=== PATIENT | female | born 1965 | race Caucasian/White ===

== ENCOUNTER → 2016-05-05 | Outpatient (CLI) | payer OTHER ==
[~2016-05-05] MED LIST: NA BICARBONATE 50 MEQ/50 ML VIAL ONE
--- NOTE | 2016-05-05 13:49 | DX ---
PA chest x-ray 1337 hours. HISTORY: Left-sided thoracentesis. Rule out pneumothorax. FINDINGS: Comparison to June 28, 2014 chest x-ray study and prior CT chest study from [facility] from 2016. There is small band of residual atelectasis at the left base with tiny residual left effusion. There is no evidence of pneumothorax on the left. There is no new consolidation. Heart size and pulmonary v asculature are normal. Osseous structures are unchanged. IMPRESSION: 1. No evidence of pneumothorax following thoracentesis procedure. 2. Small amount of residual subsegmental atelectasis at the left base with possible tiny effusion.
[2016-05-05 15:16] LABS: LD, PLEURAL FLUID 620 IU/L
--- NOTE | 2016-05-05 15:44 | US ---
Ultrasound left breast HISTORY: Breast cancer with reconstructive surgery. Fluid collection behind the implant on the left. Comparison to prior outside CT images from [facility] from April 28, 2016 FINDINGS: Ultrasound was performed on the left. There is very poor visualization of the retro implant fluid collection by ultrasound. This collection probably measures about 8.9 x 1 x 4.2 cm. A safe acc ess for possible needle aspiration cannot be appreciated. IMPRESSION: Small fluid collection identified behind the implant. A safe access for possible aspirati on could not be identified. If there is high clinical concern for possible infection or metastatic di sease associated with this fluid collection, this could potentially be aspirated with CT guidance alt kd there is moderate risk of damaging the implant.
--- NOTE | 2016-05-05 15:46 | US ---
Ultrasound-Guided Thoracentesis History: Left pleural effusion. Crosscutting Measure #226: Current tobacco user: no. Findings: Following informed consent, the left pleural effusion was localized by ultrasound. The skin was then prepped and draped in sterile fashion. Following local anesthesia with 1% lidocaine, a thor acentesis needle and catheter were advanced into the pleural fluid. A total of 300 mL of serous fluid was obtained and sent for the requested studies. Post thoracentesis image of the left hemithorax demonstrates no significant residual effusion. Impression: Successful ultrasound-guided thoracentesis obtaining 300 mL of serous fluid sent for the requested studies.
[2016-05-06 15:56] LABS: FINAL DIAGNOSIS See Comments (()); MICROSCOPIC DESCRIPTION See Comments (()); SPECIAL STUDIES See Comments (())
[2016-05-14 15:53] LABS: HER2 FISH DISCLAIMER See Comments (()); HER2 FISH INTERPRETATION See Comments (()); HER2 FISH RESULT SUMMARY Negative (()); HER2 FISH TISSUE ID 17P 74 (())
== END ==
LOC: FIMAGING 11:45
PROVIDERS: ATTEND Internal Medicine Hematology & Oncology
PROC: 0W9B3ZX Drainage of Left Pleural Cavity, Percutaneous Approach, Diagnostic (ICD-10-PCS; principal; 2016-05-05)
DX: J91.0 Malignant pleural effusion (principal); Z85.3 Personal history of malignant neoplasm of breast
CPT/HCPCS: 85060-90; 88184-90; 88185-91

== ENCOUNTER 2016-05-06 15:30 | Emergency (ER) | payer OTHER ==
[2016-05-06 15:37] VITALS: RESP 16; TEMP 97.9
[2016-05-06] MEDS ORDERED: NS 1,000 ML IV ONE (15:41)
--- NOTE | 2016-05-06 16:01 | EDPHY ---
H & P Time Seen by Provider: 05/06/16 15:42 HPI/ROS: CHIEF COMPLAINT: Left-sided chest and back pain, shortness of breath. HISTORY OF PRESENT ILLNESS: This patient is a 51-year-old female with a history of breast cancer who presents for CTA chest to r/o PE. She presents with back pain, lower chest pain, and shortness of breath for the past 2 weeks. The chest pain is below her left breast and she describes an area of swelling and erythema. The chest pain is worsened with breathing and is associated with left sided back pain. The shortness of breath and difficulty breathing are now causing her to get out of breath with normal exertion. Associated with swelling and skin tightness of the left breast area (implant in place). She has seen her plastic surgeon for the implant-related swelling and was placed on an abx 8 days ago (unknown abx). She had a CT scan recently that showed fluid in her left lung and behind her breast plate. She had a thoracentesis 2d ago with 300ml drained, though the SOB has not changed. Breast ultrasound yesterday revealed minimal fluid around the implant, not felt to be sufficient to drain. REVIEW OF SYSTEMS: A complete 10-point review of systems was performed and is negative except for those items mentioned in the HPI. Past Medical/Surgical History: Breast cancer treated with chemotherapy, mastectomy, radiation. Social History: Nonsmoker. Smoking Status: Never smoked Physical Exam: General Appearance: Alert, pleasant Eyes: Pupils equal and round, no conjunctival pallor or injection ENT, Mouth: Mucous membranes moist Neck: Normal inspection Respiratory: Rales at right base. Decreased breath sounds at left base. Cardiovascular: Regular rate and rhythm Chest: Left breast: Tense, with erythema on the inferior aspect. Patchy erythematous rash just below left breast. No warmth. Gastrointestinal: Abdomen is soft and non-tender Neurological: A&O, nonfocal, normal gait Skin: Warm and dry Extremities: Nontender, no pedal edema Psychiatric: Mood and affect normal Constitutional: Initial Vital Signs Temperature (C) 36.6 C 05/06/16 15:35 Heart Rate 90 05/06/16 15:35 Respiratory Rate 16 05/06/16 15:35 Blood Pressure 107/86 H 05/06/16 15:35 O2 Sat (%) 92 05/06/16 15:35 O2 Delivery Mode Room Air Allergies/Adverse Reactions: No Known Allergies Allergy (Unverified 06/15/14 14:01) Medical Decision Making - Diagnostics Imaging: Study: CT of the chest. Indication: Pain, difficulty breathing. Results: 1. No definite pulmonary thromboemboli. 2. Minimal left pleural effusion, with left lower lobe pneumonitis versus atelectasis. 3. No pneumothorax. 4. Fluid posterior to the left breast implant again noted. The study was read by the radiologist, Dr. Shipley. I viewed the images myself on the PACS system. ED Course/Re-evaluation: This pt presents with subacute SOB, which has persisted after recent thorascentesis. Vital signs normal, including oxygen saturation. Concern for implant-related sx, given tenseness of area, which could restrict her breathing. The area of erythema is concerning for cellulitis, though this area is not warm and not indurated, and she is already on abx. Query metastatic disease. I reviewed the patient's past medical notes. The pathology report for the fluid from the thoracentesis is still pending. An IV was established and labs ordered. 1L IV saline administered for hydration. Chest CT ordered. 1726: Dr. Shpiley communicated the results of the chest CT to me as no evidence of pulmonary embolism. Results d/w pt, will f/u with oncologist and plastic surgeon. Differential Diagnosis: includes though not limited to PE, pulm edema, pneumonia, empyema, cellulitis, implant infection, metastatic disease. - Data Points Laboratory Results: Laboratory Results 05/06/16 16:15 05/06/16 16:15 Medications Given: Discontinued Medications Sodium Chloride (Ns) 1,000 mls @ 0 mls/hr IV ONCE ONE PRN Reason: Wide Open Stop: 05/06/16 15:42 Last Admin: 05/06/16 16:41 Dose: 1,000 mls Departure - Departure Disposition: Home, Routine, Self-Care Clinical Impression: Dyspnea Qualifiers: Dyspnea type: dyspnea on exertion Qualifier Code: (R06.09) Other forms of dyspnea Malignant neoplasm of breast Qualifiers: Breast location: unspecified site of breast Patient sex: female Laterality: left Qualifier Code: (C50.912) Malignant neoplasm of unspecified site of left female breast Condition: Good Instructions: Dyspnea (ED) Additional Instructions: Your chest CT today showed no pulmonary embolism. Call Dr. Low tomorrow to set up a follow up appointment. Return to the emergency department for any serious worsening of condition. Referrals: Diana Low MD [Primary Care Provider] - As per Instructions Report Scribed for: Kate Harkins Report Scribed by: Juliocesar Patel Date of Report: 05/06/16 Time of Report: 16:01 Physician Review and Approval Statement: 05/06/16 16:01 Portions of this note were transcribed by a biomedical engineering professor. I personally performed a history, physical exam, medical decision making, and confirmed accuracy of information the transcribed note.
[2016-05-06 16:28] LABS: % IMMATURE GRANULYOCYTES 0.3 % (0.0-1.1); ABSOLUTE IMMATURE GRANULOCYTES 0.02 10^3/uL (0.00-0.10); ADD DIFF? NO; ADD MORPH? NO; ADD SCAN? NO; ATYPICAL LYMPHOCYTE FLAG 30 (0-99); FRAGMENT RBC FLAG 0 (0-99); HEMATOCRIT 40.9 % (38.0-47.0); HEMOGLOBIN 13.7 g/dL (12.6-16.3); LEFT SHIFT FLG 0 (0-99); LIPEMIA HEMOLYSIS FLAG 80 (0-99); MEAN CELL HEMOGLOBIN 30.6 pg (27.9-34.1); MEAN CELL HEMOGLOBIN CONCENTR. 33.5 g/dL (32.4-36.7); MEAN CELL VOLUME 91.5 fL (81.5-99.8); MEAN PLATELET VOLUME 9.2 fL (8.7-11.7); PLATELET CLUMPS FLAG 10 (0-99); PLATELET COUNT 372 10^3/uL (150-400); RED BLOOD CELL COUNT 4.47 10^6/uL (4.18-5.33); RED CELL DISTRIBUTION WIDTH 12.3 % (11.5-15.2)
[2016-05-06] MEDS ORDERED: IOPAMIDOL (ISOVUE 370) 100 ML BTL IV ONE (16:39)
[2016-05-06 16:51] LABS: ANION GAP 11 mEq/L (8-16); CALCIUM 9.2 mg/dL (8.5-10.4); CARBON DIOXIDE 26 mEq/l (22-31); CHLORIDE 104 mEq/L (97-110); CREATININE 0.8 mg/dL (0.6-1.0); GLOMERULAR FILTRATION RATE > 60; GLUCOSE 96 mg/dL (70-100); POTASSIUM 4.4 mEq/L (3.5-5.2); SODIUM 141 mEq/L (134-144)
--- NOTE | 2016-05-06 17:38 | CT ---
CT Chest Pulmonary Angiogram, With Contrast Enhancement and Multiplanar Reconstructions, at 1655 hour s History: Chest pain, dyspnea, breast cancer. Technique: 1.25-mm axial multidetector helical CT angiogram imaging was performed through the chest while 90 mL Isovue-370 were injected intravenously, without complication. The images were then trans ferred to an independent workstation where multiplanar and three-dimensional reconstructions were per formed by the interpreting physician and reviewed at multiple windows. Dose reduction techniques wer e utilized. Comparison: Chest x-ray from yesterday. CT Pulmonary Angiogram Findings: No CT evidence of definite pulmonary thromboemboli. No aortic aneu rysm or dissection. Aberrant right subclavian artery coursing posterior to the esophagus. CT Chest Findings: Minimal left pleural effusion. Patchy left lower lobe atelectasis versus pneumon itis. No suspicious pulmonary nodules or significant adenopathy. No pneumothorax. The heart is nor mal in size, without a pericardial effusion. Bilateral reconstruction implants. Fluid posterior to the left implant measures 17 mm in thickness and 8 cm in transverse dimension. Surgical clips left a xillary region from previous lymph node dissection, with residual scarring. Impressions 1. No definite pulmonary thromboemboli. 2. Minimal left pleural effusion, with left lower lobe pneumonitis versus atelectasis. 3. No pneumothorax. 4. Fluid posterior to the left breast implant again noted. Findings and recommendations discussed with Emergency Department physician, Dr. Kate Harkins at 1720 hours, on May 06, 2016. Final report concurs with initial preliminary interpretation.
[2016-05-06 17:45] VITALS: BP 100/73; PULSE 67; O2SAT 98
== END 2016-05-06 17:45 | disposition home or self-care (01) ==
DX: R06.09 Other forms of dyspnea (principal); C50.912 Malignant neoplasm of unspecified site of left female breast
CPT/HCPCS: 82947-QW; Q9967

== ENCOUNTER → 2016-06-23 | Outpatient (CLI) | payer OTHER ==
[~2016-06-23] MED LIST changes: +LIDOCAINE 1% 30 ML SDV ONE
== END ==
LOC: FIMAGING 14:05
PROVIDERS: ATTEND Nurse Practitioner
PROC: 0W9B3ZZ Drainage of Left Pleural Cavity, Percutaneous Approach (ICD-10-PCS; principal; 2016-06-23)
DX: J90 Pleural effusion, not elsewhere classified (principal); J98.11 Atelectasis

== ENCOUNTER 2016-07-03 11:48 | Day surgery (SDC) | payer OTHER ==
--- NOTE | 2016-07-03 07:47 | GHP ---
[f rep st] HISTORY AND PHYSICAL DATE OF ADMISSION: 07/03/2016 CHIEF COMPLAINT: Breast cancer. HISTORY OF PRESENT ILLNESS: The patient is a 51-year-old woman who was diagnosed with locally advanced breast cancer in 2014. She underwent chemotherapy. Unfortunately, she has recurrence and requires additional chemotherapy. PAST MEDICAL HISTORY: Breast cancer, asthma, back pain. PAST SURGICAL HISTORY: L4-L5 fusion, eye surgery, bilateral mastectomies with reconstruction MEDICATIONS: Please see medication reconcillation ALLERGIES: No known drug allergies. SOCIAL HISTORY: She is with 2 children. She denies tobacco or illegal drug use. FAMILY HISTORY: Her brother had brain cancer. Her uncle had colon cancer. REVIEW OF SYSTEMS: Significant for chronic back pain, otherwise negative. PHYSICAL EXAMINATION: GENERAL: Pleasant, well-nourished, well-groomed woman. HEENT: Normocephalic. No gross hearing deficit. Mucous membranes moist. Pupils equal and round. No scleral icterus. LUNGS: Clear to auscultation bilaterally. No increased work of breathing. CARDIAC: Regular rate. MUSCULOSKELETAL: Normal nails. SKIN: Warm and dry. IMPRESSION AND PLAN: The patient is a 51-year-old with locally advanced breast cancer and recurrence. Will attempt port placement. We discussed the risks and benefits, including, but not limited to, stroke, heart attack, , blood clots, infection, and bleeding. She understands if it becomes infected it will need to be removed. She had her questions answered to her satisfaction. /[id number]/MODL MTDD
[~2016-07-03 11:48] MED LIST changes: -LIDOCAINE 1% 30 ML SDV ONE; -NA BICARBONATE 50 MEQ/50 ML VIAL ONE; +ceFAZolin 2 GM/DEXTROSE 100 ML IV ONE
[2016-07-03] MEDS ORDERED: CEFAZOLIN 2 GM/DEXTROSE/100 ML BAG IV ONE (12:35)
[2016-07-03] MEDS ORDERED: LIDOCAINE 1% 2 ML INJ ONE (12:35)
[2016-07-03] MEDS ORDERED: MIDAZOLAM 2 MG/2 ML VIAL ONE (14:09)
[2016-07-03] MEDS ORDERED: fentaNYL 100 MCG/2 ML INJ ONE (14:12)
[2016-07-03] MEDS ORDERED: PROPOFOL/EMULSION 500 MG/50 ML BOTTLE IV ONE (14:13)
[2016-07-03] MEDS ORDERED: BUPIVACAINE 0.5% 30 ML SDV ONE (14:18)
[2016-07-03] MEDS ORDERED: SKIN ADHESIVE (DERMABOND) 1 EACH TP ONE (14:18)
[2016-07-03] MEDS ORDERED: LIDOCAINE 1% 30 ML SDV ONE (14:19)
[2016-07-03] MEDS ORDERED: HYDROCODONE/APAP 5/325 TAB PO PRN (15:20)
--- NOTE | 2016-07-04 14:47 | GOP ---
[f rep st] OPERATIVE REPORT DATE OF OPERATION: 07/03/2016 SURGEON: Bela Cota MD ANESTHESIA: General monitored anesthesia care with IV sedation. ANESTHESIOLOGIST: Maribel Waldron MD. PREOPERATIVE DIAGNOSIS: Breast cancer. POSTOPERATIVE DIAGNOSIS: Breast cancer. PROCEDURE PERFORMED: Right subclavian Slim PowerPort placement. FINDINGS: Tip in the SVC/RA junction. SPECIMENS: None. ESTIMATED BLOOD LOSS: 10 cc. INDICATIONS: Patient is a 51-year-old woman who was treated for breast cancer several years ago. She has recurrence and will require chemotherapy again. DESCRIPTION OF PROCEDURE: Patient was brought into the operating room, placed supine on the table and IV general anesthesia was administered. Her bilateral neck and chest were prepped and draped in the usual sterile fashion. I infiltrated all sites with 0.5% Marcaine mixed with 1% lidocaine prior to making incision. I accessed her right subclavian vein on the 2nd attempt with dark return of blood flow. I threaded the guidewire and removed the needle. I created a pocket to accommodate the port in her right chest at the site of her previous port. I tunneled this up to the insertion site. Under fluoroscopy, I measured the catheter and cut it to size. Under fluoroscopy and using the Seldinger technique, I placed a dilator and sheath over the wire. I removed the dilator and the wire. I placed the catheter through the sheath; however, I was having difficulty threading it. The catheter was making a right angle. I then removed the catheter. I placed the guidewire back in place through the sheath. I removed the sheath and held pressure. I then obtained a 10-Icelandic sheath and placed this over the guidewire under fluoroscopy. It made the turn nicely. I then could thread the catheter easily through the sheath and peeled away the sheath. Placement was confirmed with fluoroscopy. The port withdrew blood easily and was flushed with heparin. The pocket was closed with 3-0 Vicryl, followed by 4-0 Monocryl. Dermabond applied. She was awakened in the operating room and transferred to PACU in stable condition. Her post operative chest x-ray showed the port in good position at the cavoatrial junction without pneumothorax and her left pleural effusion is reaccumulating. /[id number]/MODL MTDD
== END 2016-07-03 17:35 | disposition home or self-care (01) ==
LOC: FSGY 11:48
PROVIDERS: ATTEND Surgery
DX: C50.919 Malignant neoplasm of unspecified site of unspecified female breast (principal); J90 Pleural effusion, not elsewhere classified; G89.29 Other chronic pain; Z98.1 Arthrodesis status; Z90.13 Acquired absence of bilateral breasts and nipples
CPT/HCPCS: C1788; J0690; J2250; J2704; J3010

== ENCOUNTER 2016-07-14 07:43 | Emergency (ER) | payer OTHER ==
--- NOTE | 2016-07-14 08:07 | EDPHY ---
H & P Time Seen by Provider: 07/14/16 08:03 HPI/ROS: CHIEF COMPLAINT: Dyspnea HISTORY OF PRESENT ILLNESS: This patient is a 51 year old female with history of breast cancer on chemotherapy who presents to the Emergency Department complaining of difficulty breathing over the past four days. Onset of cough 4 days ago, associated with gradually increasing SOB. She has a history of intermittent chest tightness and dyspnea since April for which she has had thorascentesis twice for a left pleural effusion with successful improvement to her symptoms each time. Upon arrival, she continues to complain of persistent exertional dyspnea with associated persistent cough. She denies fever or chills. She had a port placed two weeks prior to arrival without complication. Her next chemotherapy session is tomorrow. REVIEW OF SYSTEMS: Constitutional: No fever, no chills Eyes: No visual changes ENT: No sore throat Respiratory: +shortness of breath, +cough Cardiac: +chest tightness Gastrointestinal: No nausea, no vomiting, no abdominal pain Genitourinary: No hematuria, no dysuria Musculoskeletal: No leg pain or swelling Skin: No rash Neurological: No headache, no numbness, no weakness Psychiatric: No depression Past Medical/Surgical History: Breast cancer. Social History: Non-smoker. Smoking Status: Never smoked Physical Exam: General Appearance: Alert, no respiratory distress Eyes: Pupils equal and round, no conjunctival pallor or injection ENT, Mouth: Mucous membranes moist Neck: Normal inspection Respiratory: Rales at the bases Chest: Right-sided port with mild erythema on superior edge of the surgical incision. Breast implants; left breast is firm without erythema or tenderness Cardiovascular: Regular rate and rhythm Gastrointestinal: Abdomen is soft and non-tender Neurological: A&O, nonfocal, normal gait Skin: Warm and dry, no rash Extremities: Nontender, no pedal edema Psychiatric: Mood and affect normal Constitutional: Initial Vital Signs Temperature (C) 36.3 C 07/14/16 07:45 Heart Rate 109 H 07/14/16 07:45 Respiratory Rate 16 07/14/16 07:45 Blood Pressure 110/75 07/14/16 07:45 O2 Sat (%) 88 L 07/14/16 07:45 O2 Delivery Mode Room Air O2 (L/minute) 2 Allergies/Adverse Reactions: No Known Allergies Allergy (Verified 07/02/16 17:02) Home Medications: Medication Instructions Recorded Dulera 100 Mcg/5 Mcg Inhaler 07/02/16 Herbals/Supplements -Info Only 07/02/16 Oxycodone HCl 07/02/16 Prochlorperazine Maleate 07/02/16 levOFLOXACIN [levAQUIN (RX)] 750 mg PO DAILY #9 tab 07/14/16 Medical Decision Making - Diagnostics EKG Interpretation: The 12 lead EKG was interpreted by myself reveals sinus rhythm, rate 93; ventricular premature complex' borderline R wave progression in the anterior leads. Imaging: Imaging Impressions Chest X-Ray 07/14/16 08:30 Impression: 1. Stable positioning of the right-sided central venous catheter MediPort. 2. Reduction in the size of the left pleural effusion and degree of left basilar atelectatic change, compared to 07/03/2016. Chest/Thorax CTA 07/14/16 10:06 Impression: 1. No acute thrombopulmonary embolic disease. 2. Small left pleural effusion and left basilar compressive atelectasis are unchanged. 3. New infectious inflammatory groundglass opacities in the right upper lobe and right lower lobe with associated diffuse bronchitis and bronchiolitis. 4. Abnormal left supraclavicular and left axillary lymph nodes and small sclerotic lesion in the sternum are unchanged. Findings discussed with Emergency Department physician, Dr. Kate Harkins on July 14, 2016 at 1130 hours. ED Course/Re-evaluation: This 51 year old female with breast cancer on chemotherapy has a history of intermittent exertional dyspnea requiring chest tube drainage who presents complaining of exertional dyspnea over the past four days without any identified alleviating factors. She is tachycardic at 109 with O2 sat at 88% on RA. She has a left-sided port placement with mild erythema superior to the surgical site but no other indications of infection or other complication. Patient placed on O2 via nasal cannula. Will proceed with EKG and chest x-ray. Prior medical records reviewed by myself, including visit to the ED in 04/2016. Chest x-ray reviewed and does not reveal any explanatory factor for the patient' s complaint of exertional dyspnea. Small left pleural effusion present. Will proceed with CTA of the chest. CTA results reported to me by the radiologist. Concerning for pneumonitis, infectious vs chem-related. Will start pt on Levaquin. 1139: I discussed imaging and lab results with the patient. She will be discharged home with instructions to follow-up as an outpatient tomorrow with her oncologist. She declined in-home O2 despite my recommendation. She is clear that she will need to return to the ED for any worsening dyspnea or chest discomfort. O2 Sat ranges from 90-91% on RA prior to discharge. Differential Diagnosis: includes though not limited to pneumonia, pleural effusion, PE, ACS, metastatic disease. - Data Points Laboratory Results: Laboratory Results 07/14/16 09:20 07/14/16 09:20 07/14/16 07/14/16 07/14/16 09:45 09:20 09:20 WBC 4.21 10^3/uL 10^3/uL (3.80-9.50) RBC 3.78 10^6/uL L 10^6/uL (4.18-5.33) Hgb 12.3 g/dL L g/dL (12.6-16.3) Hct 35.9 % L % (38.0-47.0) MCV 95.0 fL fL (81.5-99.8) MCH 32.5 pg pg (27.9-34.1) MCHC 34.3 g/dL g/dL (32.4-36.7) RDW 16.2 % H % (11.5-15.2) Plt Count 160 10^3/uL 10^3/uL (150-400) MPV 9.0 fL fL (8.7-11.7) Neut % (Auto) 77.3 % H % (39.3-74.2) Lymph % (Auto) 19.2 % % (15.0-45.0) Gray % (Auto) 1.4 % L % (4.5-13.0) Eos % (Auto) 0.7 % % (0.6-7.6) Baso % (Auto) 0.7 % % (0.3-1.7) Nucleat RBC Rel Count 0.0 % % (0.0-0.2) Absolute Neuts (auto) 3.25 10^3/uL 10^3/uL (1.70-6.50) Absolute Lymphs (auto) 0.81 10^3/uL L 10^3/uL (1.00-3.00) Absolute Monos (auto) 0.06 10^3/uL L 10^3/uL (0.30-0.80) Absolute Eos (auto) 0.03 10^3/uL 10^3/uL (0.03-0.40) Absolute Basos (auto) 0.03 10^3/uL 10^3/uL (0.02-0.10) Absolute Nucleated RBC 0.00 10^3/uL 10^3/uL (0-0.01) Immature Gran % 0.7 % % (0.0-1.1) Immature Gran # 0.03 10^3/uL 10^3/uL (0.00-0.10) PT 13.5 SEC SEC (12.0-15.0) INR 1.04 (0.83-1.16) APTT 23.0 SEC SEC (23.0-38.0) Sodium 136 mEq/L mEq/L (134-144) Potassium 4.2 mEq/L mEq/L (3.5-5.2) Chloride 103 mEq/L mEq/L (97-110) Carbon Dioxide 24 mEq/l mEq/l (22-31) Anion Gap 9 mEq/L mEq/L (8-16) BUN 16 mg/dL mg/dL (7-23) Creatinine 0.8 mg/dL mg/dL (0.6-1.0) Estimated GFR > 60 Glucose 112 mg/dL H mg/dL (70-100) Calcium 8.9 mg/dL mg/dL (8.5-10.4) Medications Given: Discontinued Medications Levofloxacin (Levaquin) 750 mg PO EDNOW ONE PRN Reason: Protocol Stop: 07/14/16 11:40 Last Admin: 07/14/16 12:00 Dose: 750 mg Departure - Departure Disposition: Home, Routine, Self-Care Clinical Impression: Pneumonitis Condition: Good Instructions: Pneumonitis (ED) Additional Instructions: 1. Keep your appointment tomorrow with your oncologist. 2. Take Levaquin as directed for the entire course of the prescription. 3. Return to the Emergency Department with worsening shortness of breath or chest tightness or for other serious concerns. Referrals: Megan Kee PA [Primary Care Provider] - As per Instructions Prescriptions: levOFLOXACIN [levAQUIN (RX)] 750 mg PO DAILY #9 tab Report Scribed for: Kate Harkins Report Scribed by: Gladis Mcclendon Date of Report: 07/14/16 Time of Report: 08:06 Physician Review and Approval Statement: 07/14/16 08:06 Portions of this note were transcribed by a medical billing manager. I personally performed a history, physical exam, medical decision making, and confirmed accuracy of information the transcribed note.
--- NOTE | 2016-07-14 08:21 | CPEKG ---
Heart Rate: 93 RR Interval: 645 P-R Interval: 160 QRSD Interval: 68 QT Interval: 332 QTC Interval: 413 P [place]: 73 QRS [place]: 31 T Wave [place]: 19 EKG Severity - BORDERLINE ECG - EKG Impression: SINUS RHYTHM EKG Impression: VENTRICULAR PREMATURE COMPLEX EKG Impression: BORDERLINE R WAVE PROGRESSION, ANTERIOR LEADS Electronically Signed By: Kate Harkins 14-Jul-2016 10:16:06
[2016-07-14 09:33] LABS: % IMMATURE GRANULYOCYTES 0.7 % (0.0-1.1); ABSOLUTE IMMATURE GRANULOCYTES 0.03 10^3/uL (0.00-0.10); ADD DIFF? NO; ADD MORPH? NO; ADD SCAN? NO; ATYPICAL LYMPHOCYTE FLAG 30 (0-99); FRAGMENT RBC FLAG 0 (0-99); HEMATOCRIT 35.9 % (38.0-47.0); HEMOGLOBIN 12.3 g/dL (12.6-16.3); LEFT SHIFT FLG 30 (0-99); LIPEMIA HEMOLYSIS FLAG 90 (0-99); MEAN CELL HEMOGLOBIN 32.5 pg (27.9-34.1); MEAN CELL HEMOGLOBIN CONCENTR. 34.3 g/dL (32.4-36.7); PLATELET CLUMPS FLAG 0 (0-99); PLATELET COUNT 160 10^3/uL (150-400); RED BLOOD CELL COUNT 3.78 10^6/uL (4.18-5.33); RED CELL DISTRIBUTION WIDTH 16.2 % (11.5-15.2)
[2016-07-14 09:44] LABS: ANION GAP 9 mEq/L (8-16); CALCIUM 8.9 mg/dL (8.5-10.4); CARBON DIOXIDE 24 mEq/l (22-31); CHLORIDE 103 mEq/L (97-110); CREATININE 0.8 mg/dL (0.6-1.0); GLOMERULAR FILTRATION RATE > 60; GLUCOSE 112 mg/dL (70-100); POTASSIUM 4.2 mEq/L (3.5-5.2); SODIUM 136 mEq/L (134-144)
[2016-07-14 10:28] LABS: INR 1.04 (0.83-1.16); PROTIME(PATIENT) 13.5 SEC (12.0-15.0)
[2016-07-14] MEDS ORDERED: IOPAMIDOL (ISOVUE 370) 100 ML BTL IV ONE (10:37)
[2016-07-14 12:14] VITALS: RESP 16
[2016-07-14 12:15] VITALS: BP 106/65; PULSE 73; TEMP 97.9; O2SAT 91
== END 2016-07-14 12:15 | disposition home or self-care (01) ==
DX: J18.9 Pneumonia, unspecified organism (principal); Z85.3 Personal history of malignant neoplasm of breast
CPT/HCPCS: Q9967

== ENCOUNTER → 2016-07-22 | Outpatient (CLI) | payer OTHER | LOC: FLAB 12:51 → EDSTATUS 12:52 → FIMAGING 12:52 | PROVIDERS: ATTEND Internal Medicine Hematology & Oncology | DX: J90 Pleural effusion, not elsewhere classified (principal); C50.412 Malignant neoplasm of upper-outer quadrant of left female breast ==

== ENCOUNTER → 2016-08-11 | Outpatient (CLI) | payer OTHER | LOC: FIMAGING 09:57 | PROVIDERS: ATTEND Internal Medicine Hematology & Oncology | DX: C79.51 Secondary malignant neoplasm of bone (principal); Z85.3 Personal history of malignant neoplasm of breast | CPT/HCPCS: 78306; A9503; J1642 ==

== ENCOUNTER 2016-09-10 15:08 | Day surgery (SDC) | payer OTHER ==
[2016-09-10] MEDS ORDERED: ACETAMINOPHEN 325 MG TAB PO ONE (15:30)
[2016-09-10] MEDS ORDERED: ALTEPLASE 2 MG VIAL IVP ONE (16:30)
== END 2016-09-10 21:05 | disposition home or self-care (01) ==
LOC: FOBOP 15:08
PROVIDERS: ATTEND Internal Medicine Hematology & Oncology
PROC: 30233N1 Transfusion of Nonautologous Red Blood Cells into Peripheral Vein, Percutaneous Approach (ICD-10-PCS; principal; 2016-09-10)
DX: C50.919 Malignant neoplasm of unspecified site of unspecified female breast (principal); C79.89 Secondary malignant neoplasm of other specified sites; D64.81 Anemia due to antineoplastic chemotherapy; D70.2 Other drug-induced agranulocytosis; J91.0 Malignant pleural effusion; T45.1X5A Adverse effect of antineoplastic and immunosuppressive drugs, initial encounter
CPT/HCPCS: 36430; P9016; J1642; J2997

== ENCOUNTER 2016-10-08 10:25 | Outpatient (CLI) | payer OTHER ==
[2016-10-08] MEDS ORDERED: ACETAMINOPHEN 325 MG TAB PO ONE (13:30)
[2016-10-08] MEDS ORDERED: FUROSEMIDE 20 MG/2 ML VIAL IVP ONE (13:30)
[2016-10-08] MEDS ORDERED: diphenhydrAMINE 25 MG CAP PO ONE (13:30)
== END 2016-10-08 16:37 | disposition home or self-care (01) ==
LOC: FOBOP 10:25
PROVIDERS: ATTEND Internal Medicine Hematology & Oncology
PROC: 30263N1 (ICD-10-PCS; principal; 2016-10-08)
DX: C50.919 Malignant neoplasm of unspecified site of unspecified female breast (principal)
CPT/HCPCS: 36430; P9016; J1642; J1940

== ENCOUNTER → 2016-11-02 | Outpatient (CLI) | payer OTHER | LOC: FIMAGING 08:23 | PROVIDERS: ATTEND Internal Medicine Hematology & Oncology | DX: C79.51 Secondary malignant neoplasm of bone (principal); C50.919 Malignant neoplasm of unspecified site of unspecified female breast | CPT/HCPCS: 78306; A9503; J1642 ==

== ENCOUNTER 2016-11-10 17:29 | Outpatient (CLI) | payer OTHER ==
[2016-11-10] MEDS ORDERED: diphenhydrAMINE 25 MG CAP PO ONE (18:00)
[2016-11-10] MEDS ORDERED: ACETAMINOPHEN 325 MG TAB PO ONE (18:00)
== END 2016-11-10 23:27 | disposition home or self-care (01) ==
LOC: FOBOP 17:29
PROVIDERS: ATTEND Internal Medicine Hematology & Oncology
PROC: 30243N1 Transfusion of Nonautologous Red Blood Cells into Central Vein, Percutaneous Approach (ICD-10-PCS; principal; 2016-11-10)
DX: C50.919 Malignant neoplasm of unspecified site of unspecified female breast (principal)
CPT/HCPCS: 36430; P9016; J1642

== ENCOUNTER → 2016-11-12 | Outpatient (CLI) | payer OTHER ==
[~2016-11-12] MED LIST changes: +LIDOCAINE 1% 300 MG/30 ML SDV ONE; -ceFAZolin 2 GM/DEXTROSE 100 ML IV ONE
== END ==
LOC: FIMAGING 11:30
PROVIDERS: ATTEND Internal Medicine Hematology & Oncology
PROC: 0W9B3ZZ Drainage of Left Pleural Cavity, Percutaneous Approach (ICD-10-PCS; principal; 2016-11-12)
DX: C50.919 Malignant neoplasm of unspecified site of unspecified female breast (principal); J91.0 Malignant pleural effusion; J98.11 Atelectasis

== ENCOUNTER → 2016-11-16 | Outpatient (CLI) | payer OTHER | LOC: FIMAGING 10:42 | PROVIDERS: ATTEND Nurse Practitioner | DX: Z13.6 Encounter for screening for cardiovascular disorders (principal); C50.919 Malignant neoplasm of unspecified site of unspecified female breast | CPT/HCPCS: A9538 ==

== ENCOUNTER → 2016-12-23 | Outpatient (CLI) | payer OTHER | LOC: FIMAGING 11:47 | PROVIDERS: ATTEND Internal Medicine Hematology & Oncology | PROC: 0W9B3ZZ Drainage of Left Pleural Cavity, Percutaneous Approach (ICD-10-PCS; principal; 2016-12-23) | DX: J94.8 Other specified pleural conditions (principal); C50.919 Malignant neoplasm of unspecified site of unspecified female breast ==

== ENCOUNTER 2017-01-05 09:16 | Inpatient (IN) | payer OTHER ==
--- NOTE | 2017-01-05 09:31 | EDPHY ---
H & P Stated Complaint: sob/had labs drawn was placed on o2 and sent to ed HPI/ROS: CHIEF COMPLAINT: Shortness of breath HISTORY OF PRESENT ILLNESS: The patient is a 51 y/o female [facility] complaining of shortness of breath for the last 2 -3 days. She has metastatic breast cancer and is currently undergoing chemotherapy. Her last dose (2nd dose) of Daxol was December 11 and she is due for her next treatment this week. She has had 5 previous malignant pleural effusions that required thoracentesis; her most recent drainage was two weeks ago. Her symptoms today feel somewhat different than her previous pleural effusions. She generally feels fatigued. No history of blood clots. No leg swelling, fever, ongoing coughing, vomiting, abdominal pain. REVIEW OF SYSTEMS: A ten point review of systems was performed and is negative with the exception of the items mentioned in the HPI. Past medical history: Asthma, breast cancer with metastases to sternum, rib, chest wall - chemotherapy, radiation Past surgical history: double mastectomy, 5 thoracenteses Family history: noncontributory Social history: at bedside. Oncologist: Dr. Low Prior medical records reviewed including today's [facility] labs and prior thoracentesis notes. General Appearance: Alert. Vital signs reviewed. Pressure 97/74, respiratory rate 22. 92% on nasal cannula oxygen. Eyes: Pupils equal and round, no conjunctival injection, no discharge. Anicteric. ENT, Mouth: Mucous membranes are moist, no oropharyngeal erythema or edema. Neck: No lymphadenopathy, supple. Respiratory: Lungs sound are diminished on the left and diminished on the right ; no wheezes, rales, or rhonchi. Cardiovascular: Regular rate and rhythm; no murmur, rub, or gallop. Gastrointestinal: Abdomen is soft and nontender, no masses or organomegaly, bowel sounds normal. Skin: Warm and dry, normal color, bandaged rash under base of left reconstructed breast - followed by wound clinic Back: Nontender to palpation over the thoracolumbar spine. No CVAT. Extremities: No lower extremity edema, no calf tenderness or swelling. Neurological: Alert and oriented. Moving all four extremities easily and equally. Psychiatric: Normal affect. - Personal History LMP (Females 10-55): Post Menopausal Current Tetanus/Diphtheria Vaccine: Yes - Medical/Surgical History Hx Asthma: Yes Hx Chronic Respiratory Disease: No Hx Diabetes: No Hx Cardiac Disease: No Hx Renal Disease: No Hx Cirrhosis: No Hx Alcoholism: No Hx HIV/AIDS: No Hx Splenectomy or Spleen Trauma: No Other PMH: chronic lower back pain , asthma, Breast and chest wall CA, port placed - Social History Smoking Status: Never smoked Constitutional: Initial Vital Signs Temperature (C) 36.4 C 01/05/17 09:21 Heart Rate 94 01/05/17 09:21 Respiratory Rate 22 H 01/05/17 09:21 Blood Pressure 97/74 L 01/05/17 09:21 O2 Sat (%) 92 01/05/17 09:21 O2 Delivery Mode Nasal Cannula O2 (L/minute) 3 Allergies/Adverse Reactions: No Known Allergies Allergy (Verified 01/05/17 09:20) Home Medications: Medication Instructions Recorded Mometasone/Formoterol [Dulera 200 2 gm IH BID 07/02/16 Mcg/5 Mcg Inhaler] Prochlorperazine Maleate 5 mg PO TIDMEAL PRN 07/02/16 [Compazine 5mg (*)] oxyCODONE IR [Oxycodone Ir (*)] 10 mg PO Q4HRS PRN 07/02/16 Ibuprofen [Motrin (*)] 600 mg PO Q4HRS PRN 01/05/17 Lidocaine 5% [Lidoderm 5% Patch 1 ea TD DAILY PRN 01/05/17 (*)] Medical Decision Making - Diagnostics Imaging: Discussed imaging studies w/ call center representative Radiologist, I viewed and interpreted images myself ED Course/Re-evaluation: 51 y/o female with metastatic breast cancer currently undergoing chemotherapy. She has had 5 previous malignant pleural effusions requiring drainage and today presents with 2-3 days of shortness of breath and increased fatigue. She has absent breath sounds on left and diminished on right. I suspect recurrent pleural effusion today. Her oncology PATIENT ACCOUNT ANALYST called prior to patient's arrival and informed me her chemotherapy could cause heart failure, so we will evaluate for that as well. We will not repeat her CBC and CHEM from this morning. I've added a BNP and ordered a chest x-ray and anticipate admission to the hospital. 1045: Reassessed patient and discussed work up thus far. Chest x-ray shows diffuse right lung opacities and small pleural effusion in the left base. No sign of pneumothorax. BNP is mildly elevated at 261. The effusion does not look like it would require emergent drainage. Her CBC from this morning shows anemia , which appears to be her baseline. She tells me she is scheduled for a full body CT or other scan tomorrow. 1100: Spoke with hospitalist service. Dr. Odom accepts admission. 1105: Consulted with Dr. Moreno, oncology on-call for Dr. Low. 1210: Calcium is elevated at 14.7. Chest CTA shows right-sided consolidation. Possible pneumonia vs drug reaction vs aspiration. No PE. It appears that recent shortness of breath is most likely a pneumonia. Patient was taken to the floor prior to receiving antibiotics--accepting physician aware and will evaluate and order antibiotics. Differential Diagnosis: I considered a ddx that includes but is not limited to pneumonia, pleural effusion, heart failure,PE, pneumothorax. - Data Points Medications Given: Acetaminophen (Tylenol) 650 mg PO Q4HRS PRN PRN Reason: Pain, Mild/Fever, Can Take PO Stop: 07/04/17 13:33 Last Admin: 01/06/17 12:59 Dose: 650 mg Albuterol (Proventil Neb) 3 ml IH Q2HRS PRN PRN Reason: Short of Breath/Dyspnea Stop: 07/07/17 09:32 Last Admin: 01/08/17 10:12 Dose: 3 ml Enoxaparin Sodium (Lovenox) 40 mg SC DAILY [facility] Stop: 07/05/17 08:59 Last Admin: 01/09/17 09:26 Dose: Not Given Levofloxacin/Dextrose (Levaquin 750 Mg (Premix)) 150 mls @ 100 mls/hr IV Q24H DANETTE PRN Reason: Protocol Stop: 02/04/17 14:59 Last Admin: 01/08/17 15:33 Dose: 150 mls Miscellaneous Medication (Mometasone/Formoterol [Dulera 200 Mcg/5 Mcg Inhaler]) 2 gm IH BID [facility] Stop: 07/04/17 20:59 Last Admin: 01/09/17 09:01 Dose: 2 puffs Ondansetron HCl (Zofran Odt) 4 mg PO Q4HRS PRN PRN Reason: Nausea/Vomiting, Use 1st Stop: 07/04/17 13:33 Last Admin: 01/06/17 09:20 Dose: 4 mg Oxycodone HCl (Oxycodone Ir) 10 mg PO Q4HRS PRN PRN Reason: Pain, Severe Stop: 01/15/17 14:11 Last Admin: 01/09/17 09:27 Dose: 10 mg Prochlorperazine Maleate (Compazine) 10 mg PO Q6HRS PRN PRN Reason: Nausea/Vomiting, Use 3rd Stop: 07/05/17 16:50 Last Admin: 01/09/17 09:27 Dose: 10 mg Senna (Senokot) 1 - 2 tab PO BID PRN PRN Reason: Constipation Stop: 07/05/17 21:29 Last Admin: 01/08/17 22:06 Dose: 2 tab Zolpidem Tartrate (Ambien) 5 - 10 mg PO HS PRN PRN Reason: Sleep/Insomnia, use 1st Stop: 07/04/17 13:33 Last Admin: 01/08/17 21:59 Dose: 5 mg Discontinued Medications Prochlorperazine Maleate (Compazine) 5 mg PO TIDMEAL PRN PRN Reason: Nausea/Vomiting, Use 1st Stop: 07/04/17 14:11 Last Admin: 01/07/17 08:40 Dose: 5 mg Departure - Departure Disposition: [facility] Inpatient Acute Clinical Impression: Lung infiltrate, Metastatic breast cancer Dyspnea Qualifiers: Dyspnea type: shortness of breath Qualified Code(s): R06.02 - Shortness of breath; R06.00 - Dyspnea, unspecified; R06.01 - Orthopnea Pneumonia Qualifiers: Pneumonia type: due to unspecified organism Laterality: right Lung location: upper lobe of lung Qualified Code(s): J18.1 - Lobar pneumonia, unspecified organism Condition: Fair Report Scribed for: Matilda Fontanez Report Scribed by: Maura Blandon Date of Report: 01/05/17 Time of Report: 09:39 Physician Review and Approval Statement: 01/05/17 09:30 Portions of this note were transcribed by the medical instrument cable fabricator. I, Dr. Matilda Fontanez, personally performed the history, physical exam, and medical decision- making; and confirmed the accuracy of the information in the transcribed note.
[2017-01-05] MEDS ORDERED: IOPAMIDOL (ISOVUE 370) 100 ML BTL IV ONE (11:17)
[2017-01-05] MEDS ORDERED: LIDOCAINE/PRILOCAINE 1 EACH CRTUBE TP ONE (11:22)
[2017-01-05] MEDS ORDERED: ZOLPIDEM TARTRATE 5 MG TAB PO PRN (13:34)
[2017-01-05] MEDS ORDERED: ONDANSETRON 4 MG/2 ML VIAL IVP PRN (13:34)
[2017-01-05] MEDS ORDERED: LIDOCAINE 5% 1 EA PATCH TD PRN (14:12)
[2017-01-05] MEDS ORDERED: IBUPROFEN 600 MG TAB PO PRN (14:12)
[2017-01-05] MEDS: oxyCODONE IR 5 MG TAB PO PRN ×2 (16:47→22:05)
[2017-01-05] MEDS: ONDANSETRON DISINTEGRATING 4 MG TAB PO PRN (16:59)
--- NOTE | 2017-01-05 19:02 | PDGENHP ---
History and Physical History and Physical: HISTORY AND PHYSICAL CC: Shortness of breath HISTORY: This patient with a long history of stage IV breast cancer and recurrent pleural effusions was doing well having had a thoracentesis, number 5 for her, 2 weeks ago. However she started developed shortness of breath 2 days ago which worsened and she presented initially to her oncologist's office Dr. Low today. There she had x-ray showing infiltrate and she is sent into the ER where she had a CT scan. She is now admitted to the hospital for further evaluation and care. She has a slight cough. There is no chest pain, pleuritic symptoms, fever symptoms, sore throat or upper respiratory symptoms, orthopnea, palpitations, or leg pain or swelling. No one around her has been sick with any similar symptoms. There is no headache, myalgias, arthralgias, or nausea or vomiting. Notably the patient does have a history of asthma. She takes Dulera inhaler twice daily chronically, and says that for the past month she has been using a little bit more albuterol than usual and says that it has been working for her. She has used in the last couple of days with some but not very significant benefit. Also notable is that the patient started on Doxil for chemotherapy and just had her 2nd dose on December 11 she is due for her 3rd dose this coming week. There has been hope that this therapy would not only treat her other metastatic disease but decrease her pleural effusion recurrence. ROS: A comprehensive 10 system review revealed no other significant findings PAST MEDICAL HISTORY: Stage IV breast cancer status post bilateral mastectomies, several different chemotherapies, and initially radiation therapy Asthma FAMILY MEDICAL HISTORY: Her father of a stroke mother still healthy SOCIAL HISTORY: lives with her who is here at the bedside. 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 She has 2 children 10/29/2020 who lives in [place]. MEDICATIONS: The patients list has been reconciled by our clinical pharmacist in the EMR. I have reviewed the list and ordered appropriate medicines. PHYSICAL EXAMINATION: Vital Signs: Stable without fever Peanut Picker: Sinus rhythm in the ER Examination: General: alert, oriented, good mentation, relaxed Skin: warm, dry, good color, no rash HEENT: normal Neck: no mass or jvd Resps: relaxed Lungs: Fairly diminished but otherwise unremarkable breath sounds Heart: regular, no murmur Abdomen: soft, nondistended, nontender, +BS, no mass Upper Extremities: normal Lower Extremities: no edema, warm No Bleeding or bruising Neurologic: normal speech/language, normal talent director, no focal weakness IV site: looks normal LABORATORY DATA: Some anemia but normal white count, chemistry remarkable There is a procalcitonin of 0.2 I did order a respiratory pathogen panel which comes back negative, and I have ordered blood cultures which are pending RADIOLOGY STUDIES: I reviewed chest x-ray done today in clinic as well as chest x-ray done 2 weeks ago, and I compared the images she had no effusion on the 2-week-old x-ray after her thoracentesis then, and there were no infiltrates essentially an unremarkable chest x-ray. Today she has summary occurrence of her left-sided pleural effusion but more concerning to me is she has a fairly significant right upper lobe alveolar infiltrate that is diffuse in that part of that long but no other infiltrates. The there is also a CT scan which again shows right upper lobe alveolar infiltrate and left pleural effusion ASSESSMENT: -acute dyspnea and hypoxemia, acute respiratory failure, with right upper lobe infiltrates and cough, as well as some recurrent left pleural effusion. Because of her dyspnea is most likely related to her right upper lobe infiltrates and I believe that this likely is infectious pneumonia given the focal nature of the radiologic abnormality. However without fever or white count elevation would have to be certain that this is not related to her chemotherapy. -suspect acute infectious pneumonia -recurrent left pleural effusion which is malignant, after her recent 5th thoracentesis -metastatic cancer of breast with disease in the skeleton and pleural effusions , on new chemotherapy PLANS: -will begin empiric antibiotic therapy and follow her course closely -continue her albuterol and Dulera -I do not believe that it will be very beneficial at this time to do a thoracentesis again but if she has worsening of respiratory issues here would need to do that again. She will certainly eventually need another thoracentesis but hopefully her chemotherapy will treat this disease so that she no longer needs that as recurrent procedure. If she does need further thoracenteses she should probably consider either a drain tube or a pleurodesis and I reviewed this with her and her . I have reviewed the patient's case in detail with Dr. Dr. Sneha Moreno I have reviewed the patient's past medical records as part of this assessment, including previous hospital records including physician notes, laboratory data, x-ray images
[2017-01-05] MEDS ORDERED: FORMOTEROL IH SCH (21:00)
[2017-01-05] MEDS ORDERED: MOMETASONE IH SCH (21:00)
[2017-01-05] MEDS ORDERED: PATCH REMOVAL 1 EA PATCH TD PRN (21:00)
[2017-01-05] MEDS: FORMOTEROL IH SCH (22:22)
[2017-01-05] MEDS: MOMETASONE IH SCH (22:22)
--- NOTE | 2017-01-05 23:11 | GCON ---
[f rep st] CONSULTATION HEMATOLOGY/ONCOLOGY CONSULTATION NOTE REASON FOR CONSULTATION: Metastatic breast cancer with pulmonary infiltrates. HISTORY OF PRESENT ILLNESS: The patient is a very pleasant, 51-year-old female followed by Dr. Diana Low for metastatic triple negative breast cancer. The patient's oncology history dates back to May of 2014 when she was diagnosed with clinical stage IIB triple negative breast cancer in the left breast. She received neoadjuvant chemotherapy initially with 4 cycles of Taxotere, Adriamycin and Cytoxan. She developed Taxotere pneumonitis and received the last 2 cycles of chemotherapy with Adriamycin and Cytoxan alone. She then underwent bilateral mastectomies with a left axillary node dissection in November of 2014, which showed 4 of 9 nodes involved with cancer. The patient developed metastatic disease as manifested as a malignant pleural effusion and chest wall involvement. In the spring, she received 2 cycles of Xeloda. Due to progressive disease, was started on carboplatin and Gemzar. While the disease was stable, she tolerated that poorly and treatment was changed to Doxil in November. She has had 2 cycles of Doxil with the most recent treatment on 12/11/2016. The patient was tolerating Doxil well and started feeling poorly 2 days ago. She initially felt extreme fatigue. Then, yesterday , started developing increasing dyspnea. She denies any fever but reports she has had pneumonia 3 times in the past without fever. She was seen in the office this morning with an O2 saturation on room air of 75% . Heart rate was 136 and blood pressure 100/60. The patient was then seen and referred to the emergency room where a chest x-ray showed new diffuse right lung opacities that were new compared to prior CT scan in October. A CT angiogram was done, which did not show any evidence of pulmonary emboli, but there was moderate consolidation in the right upper lobe with patchy areas in the right middle lobe, right lower lobe and lingula. The findings were felt to be consistent with either pneumonia, drug reaction or possible sequelae from aspiration. She continued to have a small left pleural effusion. The patient was pancultured and started on IV Levaquin. Currently, she is on 3 L of oxygen saturating at 95%. She denies any sputum production. She has not had a significant cough. She cannot recall any aspiration events. PAST MEDICAL HISTORY: 1. Taxotere related pneumonitis. 2. History of asthma. 3. Chronic low back pain. 4. History of basal cell carcinoma. PAST SURGICAL HISTORY: 1. 2 lumbar surgeries. 2. Bilateral eye surgeries. 3. Basal cell skin cancer removal. FAMILY HISTORY: Notable for a brother with brain cancer. Two maternal uncles had colon cancer. There is no family history of breast or ovarian cancer. Her son had testicular cancer. She had a genetic panel that was negative. SOCIAL HISTORY: She has worked in accounting and payroll. She is . REVIEW OF SYSTEMS: 10-point review of systems is negative other than noted in HPI. PHYSICAL EXAMINATION: VSS: stable GENERAL: She is comfortable-appearing, sitting in bed, on oxygen. HEENT: Pupils are equal. Sclerae anicteric. Oropharynx is clear. LUNGS: Slightly decreased breath sounds at the left base and crackles in the right upper lobe. HEART: Regular rate. ABDOMEN: Soft, nontender. EXTREMITIES: No edema. LABORATORY DATA: White blood cell count 7, hematocrit 28.9, platelet count 463. Comprehensive metabolic panel is unremarkable other than albumin of 2.8. IMPRESSION: This is a 51-year-old female with metastatic triple negative breast cancer, currently receiving Doxil chemotherapy, who presents with increasing dyspnea and hypoxia with chest x-ray demonstrating infiltrate in the right upper lobe as well as patchy areas in the right lower lobe and lingula. While she has had a history of Taxotere pneumonitis, that would be much less common with Doxil. Clinically, this seems most consistent with pneumonia despite the absence of fever. The patient has been pancultured and being treated with Levaquin. At the moment, it does not appear that the small left pleural effusion is contributing to hypoxia. However, at some point, she could undergo thoracentesis if the effusion increased in size or was felt to be more contributory. We will continue to follow along with you. /[id number]/MODL MTDD
[2017-01-06] MEDS: ACETAMINOPHEN 325 MG TAB PO PRN ×2 (00:53→12:59)
[2017-01-06] MEDS: oxyCODONE IR 5 MG TAB PO PRN ×5 (03:11→21:41)
[2017-01-06 06:04] LABS: % IMMATURE GRANULYOCYTES 1.5 % (0.0-1.1); ABSOLUTE IMMATURE GRANULOCYTES 0.09 10^3/uL (0.00-0.10); ADD DIFF? NO; ADD MORPH? NO; ADD SCAN? NO; ATYPICAL LYMPHOCYTE FLAG 0 (0-99); FRAGMENT RBC FLAG 0 (0-99); HEMATOCRIT 26.1 % (38.0-47.0); HEMOGLOBIN 8.2 g/dL (12.6-16.3); LEFT SHIFT FLG 10 (0-99); LIPEMIA HEMOLYSIS FLAG 80 (0-99); MEAN CELL HEMOGLOBIN 29.4 pg (27.9-34.1); MEAN CELL HEMOGLOBIN CONCENTR. 31.4 g/dL (32.4-36.7); MEAN CELL VOLUME 93.5 fL (81.5-99.8); MEAN PLATELET VOLUME 9.4 fL (8.7-11.7); PLATELET CLUMPS FLAG 30 (0-99); PLATELET COUNT 374 10^3/uL (150-400); RED BLOOD CELL COUNT 2.79 10^6/uL (4.18-5.33); RED CELL DISTRIBUTION WIDTH 17.7 % (11.5-15.2)
[2017-01-06 06:29] LABS: ANION GAP 8 mEq/L (8-16); CARBON DIOXIDE 26 mEq/l (22-31); CHLORIDE 101 mEq/L (97-110); CREATININE 0.7 mg/dL (0.6-1.0); GLOMERULAR FILTRATION RATE > 60; GLUCOSE 101 mg/dL (70-100); POTASSIUM 4.4 mEq/L (3.5-5.2); SODIUM 135 mEq/L (134-144)
[2017-01-06] MEDS: FORMOTEROL IH SCH ×2 (08:39→20:23)
[2017-01-06] MEDS: MOMETASONE IH SCH ×2 (08:39→20:23)
[2017-01-06] MEDS: ONDANSETRON DISINTEGRATING 4 MG TAB PO PRN (09:20)
[2017-01-06] MEDS: ENOXAPARIN 40 MG/0.4 ML SYR SC SCH (10:35)
[2017-01-06] MEDS: PROCHLORPERAZINE MALEATE 5 MG TAB PO PRN (13:12)
--- NOTE | 2017-01-06 13:34 | SOAPPROG ---
SOAP Progress Note Assessment/Plan: Assessment: * Infiltrate/hypoxia with metastatic triple negative breast cancer-patient on levoquin. Not clinically improved today, but does not appear worse. Low grade temp last night of 37.3. CXR today unchanged, but raises consideration of lymphangitic spread. Onset of symptoms seems fast for this. * Malignant left pleural effusion-stable. Does not appear large enough to be comprising resp status. Plan: * Continue close observation on current antibiotics. If not improved in next few days, consider change in abx and/or bronch. * Follow effusion, no thoracentesis now. 01/06/17 13:30 01/06/17 13:35 Subjective: she is concerned that she is not feeling better. She does not feel worse. Objective: Vital Signs Temp Pulse Resp BP Pulse Ox 36.9 C 87 16 99/66 L 98 01/06/17 11:16 01/06/17 11:16 01/06/17 11:16 01/06/17 11:16 01/06/17 11:16 Microbiology 01/05/17 14:56 Respiratory Panel (PCR) - Final Nasal, Sinus - Swab No Organism Detected Laboratory Results 01/06/17 05:50 01/06/17 05:50 01/05/17 01/06/17 01/07/17 05:59 05:59 05:59 Intake Total 400 Balance 400 Physical Exam - Physical Exam General Appearance: alert, other (fatigued and anxious appearing) Neck: supple Respiratory: other (decreased breath sounds at the left base, crackles in right apex.) Cardiac/Chest: regular rate, rhythm Abdomen: non-tender, soft Skin: other (chest with purpuric lesions over left reconstructoin consistent with local recurrence) Extremities: No pedal edema Neuro/Psych: alert, oriented x 3 ICD10 Worksheet Patient Problems: Problems Problem Status Onset Dyspnea Acute Lung infiltrate Acute Metastatic breast cancer Acute
--- NOTE | 2017-01-06 16:40 | ASMTCMCOM ---
CM Note CM Note Notes: Pt admitted with hypoxia, pulmonary infiltrates. Hx breast CA and pleural effusions. Has had 2 of 3 chemo treatments. Currently on IV ABX and may need thoracentesis. , lives with her . CM will follow for any d/c needs. Date Signed: 01/06/2017 04:39 PM Electronically Signed By:YANNICK Reyes
[2017-01-06] MEDS: PROCHLORPERAZINE MALEATE 10 MG TAB PO PRN (17:09)
--- NOTE | 2017-01-06 17:35 | HOSPPROG ---
Hospitalist Progress Note Assessment/Plan: DIAGNOSES: -acute dyspnea and hypoxemia, acute respiratory failure, with right upper lobe infiltrates and cough, as well as some recurrent left pleural effusion. Because of her dyspnea is most likely related to her right upper lobe infiltrates and I believe that this likely is infectious pneumonia given the focal nature of the radiologic abnormality. However without fever or white count elevation would have to be certain that this is not related to her chemotherapy. -suspect acute infectious pneumonia -recurrent left pleural effusion which is malignant, after her recent 5th thoracentesis -chronic slow healing wound under her left breast implant; she has been receiving care at the outpatient wound care clinic for this wound -metastatic cancer of breast with disease in the skeleton and pleural effusions , on new chemotherapy PLANS: -continue empiric antibiotics at this time -if she does not seem to be making any progress we will consult Infectious Disease and pulmonology tomorrow or shortly -at this point there still does not appear to be in need to consider thoracentesis acutely, though anticipate somewhere down the road that will be necessary -will ask wound Care to see her left breast implant wound and will review with Dr. Cota SUBJECTIVE: Feels slightly less dyspneic with exertion today Otherwise feels pretty much the same Some nausea but is getting food in OBJECTIVE Vitals reviewed: T-max 37.9 degrees overnight, otherwise stable exam: Alert, oriented skin warm dry color ok resps not labored lungs few scattered rhonchi no wheezes The wound at the inferior margin of her left breast implant has some weeping of the thick yellowish material but there is no cellulitis and no abscess heart regular abd soft nondistended nontender, bowel sounds present limbs warm, no edema iv site ok Objective: Vital Signs Temp Pulse Resp BP Pulse Ox 36.7 C 83 16 95/68 L 96 01/06/17 15:19 01/06/17 15:19 01/06/17 15:19 01/06/17 15:19 01/06/17 15:19 Microbiology 01/05/17 14:56 Respiratory Panel (PCR) - Final Nasal, Sinus - Swab No Organism Detected Laboratory Results 01/06/17 05:50 01/06/17 05:50 01/05/17 01/06/17 01/07/17 06:59 06:59 06:59 Intake Total 400 450 Balance 400 450 ICD10 Worksheet Patient Problems: Problems Problem Status Onset Dyspnea Acute Lung infiltrate Acute Metastatic breast cancer Acute
[2017-01-06] MEDS: SENNOSIDES 1 TAB PO PRN (21:41)
[2017-01-07] MEDS: oxyCODONE IR 5 MG TAB PO PRN ×4 (03:56→19:36)
[2017-01-07 04:48] LABS: % IMMATURE GRANULYOCYTES 1.7 % (0.0-1.1); ABSOLUTE IMMATURE GRANULOCYTES 0.09 10^3/uL (0.00-0.10); ADD DIFF? NO; ADD MORPH? NO; ADD SCAN? NO; ATYPICAL LYMPHOCYTE FLAG 40 (0-99); FRAGMENT RBC FLAG 10 (0-99); HEMATOCRIT 25.2 % (38.0-47.0); HEMOGLOBIN 8.1 g/dL (12.6-16.3); LEFT SHIFT FLG 20 (0-99); LIPEMIA HEMOLYSIS FLAG 80 (0-99); MEAN CELL HEMOGLOBIN CONCENTR. 32.1 g/dL (32.4-36.7); MEAN CELL VOLUME 93.3 fL (81.5-99.8); MEAN PLATELET VOLUME 9.2 fL (8.7-11.7); PLATELET CLUMPS FLAG 0 (0-99); PLATELET COUNT 336 10^3/uL (150-400); RED CELL DISTRIBUTION WIDTH 17.4 % (11.5-15.2)
[2017-01-07 05:08] LABS: ANION GAP 9 mEq/L (8-16); CALCIUM 8.7 mg/dL (8.5-10.4); CARBON DIOXIDE 27 mEq/l (22-31); CHLORIDE 98 mEq/L (97-110); CREATININE 0.6 mg/dL (0.6-1.0); GLOMERULAR FILTRATION RATE > 60; GLUCOSE 97 mg/dL (70-100); POTASSIUM 4.4 mEq/L (3.5-5.2); SODIUM 134 mEq/L (134-144)
[2017-01-07] MEDS: PROCHLORPERAZINE MALEATE 10 MG TAB PO PRN ×2 (08:30→17:27)
[2017-01-07] MEDS: ENOXAPARIN 40 MG/0.4 ML SYR SC SCH (08:40)
[2017-01-07] MEDS: PROCHLORPERAZINE MALEATE 5 MG TAB PO PRN (08:40)
[2017-01-07] MEDS: MOMETASONE IH SCH ×2 (08:40→21:34)
[2017-01-07] MEDS: FORMOTEROL IH SCH ×2 (08:40→21:34)
--- NOTE | 2017-01-07 09:01 | WOCRNPDOC ---
WOCRN Advanced Assessment Note - Skin Integrity Problem, Advanced Assess Left Breast Dressing Type: Mepilex Transfer Dressing Description: Clean/Dry, Intact Exudate Amount: None Anita Wound Tissue: Erythema Wound Bed Constitution: Dried Exudate, Adhered Slough Site Measurement - Head-to-Toe Length X Width X Depth (cm): 4x10x0 Skin Integrity Problem Comment: Scattered dried wounds along medial inferior margin of breast. All dried with surrounding erythema. Wound RN visualized photo of wound in outpatient chart from 12/17 and wound has deteriorated since then. Discussed plan with patient and . They have the hydrogel sheets they were using outpatient but have not used them in the last few days. We discussed need to keep wounds moist for healing purposes and they were amenable to trying hydrogel sheets again. Wound care will round again next week. Reported to ETHAN Rodriguez.
--- NOTE | 2017-01-07 10:42 | HOSPPROG ---
Hospitalist Progress Note Assessment/Plan: DIAGNOSES: -acute dyspnea and hypoxemia, acute respiratory failure, with right upper lobe infiltrates and cough, as well as some recurrent left pleural effusion. Because of her dyspnea is most likely related to her right upper lobe infiltrates and I believe that this likely is infectious pneumonia given the focal nature of the radiologic abnormality. However without fever or white count elevation would have to be certain that this is not related to her chemotherapy. -suspect acute infectious pneumonia -recurrent left pleural effusion which is malignant, after her recent 5th thoracentesis -chronic slow healing wound under her left breast implant; she has been receiving care at the outpatient wound care clinic for this wound -metastatic cancer of breast with disease in the skeleton and pleural effusions , on new chemotherapy Overall she continues some improvement with resolution of fevers and decrease in malaise and other general symptoms, but remains fairly dyspneic PLANS: -continue empiric antibiotics at this time -repeat chest x-ray tomorrow morning -consider thoracentesis if her dyspnea is not improving or if the chest x-ray is worsening in that regard -if she does not continue to make progress we will consult Infectious Disease and pulmonology -will ask wound Care to see her left breast implant wound and will review with Dr. Cota SUBJECTIVE: Still fairly dyspneic with any exertion but not short of breath at rest, using 3 -3 0.5 L oxygen Otherwise has less malaise, better appetite, and overall sense of well-being slightly improved No chills or sweats slept better last night and had no fever OBJECTIVE Vitals reviewed: No fever 36 hours now, otherwise stable exam: Alert, oriented skin warm dry color ok resps not labored lungs few scattered rhonchi no wheezes The wound at the inferior margin of her left breast implant is unchanged from yesterday abd soft nondistended nontender, bowel sounds present limbs warm, no edema iv site ok Objective: Vital Signs Temp Pulse Resp BP Pulse Ox 36.8 C 81 17 96/64 L 97 01/07/17 09:09 01/07/17 09:09 01/07/17 09:09 01/07/17 09:09 01/07/17 09:09 Laboratory Results 01/07/17 04:40 01/07/17 04:40 01/06/17 01/07/17 01/08/17 06:59 06:59 06:59 Intake Total 400 650 Balance 400 650 ICD10 Worksheet Patient Problems: Problems Problem Status Onset Dyspnea Acute Lung infiltrate Acute Metastatic breast cancer Acute
--- NOTE | 2017-01-07 12:36 | SOAPPROG ---
SOAP Progress Note Assessment/Plan: Assessment: * Infiltrate/hypoxia-Clinically improved on levoquin. Most consistent with pneumonia. Still with O2 needs. CXR tomorrow. * Malignant left pleural effusion-? a bit larger today on exam. CXR tomorrow. May need thoracentesis at some point to help with oxygenation. * Metastatic triple negative breast cancer-on Doxil. Unclear if she has responded after two cycles. Plan: * Continue close observation on current antibiotics. * Follow effusion, no thoracentesis now. Subjective: feels more energetic. Less SOB Objective: Vital Signs Temp Pulse Resp BP Pulse Ox 36.8 C 81 17 96/64 L 97 01/07/17 09:09 01/07/17 09:09 01/07/17 09:09 01/07/17 09:09 01/07/17 09:09 Laboratory Results 01/07/17 04:40 01/07/17 04:40 01/06/17 01/07/17 01/08/17 05:59 05:59 05:59 Intake Total 400 650 Balance 400 650 Physical Exam - Physical Exam General Appearance: alert, other (fatigued appearing) Respiratory: other (right lung clear. Left lung with decreased breath sounds about one quarter the way up.) Abdomen: non-tender, soft ICD10 Worksheet Patient Problems: Problems Problem Status Onset Dyspnea Acute Lung infiltrate Acute Metastatic breast cancer Acute
--- NOTE | 2017-01-07 15:31 | GCON ---
[f rep st] CONSULTATION DATE OF CONSULTATION: 01/07/2017 REQUESTING PHYSICIAN: Dr. Renzo Odom. CHIEF COMPLAINT: Breast wound. HISTORY OF PRESENT ILLNESS: 51-year-old woman who was diagnosed with locally advanced breast cancer in 2014. She underwent chemotherapy. She had a recurrence and is undergoing additional therapy. She has lesions over her left breast. [facility] She was recently admitted for respiratory issues. PAST MEDICAL HISTORY: Breast cancer, asthma, back pain, pneumonia. PAST SURGICAL HISTORY: L4-5 fusion, eye surgery, bilateral mastectomies with reconstruction. MEDICATIONS: Per [employer]. ALLERGIES: No known drug allergies. SOCIAL HISTORY: She is with 2 children. She denies tobacco or illegal drug use. FAMILY HISTORY: Brother with brain cancer. Uncle had colon cancer. REVIEW OF SYSTEMS: Significant for chronic back pain, discomfort over the wounds on her breast which are causing more itching rather than pain currently, some shortness of breath. PHYSICAL EXAMINATION: GENERAL: Pleasant, well-nourished, well-groomed woman. HEENT: Normocephalic. No gross hearing deficits. Mucous membranes moist. Pupils equal and round. No scleral icterus. BREAST: Crusted lesions over the left breast exiting into the inframammary fold. The area in the inframammary fold actually appears improved from when I last saw her. The breasts are firm. IMPRESSION AND PLAN: A 51 year old with locally advanced breast cancer recurrence. We have placed a hydrogel Radiogel dressing. I will see her tomorrow. If she likes this then I will try to order this for her as an outpatient. /[id number]/MODL MTDD
[2017-01-07] MEDS: SENNOSIDES 1 TAB PO PRN (19:41)
[2017-01-08] MEDS: oxyCODONE IR 5 MG TAB PO PRN ×4 (01:02→19:01)
[2017-01-08] MEDS: ENOXAPARIN 40 MG/0.4 ML SYR SC SCH (08:10)
[2017-01-08] MEDS: MOMETASONE IH SCH ×2 (09:19→22:00)
[2017-01-08] MEDS: FORMOTEROL IH SCH ×2 (09:19→22:00)
[2017-01-08] MEDS ORDERED: ALBUTEROL 3 ML DEYVIAL IH PRN (09:33)
[2017-01-08] MEDS: PROCHLORPERAZINE MALEATE 10 MG TAB PO PRN (11:21)
--- NOTE | 2017-01-08 18:20 | HOSPPROG ---
Hospitalist Progress Note Assessment/Plan: DIAGNOSES: -acute dyspnea and hypoxemia, acute respiratory failure, with right upper lobe infiltrates and cough, as well as some recurrent left pleural effusion. Because of her dyspnea is most likely related to her right upper lobe infiltrates and I believe that this likely is infectious pneumonia given the focal nature of the radiologic abnormality. However without fever or white count elevation would have to be certain that this is not related to her chemotherapy. -suspect acute infectious pneumonia -recurrent left pleural effusion which is malignant, after her recent 5th thoracentesis -chronic slow healing wound under her left breast implant; she has been receiving care at the outpatient wound care clinic for this wound -metastatic cancer of breast with disease in the skeleton and pleural effusions , on new chemotherapy Continued improvement at this time both with symptomatic improvement in malaise and dyspnea, as well as improvement in her chest x-ray infiltrates. Her pleural effusion is no worse. At this time I think we can continue on with the current course of therapy and she gets stronger should be able to hopefully get home in 1-2 days or so PLANS: -continue empiric antibiotics at this time -repeat chest x-ray tomorrow morning -consider thoracentesis if her dyspnea is not improving or if the chest x-ray is worsening in that regard -if she does not continue to make progress we will consult Infectious Disease and pulmonology -will ask wound Care to see her left breast implant wound and will review with Dr. Cota SUBJECTIVE: Feels little better overall today and less exertional dyspnea. Eating a little bit better Oxygen turned down to 2 L OBJECTIVE Vitals reviewed: No fever otherwise stable exam: Alert, oriented skin warm dry color ok resps not labored lungs few scattered rhonchi no wheezes The wound at the inferior margin of her left breast implant is unchanged from yesterday abd soft nondistended nontender, bowel sounds present limbs warm, no edema iv site ok Chest x-ray two view, my personal review of images: Notable improvement in the right upper lobe infiltrates, no change in left pleural effusion Objective: Vital Signs Temp Pulse Resp BP Pulse Ox 36.8 C 77 16 93/58 L 94 01/08/17 15:21 01/08/17 15:21 01/08/17 15:21 01/08/17 15:21 01/08/17 15:21 Laboratory Results 01/07/17 04:40 01/07/17 04:40 01/07/17 01/08/17 01/09/17 06:59 06:59 06:59 Intake Total 650 1850 150 Balance 650 1850 150 ICD10 Worksheet Patient Problems: Problems Problem Status Onset Dyspnea Acute Lung infiltrate Acute Metastatic breast cancer Acute
--- NOTE | 2017-01-08 19:47 | SOAPPROG ---
SOAP Progress Note Assessment/Plan: Assessment: * Pneumonia: improving on abx without other intervention. * Left pleural effusion: fairly small, stable. Doubt it needs tapped. * Metastatic triple negative breast cancer: on third-line therapy, s/p 2 cycles of Doxil. No obvious evidence of progression on CTA, but have asked Dr. Bennett to compare with most recent [facility] study. Chest wall disease +/- changed, tumor markers stable. She has tolerated Doxil fairly poorly in terms of QOL, primarily fatigue. Lengthy discussion of options. She has fairly low volume disease with chest wall disease being the most symptomatic. Discussed allowing time to recover from PNA and regain energy, etc. before discussion resumption of tx. Meanwhile, CT A/P while she is in to complete restaging. * Chest wall disease/wound: Dr. Cota continuing to see as an inpatient. Spent >40 minutes with Lulú and , Karthikeyan. 01/08/17 19:51 Subjective: S: VEGAS has improved, able to walk to/from bathroom more easily today. Chest wall pain well-controlled with oxy IR (fentanyl d/c). She had palmar desquamation with most recent cycle Doxil. Increased fatigue and fairly consistent nausea since starting Doxil. O: VS reviewed, AF, on 2L O2. Gen: fatigued, A&O. Lungs: reduced BS left base. Skin: tight skin over left implant with areas of crusting medially, laterally. Dressing inferiorly (I did not take down). Lymph: no clear left axillary LAD, remains less tender than prior to initiation of chemo (first-line). Abd: soft, NT. Microbiology 01/05/17 14:56 Nasal, Sinus - Swab Respiratory Panel (PCR) - Final No Organism Detected Laboratory Tests 01/07/17 01/07/17 04:40 04:40 WBC 5.38 Hgb 8.1 L Plt Count 336 Potassium 4.4 Creatinine 0.6 Objective: Vital Signs Temp Pulse Resp BP Pulse Ox 36.8 C 77 16 93/58 L 94 01/08/17 15:21 01/08/17 15:21 01/08/17 15:21 01/08/17 15:21 01/08/17 15:21 Laboratory Results 01/07/17 04:40 01/07/17 04:40 01/07/17 01/08/17 01/09/17 05:59 05:59 05:59 Intake Total 650 1850 150 Balance 650 1850 150 ICD10 Worksheet Patient Problems: Problems Problem Status Onset Dyspnea Acute Lung infiltrate Acute Metastatic breast cancer Acute
[2017-01-08] MEDS: SENNOSIDES 1 TAB PO PRN (22:06)
[2017-01-09] MEDS: oxyCODONE IR 5 MG TAB PO PRN ×4 (01:09→20:10)
[2017-01-09] MEDS: FORMOTEROL IH SCH ×2 (09:01→23:37)
[2017-01-09] MEDS: MOMETASONE IH SCH ×2 (09:01→23:37)
[2017-01-09] MEDS: ENOXAPARIN 40 MG/0.4 ML SYR SC SCH (09:26)
[2017-01-09] MEDS: PROCHLORPERAZINE MALEATE 10 MG TAB PO PRN ×2 (09:27→14:53)
--- NOTE | 2017-01-09 11:23 | SOAPPROG ---
SOAP Progress Note Assessment/Plan: E&M for breast cancer * Pneumonia: improving on abx without other intervention. Hopefully home soon. * Left pleural effusion: Unlikely causing much clinical symptoms. Will hold off tap. * Metastatic triple negative breast cancer: on third-line therapy, s/p 2 cycles of Doxil. No obvious evidence of progression on CTA. Dr. Bennett to compare with most recent [facility] study. Chest wall disease +/- changed, tumor markers stable. She has tolerated Doxil fairly poorly in terms of QOL, primarily fatigue. Patient to f/u with DR. Low to discuss options. Needs to recover from PNA and regain energy, etc. before resumption of tx. CT A/P while she is in to complete restaging is complete but report pending. * Chest wall disease/wound: Dr. Cota continuing to see as an inpatient. Subjective: Feeling better although still tired. with patient. Denies SOB off oxygen. Objective: Vital Signs Temp Pulse Resp BP Pulse Ox 36.7 C 74 14 95/59 L 96 01/09/17 07:55 01/09/17 07:55 01/09/17 07:55 01/09/17 07:55 01/09/17 07:55 Laboratory Results 01/07/17 04:40 01/07/17 04:40 01/08/17 01/09/17 01/10/17 05:59 05:59 05:59 Intake Total 1850 650 Output Total 500 Balance 1850 150 Physical Exam - Physical Exam General Appearance: no apparent distress Respiratory: decreased breath sounds (left base) Cardiac/Chest: regular rate, rhythm ICD10 Worksheet Patient Problems: Problems Problem Status Onset Dyspnea Acute Lung infiltrate Acute Metastatic breast cancer Acute Pneumonia Acute
[2017-01-09] MEDS ORDERED: IOPAMIDOL (ISOVUE-300) 100 ML BTL ONE (12:49)
--- NOTE | 2017-01-09 17:17 | ASMTCMCOM ---
CM Note CM Note Notes: Pt's PNA continues to improve on ABX. It is unclear if pt will have DC needs. C/M to follow. Date Signed: 01/09/2017 05:16 PM Electronically Signed By:Syeda Owen LCSW
--- NOTE | 2017-01-09 18:05 | HOSPPROG ---
Hospitalist Progress Note Assessment/Plan: DIAGNOSES: -acute dyspnea and hypoxemia, acute respiratory failure, with right upper lobe infiltrates and cough, as well as some recurrent left pleural effusion. Because of her dyspnea is most likely related to her right upper lobe infiltrates and I believe that this likely is infectious pneumonia given the focal nature of the radiologic abnormality. However without fever or white count elevation would have to be certain that this is not related to her chemotherapy. -suspect acute infectious pneumonia -recurrent left pleural effusion which is malignant, after her recent 5th thoracentesis -chronic slow healing wound under her left breast implant; she has been receiving care at the outpatient wound care clinic for this wound -metastatic cancer of breast with disease in the skeleton and pleural effusions , on new chemotherapy PLANS: -continue empiric antibiotics at this time -again would not consider thoracentesis unless her dyspnea is not improving but so far she has made daily progress -if she does not continue to make progress we will consult Infectious Disease and pulmonology -continue wound care SUBJECTIVE: Feels a little better overall today and less exertional dyspnea but overall remains feeling too weak to trying go home today. Eating a little bit better Oxygen remains at 2 L OBJECTIVE Vitals reviewed: No fever otherwise stable exam: Alert, oriented skin warm dry color ok resps not labored lungs few scattered rhonchi no wheezes The wound at the inferior margin of her left breast implant is unchanged from yesterday abd soft nondistended nontender, bowel sounds present limbs warm, no edema iv site ok CT abdomen: no sign of any disease progression, in fact there seems to be some possible decrease in L pleural effusion but is compared to a CT chest Objective: Vital Signs Temp Pulse Resp BP Pulse Ox 36.7 C 81 15 106/72 89 L 01/09/17 16:00 01/09/17 16:00 01/09/17 16:00 01/09/17 16:00 01/09/17 16:00 Laboratory Results 01/07/17 04:40 01/07/17 04:40 01/08/17 01/09/17 01/10/17 06:59 06:59 06:59 Intake Total 1850 650 Output Total 500 Balance 1850 150 ICD10 Worksheet Patient Problems: Problems Problem Status Onset Dyspnea Acute Lung infiltrate Acute Metastatic breast cancer Acute Pneumonia Acute
[2017-01-10] MEDS: oxyCODONE IR 5 MG TAB PO PRN ×3 (02:45→12:13)
[2017-01-10 08:01] VITALS: BP 99/59; TEMP 98.4
[2017-01-10] MEDS: PROCHLORPERAZINE MALEATE 10 MG TAB PO PRN (08:06)
[2017-01-10] MEDS: ENOXAPARIN 40 MG/0.4 ML SYR SC SCH (09:57)
[2017-01-10] MEDS: MOMETASONE IH SCH (09:57)
[2017-01-10] MEDS: FORMOTEROL IH SCH (09:57)
--- NOTE | 2017-01-10 14:08 | SOAPPROG ---
SOAP Progress Note Assessment/Plan: E&M for breast cancer * Pneumonia: improving on abx without other intervention. Ok to go home per oncology. * Left pleural effusion: Unlikely causing much clinical symptoms. Will hold off tap. * Metastatic triple negative breast cancer: on third-line therapy, s/p 2 cycles of Doxil. No obvious evidence of progression on CTA. Dr. Bennett to compare with most recent [facility] study. Chest wall disease +/- changed, tumor markers stable. She has tolerated Doxil fairly poorly in terms of QOL, primarily fatigue. Patient to f/u with DR. Low to discuss options. Needs to recover from PNA and regain energy, etc. before resumption of tx. CT A/P while she was in to complete restaging is shows stable disease although with some pneumonitis. * Chest wall disease/wound: Dr. Cota follows her Subjective: Tired but denies pain or trouble bleeding Objective: Vital Signs Temp Pulse Resp BP Pulse Ox 36.9 C 68 16 99/59 L 94 01/10/17 08:00 01/10/17 10:03 01/10/17 10:03 01/10/17 08:00 01/10/17 10:03 Laboratory Results 01/07/17 04:40 01/07/17 04:40 01/09/17 01/10/17 01/11/17 05:59 05:59 05:59 Intake Total 650 800 Output Total [address] Scan of the Abdomen and Pelvis (With Contrast) Impression: 1. Decrease in mild to moderate left pleural effusion with adjacent compressive atelectatic change. 2. Development of groundglass attenuation at the lung bases that could be secondary to some dependent edema or pneumonitis . 3. Sclerotic lesion along the left inferior aspect of the sternum visualized. No new osseous lesions seen. 4. 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 Dictated By: Dimitry Farah MD Physical Exam - Physical Exam General Appearance: no apparent distress Respiratory: decreased breath sounds (bases L>R) Cardiac/Chest: regular rate, rhythm ICD10 Worksheet Patient Problems: Problems Problem Status Onset Dyspnea Acute Lung infiltrate Acute Metastatic breast cancer Acute Pneumonia Acute
[2017-01-10 14:24] VITALS: PULSE 85; RESP 18; O2SAT 86
--- NOTE | 2017-01-10 14:43 | GDS ---
[f rep st] DISCHARGE SUMMARY KNOWN ACUTE DIAGNOSES: 1. Right upper lobe pneumonia, presumed of infectious origin. 2. Stage IV breast carcinoma, status post bilateral mastectomies. 3. Acute asthma. 4. Systemic inflammatory response syndrome with tachypnea, tachycardia, hypoxemia. CONSULTATIONS: Oncology, and Surgery with Dr. Bela Cota. PROCEDURES: CTA of the chest, showing an extensive pneumonia with increasing size of the mediastinum and hilar lymph nodes, as well as right axillary nodes along with a left-sided pleural effusion. Th e bony structures appeared stable. There was no evidence of a pulmonary embolus. Most notably there was moderate new consolidation and pneumonitis developed in the right upper lobe, compared to previo us studies. CT scan of the abdomen, showing a decreasing size of the left pleural effusion. Sclerot ic lesions were noted in the left inferior aspect of the sternum without new osseous lesions seen. HOSPITAL COURSE: A 51-year-old female who presents with acute shortness of breath, hypoxemia and tac hypnea along with respiratory failure. She was placed on oxygen, antibiotics, bronchodilators and si gnificantly improved. CT scan of the chest showed that she had some progression of her known breast carcinoma into the mediastinum, persistence of her left pleural effusion, and now had new hypoxemia a nd consolidation in her right upper lobe. The latter was felt to be secondary to acute infectious pr ocess, but a post obstructive pneumonitis could not be ruled out. She steadily improved in her respi ratory status during hospitalization, but still required oxygen at rest and with exertion, and will b e discharged on oxygen. DISCHARGE MEDICATIONS: Medications will be the same as her admission medications. No changes will b e made. She received a full course of levofloxacin 750 mg for 5 days, and thus will not be discharge d on antibiotics. Medications as follows: Compazine 5 mg three times daily, oxycodone IR 10 mg q.4 hours p.r.n. pain, Dulera 200/5 mcg inhaler; it is a 2 g inhaler and she is to take 1 inhalation twice daily, Lidoderm 5 % patch to be used daily, ibuprofen 600 mg q.4 hours p.r.n. pain. PLAN: The patient is discharged to home. Oxygen will be ordered for her care, and the oxygen durati on will be until her followup with her PCP and recheck. It is expected that she will not need long-t erm oxygen. Her primary care physician is Dr. Megan Kee, and she will be following up with Dr. Constanza Low within the next 5 days. Matters to be addressed at the first followup are recheck of her oxygenation at rest and with exertio n to ascertain if she continues to need oxygen, and also ascertain her pulmonary status and assure th at she has continued to improve. /[id number]/MODL
--- NOTE | 2017-01-10 14:59 | PDHOMEO2F ---
Home Oxygen Face to Face Home Orders: I certify that a physician or a nurse practitioner or physician's field technical assistant has had a [id number] encounter with this patient on the date of this order due to the diagnosis listed, which relates to the primary reason the patient requires home oxygen. Alternative treatments have been tried, or considered, and deemed ineffective. It is anticipated that supplemental oxygen will result in improvement with treatment. Home oxygen qualifying diagnosis: pneumonia Home oxygen secondary diagnosis: breast Cancer SpO2 on room air (%): 85 Frequency of home oxygen needed: continuous Home oxygen liters per minute: 2-3 liters/minute Home oxygen delivery device: nasal cannula Concentrator: Yes E-tanks for mobility and back up: Yes If ordering portable O2, is the patient mobile in the home?: Yes I certify that, based on these findings, the home oxygen is medically necessary for this patient for the following length of time. Length of time home oxygen needed: 1 month
--- NOTE | 2017-01-10 16:49 | ASDISCHSUM ---
Discharge Information Plan Status:Home with DME or Oxygen Medically Cleared to Leave:01/10/2017 Discharge Date:01/10/2017 CM D/C Disposition:Home, Routine, Self-Care ADT D/C Disposition:Home, Routine, Self-Care Projected Discharge Date:01/10/2017 Transportation at D/C:Family Discharge Delay Reason: Follow-Up Date:01/10/2017 Discharge Slot: Final Diagnosis: Placement Information Patient Contact Information Contact Name:REESE Relationship: Address:[address] Work Phone: City:[place] Alternate Phone: State/Zip Code:[place] [address] Email: Financial Information Financial Class:HMO and PPO Plans Primary Plan Desc:[employer] AMANDA ENGLE Primary Plan Number:[id number] Secondary Plan Desc: Secondary Plan Number: Assessment Information [facility] CM Progress Note CM Note CM Note Notes: Pt admitted with hypoxia, pulmonary infiltrates. Hx breast CA and pleural effusions. Has had 2 of 3 chemo treatments. Currently on IV ABX and may need thoracentesis. , lives with her . CM will follow for any d/c needs. Date Signed: 01/06/2017 04:39 PM Electronically Signed By:YANNICK Reyes [facility] CM Progress Note CM Note CM Note Notes: Pt's PNA continues to improve on ABX. It is unclear if pt will have DC needs. C/M to follow. Date Signed: 01/09/2017 05:16 PM Electronically Signed By:Syeda Owen LCSW [facility] CM Progress Note CM Note CM Note Notes: Pt is discharging home today with no CM needs. Off IV ABX. Will need home O2 which Respiratory Therapy will arrange. Date Signed: 01/10/2017 04:48 PM Electronically Signed By:YANNICK Reyes Intervention Information
== END 2017-01-10 17:27 | disposition home or self-care (01) | DRG 193 ==
LOC: F1N 13:11
PROVIDERS: ADMIT Internal Medicine; ATTEND Internal Medicine Pulmonary Disease
DX: J18.0 Bronchopneumonia, unspecified organism (principal); J96.01 Acute respiratory failure with hypoxia; C78.2 Secondary malignant neoplasm of pleura; C79.51 Secondary malignant neoplasm of bone; L98.491 Non-pressure chronic ulcer of skin of other sites limited to breakdown of skin; C79.2 Secondary malignant neoplasm of skin; Z85.3 Personal history of malignant neoplasm of breast; Z90.13 Acquired absence of bilateral breasts and nipples; J45.909 Unspecified asthma, uncomplicated; Z98.1 Arthrodesis status
CPT/HCPCS: J1642; J1650; J1956; Q9967

== ENCOUNTER → 2017-01-27 | Outpatient (CLI) | payer OTHER | LOC: FIMAGING 11:48 | PROVIDERS: ATTEND Internal Medicine Hematology & Oncology | DX: J18.9 Pneumonia, unspecified organism (principal); J90 Pleural effusion, not elsewhere classified; C50.919 Malignant neoplasm of unspecified site of unspecified female breast ==

== ENCOUNTER 2017-03-10 16:22 | Inpatient (IN) | payer OTHER ==
[2017-03-10] MEDS ORDERED: ONDANSETRON 4 MG/2 ML VIAL IVP PRN (16:37)
[2017-03-10] MEDS ORDERED: ONDANSETRON DISINTEGRATING 4 MG TAB PO PRN (16:37)
[2017-03-10] MEDS ORDERED: LORazepam 0.5 MG TAB PO PRN (16:37)
--- NOTE | 2017-03-10 16:48 | PDGENHP ---
History and Physical - Chief Complaint left breast erosion - History of Present Illness 52 female with h/o breast cancer presents with breast erosion and extruding implant. Diagnosed in 05/2014 initially, had chemo and b/l mastectomy with radical LN dissection in 11/2014 followed by radiation in 03/2015. In 05/2016, she developed a pleural effusion and cytology was positive for recurrent breast cancer. She went back on chemo and has developed a rash on her left breast, which has not been healing. The implant is now extruding and she thinks the radiation damaged her skin. She resumed chemotherapy in 07/2016 and has failed 2 different chemo regimens, is now in a clinical trial. She is 2 weeks on chemo, 1 week off (Eribulin). She is on a fentanyl patch for pain, along with oxycodone, with poor pain control, 09/19 currently. She denies fevers or chills. She is not sure if there is pus, but she notes redness and ulceration of her left breast. No CP or SOB. She is directly admitted from the wound clinic after being evaluated by general surgery, who contacted plastic surgery, for consultation. History Information - Allergies/Home Medication List Allergies/Adverse Reactions: No Known Allergies Allergy (Verified 01/05/17 09:20) Home Medications: Mometasone/Formoterol [Dulera 200 Mcg/5 Mcg Inhaler] 2 gm IH BID 07/02/16 [Last Taken 03/10/17] Prochlorperazine Maleate [Compazine 5mg (*)] 5 mg PO TIDMEAL PRN 07/02/16 [Last Taken 03/10/17] oxyCODONE IR [Oxycodone Ir (*)] 10 mg PO Q4HRS PRN 07/02/16 [Last Taken 03/10/17 ] Ibuprofen [Motrin (*)] 600 mg PO Q4HRS PRN 01/05/17 [Last Taken 03/10/17] fentaNYL [Duragesic 50 MCG Patch (*)] 50 mcg TD Q72H 03/10/17 [Last Taken ] I have personally reviewed and updated: family history, medical history, social history, surgical history - Past Medical History asthma - Surgical History Reports: mastectomy Additional surgical history: back surgery x2 - Family History Additional family history: dad had a stroke. brother had a stroke. mom with hypertension - Social History Smoking Status: Never smoked Alcohol Use: Rarely Drug Use: Marijuana Additional social history: Lives with her . Review of Systems Review of Systems: ROS: 10pt was reviewed & negative except for what was stated in HPI & below Physical Exam Physical Exam: Constitutional: no apparent distress Eyes: PERRL Ears, Nose, Mouth, Throat: moist mucous membranes Cardiovascular: regular rate and rhythym, no murmur, rub, or gallop Respiratory: no respiratory distress, clear to auscultation Gastrointestinal: normoactive bowel sounds, soft, non-tender abdomen Skin: warm, other (left breast with ulcerations and implant extruding from inferior aspect of breast. +associated erythema and inflammatory changes) Musculoskeletal: full muscle strength Neurologic: AAOx3 Psychiatric: interacting appropriately Lab Data & Imaging Review 03/10/17 18:10 03/10/17 18:10 Assessment & Plan Assessment: Metastatic breast cancer with breast erosion / extruding implant - Likely secondary to radiation. Ulcerations present, but no purulence and not obviously infected. This is a surgical issue. -send cbc, cmp, lactate, BCx's, PCT -await labs and will decide on atbx coverage -plastic surgery is consulted and will see patient tonight, will make NPO after midnight -oncology aware of admission, will see tomorrow -note pt became tearful and distraught over thought of IV access, which has been very problematic for her in past. Will draw 1 BCx from port and if fevers or labs concerning for infection, consider drawing 2nd BCx from peripheral site , but for pt's comfort will defer 2nd BCx for now Asthma - stable, cont home Dulera once med rec completed Full code Dispo - inpt, suspect will require >48 hrs hospitalization for ongoing management of right breast implant extrusion
[2017-03-10] MEDS: ACETAMINOPHEN 325 MG TAB PO PRN (18:09)
[2017-03-10] MEDS: oxyCODONE IR 5 MG TAB PO PRN ×2 (18:10→21:40)
[2017-03-10 18:43] LABS: ADD DIFF? YES; ADD MORPH? NO; ADD SCAN? NO; ATYPICAL LYMPHOCYTE FLAG 0 (0-99); FRAGMENT RBC FLAG 20 (0-99); HEMATOCRIT 29.8 % (38.0-47.0); HEMOGLOBIN 9.8 g/dL (12.6-16.3); LEFT SHIFT FLG 80 (0-99); LIPEMIA HEMOLYSIS FLAG 80 (0-99); MEAN CELL HEMOGLOBIN 28.9 pg (27.9-34.1); MEAN CELL HEMOGLOBIN CONCENTR. 32.9 g/dL (32.4-36.7); MEAN CELL VOLUME 87.9 fL (81.5-99.8); MEAN PLATELET VOLUME 9.6 fL (8.7-11.7); PLATELET CLUMPS FLAG 50 (0-99); PLATELET COUNT 259 10^3/uL (150-400); RED BLOOD CELL COUNT 3.39 10^6/uL (4.18-5.33); RED CELL DISTRIBUTION WIDTH 17.2 % (11.5-15.2)
[2017-03-10 18:47] LABS: ALANINE AMINOTRANSFERASE 40 IU/L (9-52); ALKALINE PHOSPHATASE 112 IU/L (38-126); ANION GAP 9 mEq/L (8-16); ASPARTATE AMINOTRANSFERASE 52 IU/L (14-46); BILIRUBIN,TOTAL 0.8 mg/dL (0.1-1.4); CALCIUM 8.8 mg/dL (8.5-10.4); CARBON DIOXIDE 29 mEq/l (22-31); CHLORIDE 95 mEq/L (97-110); CREATININE 0.7 mg/dL (0.6-1.0); GLOMERULAR FILTRATION RATE > 60; GLUCOSE 109 mg/dL (70-100); INR 1.07 (0.83-1.16); POTASSIUM 4.1 mEq/L (3.5-5.2); PROTIME(PATIENT) 14.1 SEC (12.0-15.0); SODIUM 133 mEq/L (134-144); TOTAL PROTEIN 6.5 g/dL (6.3-8.2)
[2017-03-10] MEDS: SENNOSIDES 1 TAB PO SCH (19:07)
[2017-03-10] MEDS: MAGNESIUM HYDROXIDE 30 ML UDCUP PO PRN (19:07)
[2017-03-10 19:17] LABS: PLATELET ESTIMATE ADEQUATE (ADEQ)
[2017-03-10 19:18] LABS: HYPOCHROMIA 1+
[2017-03-10] MEDS ORDERED: IBUPROFEN 600 MG TAB PO PRN (23:09)
[2017-03-10] MEDS ORDERED: PROCHLORPERAZINE MALEATE 5 MG TAB PO PRN (23:09)
[2017-03-10] MEDS ORDERED: NS 1,000 ML IV SCH (23:15)
[2017-03-11] MEDS: oxyCODONE IR 5 MG TAB PO PRN ×5 (00:55→23:47)
[2017-03-11] MEDS: ACETAMINOPHEN 325 MG TAB PO PRN (05:02)
[2017-03-11 05:34] LABS: ABSOLUTE NRBC COUNT 0.02 10^3/uL (0-0.01); ADD DIFF? YES; ADD MORPH? NO; ADD SCAN? NO; ATYPICAL LYMPHOCYTE FLAG 0 (0-99); FRAGMENT RBC FLAG 20 (0-99); HEMATOCRIT 27.7 % (38.0-47.0); HEMOGLOBIN 8.8 g/dL (12.6-16.3); LEFT SHIFT FLG 20 (0-99); LIPEMIA HEMOLYSIS FLAG 80 (0-99); MEAN CELL HEMOGLOBIN 28.3 pg (27.9-34.1); MEAN CELL HEMOGLOBIN CONCENTR. 31.8 g/dL (32.4-36.7); MEAN CELL VOLUME 89.1 fL (81.5-99.8); MEAN PLATELET VOLUME 9.6 fL (8.7-11.7); PLATELET CLUMPS FLAG 0 (0-99); PLATELET COUNT 238 10^3/uL (150-400); RED BLOOD CELL COUNT 3.11 10^6/uL (4.18-5.33); RED CELL DISTRIBUTION WIDTH 17.4 % (11.5-15.2)
[2017-03-11 05:52] LABS: ANION GAP 8 mEq/L (8-16); CALCIUM 8.3 mg/dL (8.5-10.4); CARBON DIOXIDE 30 mEq/l (22-31); CHLORIDE 98 mEq/L (97-110); CREATININE 0.6 mg/dL (0.6-1.0); GLOMERULAR FILTRATION RATE > 60; GLUCOSE 95 mg/dL (70-100); POTASSIUM 3.9 mEq/L (3.5-5.2); SODIUM 136 mEq/L (134-144)
[2017-03-11 06:03] LABS: MICROCYTES 1+; PLATELET ESTIMATE ADEQUATE (ADEQ)
[2017-03-11 06:26] LABS: PROCALCITONIN 0.37 ng/mL (0.02-0.10)
--- NOTE | 2017-03-11 06:53 | PDMN ---
Medical Necessity Medical necessity: Pt meets INPT criteria per MD and [facility] [place] [facility] (met. breast cancer with breast erosion/extruding implant with ulcerations present; surgery pending; est. LOS >2 MN).
[2017-03-11] MEDS: SENNOSIDES 1 TAB PO SCH ×2 (08:38→20:56)
[2017-03-11] MEDS: (Mometasone/Formoterol [Dulera 200 Mcg/5 Mcg Inhaler] IH SCH ×2 (09:54→21:26)
--- NOTE | 2017-03-11 13:41 | HOSPPROG ---
Hospitalist Progress Note Assessment/Plan: 52 y/o female with Metastatic breast cancer presenting with #breast erosion / extruding implant - Likely secondary to radiation. Ulcerations present, but no purulence and not obviously infected. -awaits surgery later today -blood cultures NGTD PCT mildly elevated. continue to monitor off of abx #Tmax 38.1 at 0400 -continue to monitor. no obvious source of infection at this time #Asthma - stable, cont home Dulera once med rec completed #Full code Dispo - inpt, suspect will require >48 hrs hospitalization for ongoing management of right breast implant extrusion Subjective: pain controlled. no acute complaints. awaits surgery later today Objective: Vital Signs Temp Pulse Resp BP Pulse Ox 36.7 C 78 20 102/66 95 03/11/17 13:00 03/11/17 13:00 03/11/17 13:00 03/11/17 13:00 03/11/17 13:00 Microbiology 03/10/17 17:00 Gram Stain - Final Breast - Swab Laboratory Results 03/11/17 05:20 03/11/17 05:20 03/10/17 03/11/17 03/12/17 05:59 05:59 05:59 Intake Total 1160 Balance 1160 PT 14.1 SEC (12.0-15.0) 03/10/17 18:10 INR 1.07 (0.83-1.16) 03/10/17 18:10 - Physical Exam Constitutional: no apparent distress, appears nourished, not in pain Cardiovascular: regular rate and rhythym, no murmur, rub, or gallop Respiratory: no respiratory distress, no rales or rhonchi, clear to auscultation Neurologic: AAOx3, sensation intact bilaterally ICD10 Worksheet Patient Problems: Problems Problem Status Onset Dyspnea Acute Lung infiltrate Acute Metastatic breast cancer Acute Pneumonia Acute
[2017-03-11] MEDS ORDERED: BACITRACIN ZINC 14.2 GM OINTTUBE TP ONE (14:33)
[2017-03-11] MEDS ORDERED: LIDOCAINE 1% 300 MG/30 ML SDV ONE (14:33)
[2017-03-11] MEDS ORDERED: BUPIVACAINE 0.25% 30 ML SDV ONE (14:33)
[2017-03-11] MEDS ORDERED: EPINEPHrine 30 MG/30 ML MDV (0.1 MG/0.1 ML) ONE (14:33)
[2017-03-11] MEDS ORDERED: ceFAZolin 2 GM/SWFI 2 GM/20 ML SYR IVP ONE (15:00)
[2017-03-11] MEDS ORDERED: DEXAMETHASONE 4 MG/ML VIAL IVP ONE (15:00)
--- NOTE | 2017-03-11 15:06 | GCON ---
[f rep st] CONSULTATION NEW PATIENT CONSULTATION REFERRING PHYSICIAN: Lore Enamorado MD REASON FOR CONSULTATION: Patient known to Dr. Diana Low with metastatic triple negative breast cancer who presents with left breast desquamation and extruding implant. HISTORY OF PRESENT ILLNESS: The patient is a very ernestina 52-year-old woman whose breast cancer story starts in 2014. The patient presented with left triple negative breast cancer stage IIB in May 2014. She received 4 cycles of neoadjuvant TAC from June 2014 to August 2014; it was discontinued due to pneumonitis secondary to Taxotere. She then finished 2 cycles of AC. She underwent bilateral mastectomies in November of 2014 which demonstrated 4 mm of residual invasive ductal carcinoma in the left breast and sentinel lymph node involvement with 3/8 additional nodes involved with extranodal extension. She received PMRT. She recurred in April 2016 with left chest wall disease and malignant left pleural effusion. She began treatment with capecitabine and had 2 cycles without evidence of response in the chest wall and with some increase in pleural fluid. She received 6 cycles of gemcitabine and carboplatin with response but this was stopped due to question of mild chest wall progression and hematologic toxicities and fatigue. She then had 2 cycles of Doxil with essentially stable disease but significant toxicities and decreased quality life. More recently, the [place] [facility] [id number] and has been randomized to eribulin. She completed cycle 1 day 8 on 03/03/2017. She has been dose reduced to 1.1 mg/ m2 due to neutropenia on February 24. Her left breast mass continues to be an issue and has had poor wound healing for some time. It is possible that she has had some radiation recall from Doxil. Yesterday evening, she presented with extreme pain, breast rash and extruding implant. She is maintained on a fentanyl patch along with oxycodone. She denies fevers or chills. There was a reported fever yesterday but patient thinks this is due to being covered by multiple blankets. She is going to surgery this afternoon to remove the implant, tissue evaluation with culture and possible wound VAC. PAST MEDICAL HISTORY: Breast cancer as detailed above. Anemia of chemotherapy and drug-induced neutropenia. Current metastasis of breast cancer in chest wall pleura and lymph nodes. History of hot flashes. FAMILY HISTORY: Noncontributory. MARKET RESEARCHER HISTORY: Noncontributory, she is germ line [place] negative. REVIEW OF SYSTEMS: As per HPI. Otherwise, denies increasing shortness of breath, fevers at home, chest pain, abdominal pain, nausea, vomiting, or diarrhea. She reports she is tolerating eribulin relatively well. PHYSICAL EXAM: VITAL SIGNS: Today, blood pressure 102/66, pulse of 78, respiration rate 20, O2 saturation 95% on 2 L, temperature is 36.7. GENERAL: A chronically ill woman not in acute distress but fatigued appearing. HEENT: Anicteric. NECK: Supple. HEART: Regular rate and rhythm. LUNGS: Decreasing breath sounds at the left base, somewhat on the right although the patient is not taking deep breaths. ABDOMEN: Soft, nontender. LOWER EXTREMITIES: No edema. LABS: Today's labs show white blood cell count of 2, hemoglobin 8.8, platelet count of 238,000, her absolute neutrophil count is 0.48. CMP is largely unremarkable. She did have 1 blood culture drawn which was negative and she had a swab and gram stain of the wound showing 2+ gram-positive cocci and 3+ gram-positive rods. Wound culture is pending. CURRENT MEDICATIONS: In the hospital include home pain medications. She is not currently on any antibiotics.. ASSESSMENT AND PLAN: A 52-year-old with recurrent triple negative breast cancer metastatic to the left pleura, chest wall bone, most recently been on eribulin through -1 clinical trial. Has also been receiving Zometa in the past. She has had a recent dose reduction of eribulin due to neutropenia and growth factor has been approved on the trial. The patient presents with skin breakdown and desquamation of the left chest wall and implant exposure. 1. Skin desquamation and breakdown. Patient will require surgical removal of implant and possibly a wound VAC. Plastic surgery has been consulted and plan to go to the OR today. Hopefully, can obtain some tissue to send for culture. She is not currently on antibiotics. Her ANC today is 500 which is again a concern for infection so I will go ahead and start her on growth factor daily and we will ask surgery to start antibiotics after patient goes to operating room today. 2. Triple negative breast cancer. More recently, on [place] clinical trial, has been randomized to eribulin and is status post cycle 1, day 8. Too early to assess response. Dr. Low is hoping to obtain a skin biopsy for Foundation One and future treatment options. Also, consideration to target somatic BRCA mutation (if present) with a PARP inhibitor. 3. Pleural effusion. Relatively stable on home oxygen requirements. 4. Cytopenias in relation to recent chemotherapy. Is on darbepoetin for chemotherapy-induced anemia as an outpatient. Will not re-dose here but I am going to start her on some growth factor given the ongoing issue with the implant and her ANC today. I would favor her starting antibiotics after surgery this evening. 5. Pain control. Managed on home medications at this time. We will continue to monitor. About 30 minutes spent with patient and family, more than 50% of time counseling and coordinating care. /[id number]/MODL MTDD
--- NOTE | 2017-03-11 15:10 | PDANEPAE ---
ANE History of Present Illness breast implant ID ANE Past Medical History - Cardiovascular History Hx Hypertension: No Hx Arrhythmias: No Hx Chest Pain: No Hx Coronary Artery / Peripheral Vascular Disease: No Hx CHF / Valvular Disease: No Hx Palpitations: No - Pulmonary History Hx COPD: No Hx Asthma/Reactive Airway Disease: Yes Hx Recent Upper Respiratory Infection: No Hx Oxygen in Use at Home: No Hx Sleep Apnea: No Sleep Apnea Screening Result - Last Documented: Positive Pulmonary History Comment: ASTHMA- USES DULERA INHALER - Neurologic History Hx Cerebrovascular Accident: No Hx Seizures: No Hx Dementia: No - Endocrine History Hx Diabetes: No - Renal History Hx Renal Disorders: No - Liver History Hx Hepatic Disorders: No - Neurological & Psychiatric Hx Hx Neurological and Psychiatric Disorders: No - Cancer History Hx Cancer: Yes Cancer History Comment: BREAST CANCER - Congenital Disorder History Hx Congenital Disorders: No - GI History Hx Gastrointestinal Disorders: No - Other Health History Other Health History: WEARS GLASSES FOR READING. RASH UNDER LEFT BREAST CURRENTLY - Chronic Pain History Chronic Pain: Yes (BACK PAIN) - Surgical History Prior Surgeries: 09/2015 RECONSTRUCTION SURGERY X2. 09/2014 DOUBLE MASTECTOMY. 06/18/14 PORT PLACEMENT WITH MARILEE. EYE SURGERY AT 17 YEARS OLD. 2 BACK SURGERIES ANE Review of Systems Review of systems is: negative Review of Systems: - Exercise capacity Exercise capacity: limited by disability ANE Patient History - Allergies Allergies/Adverse Reactions: No Known Allergies Allergy (Verified 01/05/17 09:20) - Home Medications Home medications: home medication list seen and reviewed Home Medications: Mometasone/Formoterol [Dulera 200 Mcg/5 Mcg Inhaler] 2 gm IH BID 07/02/16 [Last Taken 03/10/17] Prochlorperazine Maleate [Compazine 5mg (*)] 5 mg PO TIDMEAL PRN 07/02/16 [Last Taken 03/10/17] oxyCODONE IR [Oxycodone Ir (*)] 10 mg PO Q4HRS PRN 07/02/16 [Last Taken 03/10/17 ] Ibuprofen [Motrin (*)] 600 mg PO Q4HRS PRN 01/05/17 [Last Taken 03/10/17] fentaNYL [Duragesic 50 MCG Patch (*)] 50 mcg TD Q72H 03/10/17 [Last Taken ] - NPO status NPO Status: no food or drink >8 hours NPO Since - Liquids (Date): 03/11/17 NPO Since - Liquids (Time): 09:00 NPO Since - Solids (Date): 03/11/17 NPO Since - Solids (Time): 07:00 - Smoking Hx Smoking Status: Never smoked - Alcohol Use Alcohol Use: Rarely - Family Anes Hx Family Hx Anesthesia Complications: MOTHER HAS DIFFICULTY WAKING UP ANE Labs/Vital Signs - Labs Result Diagrams: 03/11/17 05:20 03/11/17 05:20 - Vital Signs Blood Pressure: 120/69 Heart Rate: 89 Respiratory Rate: 14 O2 Sat (%): 95 Height: 162.56 cm Weight: 58.967 kg ANE Physical Exam - Airway Neck exam: FROM Mallampati Score: Class 1 Mouth exam: normal dental/mouth exam - Pulmonary Pulmonary: no respiratory distress - Cardiovascular Cardiovascular: regular rate and rhythym - ASA Status ASA Status: III ANE Anesthesia Plan Anesthesia Plan: general endotracheal anesthesia
[2017-03-11] MEDS ORDERED: DEXAMETHASONE 4 MG/ML VIAL ONE (15:13)
[2017-03-11] MEDS ORDERED: MIDAZOLAM 2 MG/2 ML VIAL ONE (15:13)
[2017-03-11] MEDS ORDERED: LIDOCAINE 2% 100 MG/5 ML SYR ONE (15:13)
[2017-03-11] MEDS ORDERED: ONDANSETRON 4 MG/2 ML VIAL ONE (15:13)
[2017-03-11] MEDS ORDERED: PROPOFOL 200 MG/20 ML VIAL ONE (15:14)
[2017-03-11] MEDS ORDERED: fentaNYL 100 MCG/2 ML INJ ONE ×4 (15:14→16:20)
[2017-03-11] MEDS ORDERED: NALOXONE HCL 0.4 MG/ML INJ IVP PRN (15:39)
[2017-03-11] MEDS ORDERED: PROMETHAZINE HCL 25 MG/ML INJ IVP PRN (15:39)
[2017-03-11] MEDS ORDERED: HYDROCODONE/APAP 5/325 TAB PO PRN (15:39)
[2017-03-11] MEDS ORDERED: MEPERIDINE 25 MG/ML SYR IVP PRN (15:39)
[2017-03-11] MEDS ORDERED: ACETAMINOPHEN 500 MG TAB PO PRN (15:39)
[2017-03-11] MEDS ORDERED: OXYCODONE/APAP 5/325 TAB PO PRN (15:39)
--- NOTE | 2017-03-11 15:43 | POSTANESTH ---
Post Anesthetic Evaluation Cardiovascular Status: Normal, Stable, Similar to Pre-Op Cond Respiratory Status: Normal, Stable, Similar to Pre-op Cond. Level of Consciousness/Mental Status: Can Participate in Eval, Mildly Sleepy, Arousable Pain Control: Inadeq, Add Tx Required Nausea/Vomiting Control: Adequate, Prn Tx Ordered Complications Possibly Related to Anesthesia: None Noted
[2017-03-11] MEDS ORDERED: SUGAMMADEX SODIUM 200 MG/2 ML VIAL IVP ONE (15:50)
[2017-03-11] MEDS ORDERED: HYDROmorphONE/DILAUDID 1 MG/ML INJ ONE ×2 (16:09→16:46)
[2017-03-11] MEDS: HYDROmorphONE/DILAUDID 1 MG/ML INJ IVP PRN ×4 (16:10→16:59)
[2017-03-11] MEDS: fentaNYL 100 MCG/2 ML INJ IVP PRN ×2 (16:22→16:28)
[2017-03-11] MEDS: HYDROmorphone HCL/NS/PF 0.4 MG/2 ML SYR IVP PRN ×2 (17:51→19:46)
[2017-03-11] MEDS: FILGRASTIM-SNDZ 480 MCG/0.8 ML SYR SC SCH (18:05)
[2017-03-12] MEDS: oxyCODONE IR 5 MG TAB PO PRN ×4 (03:29→12:17)
[2017-03-12 05:50] LABS: ADD DIFF? YES; ADD MORPH? NO; ADD SCAN? NO; ATYPICAL LYMPHOCYTE FLAG 0 (0-99); FRAGMENT RBC FLAG 20 (0-99); HEMATOCRIT 28.5 % (38.0-47.0); HEMOGLOBIN 9.4 g/dL (12.6-16.3); LEFT SHIFT FLG 70 (0-99); LIPEMIA HEMOLYSIS FLAG 80 (0-99); MEAN PLATELET VOLUME 9.4 fL (8.7-11.7); PLATELET CLUMPS FLAG 0 (0-99); PLATELET COUNT 247 10^3/uL (150-400); RED BLOOD CELL COUNT 3.24 10^6/uL (4.18-5.33); RED CELL DISTRIBUTION WIDTH 16.8 % (11.5-15.2)
[2017-03-12 06:23] LABS: HYPOCHROMIA 1+; PLATELET ESTIMATE ADEQUATE (ADEQ)
--- NOTE | 2017-03-12 08:03 | GOP ---
[f rep st] OPERATIVE REPORT DATE OF OPERATION: 03/11/2017 SURGEON: Amy Tejeda Jr., MD ANESTHESIA: General inhalational anesthetic. ANESTHESIOLOGIST: Carlos Alberto Herrera MD. PREOPERATIVE DIAGNOSIS: 1. Metastatic left breast cancer. 2. Exposure of left breast reconstructive implant. 3. Nonviable left breast mastectomy flap. POSTOPERATIVE DIAGNOSIS: 1. Metastatic left breast cancer. 2. Exposure of left breast reconstructive implant. 3. Nonviable left breast mastectomy flap. PROCEDURE PERFORMED: 1. Debridement of skin, subcutaneous tissue, and muscle from left chest wall. 2. Removal of left breast reconstructive implant. 3. Debridement of chest wall pocket. 4. Superior laterally based chest wall reconstructive flap for defect, 15 cm x 8 cm. FINDINGS: SPECIMENS: Left breast skin and subcutaneous tissue with muscle. ESTIMATED BLOOD LOSS: 50 cc. INDICATIONS: The patient is a very unfortunate 52-year-old white female with metastatic left breast cancer. She presented to Dr. Cota's clinic within a left implant exposure. Plastic Surgery was con sulted to aid in management. After evaluation, she needed to have the implant removed and the tissue s explored and closed. She was taken to the operating room for that purpose. DESCRIPTION OF PROCEDURE: After risks and benefits of procedure were explained to the patient, forma l operative consent was obtained. She was taken to the operating room. After adequate inhalational general anesthesia was provided by Dr. Carlos Alberto Herrera, she was prepped and draped in normal sterile f ashion. Procedure began by removing the left breast implant. The skin was heavily involved with likely metas tatic disease. The pocket was debrided using a curette to healthy, bleeding tissue. All devitalized tissue was removed. A superior, laterally based advancement skin flap was designed. It was advance d and rotated inferiorly into the defect, to close the chest wall defect in its entirety. The pocket was irrigated with normal saline. Meticulous hemostasis was attempted. The tissues were very friab le and likely involved with metastatic disease. A 15 round BETINA drain was placed. The flap was inset using 3-0 Monocryl suture and the skin edges were everted using surgical carmen. Bacitracin, Xerofo rm and 4x4s with compressive dressing were applied. She was extubated in the operating room, taken t o the recovery room, awake and in stable condition. DRAINS: One BETINA drain was placed. COMPLICATIONS: No complications. /[id number]/MODL
[2017-03-12] MEDS ORDERED: fentaNYL 50 MCG PATCH TD SCH (09:00)
[2017-03-12 09:16] VITALS: TEMP 97.5
[2017-03-12] MEDS: SENNOSIDES 1 TAB PO SCH (09:41)
--- NOTE | 2017-03-12 10:09 | SOAPPROG ---
SOAP Progress Note Assessment/Plan: Assessment/Plan: 52 yo woman w metastatic breast cancer who p/w left breast skin breakdown/ ulceration and implant exposure 1. Skin ulceration and implant exposure - left breast w wound healing issue since mastectomy followed by chemo/radiation admitted for skin debridement and implant removal which was done yesterday by Dr Tejeda surgery went well 1 BETINA drain in - no wound vac required MSSA from wound culture - on Cefazolin management per surgery 2. Breast ca - under care of Dr Diana Low Currently on Eribulin w [facility] clinical trial Too early to assess response 3. Pleural effusion - stable on home O2 4. Cytopenias - in setting of chemo giving growth factor while here given ANC is still <500 Pt is afebrile If discharged home over weekend, may need outpt growth factor if ANC still low would send out on abx to treat MSSA from left breast wound 03/12/17 10:06 03/12/17 10:09 Subjective: Surgery yesterday no acute events mild cough but pt states has been present before Objective: Vital Signs Temp Pulse Resp BP Pulse Ox 36.4 C 76 18 112/68 95 03/12/17 09:14 03/12/17 09:14 03/12/17 09:14 03/12/17 09:14 03/12/17 09:14 Microbiology 03/10/17 17:00 Gram Stain - Final Breast - Swab Laboratory Results 03/12/17 05:35 03/11/17 05:20 03/11/17 03/12/17 03/13/17 05:59 05:59 05:59 Intake Total 1160 1365 Output Total 90 Balance 1160 1275 PT 14.1 SEC (12.0-15.0) 03/10/17 18:10 INR 1.07 (0.83-1.16) 03/10/17 18:10 Gen - chronically ill appearing, NAD HEENT - anicteric CV - RRR Chest - decreased BS on LLL Abd - soft, NT, BS+ Ext - no sig edema Skin - left breast bandaged, BETINA in place ICD10 Worksheet Patient Problems: Problems Problem Status Onset Dyspnea Acute Lung infiltrate Acute Metastatic breast cancer Acute Pneumonia Acute
[2017-03-12] MEDS: (Mometasone/Formoterol [Dulera 200 Mcg/5 Mcg Inhaler] IH SCH (10:47)
[2017-03-12] MEDS: MAGNESIUM HYDROXIDE 30 ML UDCUP PO PRN (12:18)
[2017-03-12 12:40] VITALS: BP 107/65; PULSE 68; RESP 20; O2SAT 94
[2017-03-12] MEDS ORDERED: oxyCODONE IR 5 MG TAB PO PRN (13:06)
[2017-03-12] MEDS: FILGRASTIM-SNDZ 480 MCG/0.8 ML SYR SC SCH (13:31)
--- NOTE | 2017-03-12 16:09 | ASDISCHSUM ---
Discharge Information Plan Status: Medically Cleared to Leave: Discharge Date:03/12/2017 03:27 PM CM D/C Disposition: ADT D/C Disposition:Home, Routine, Self-Care Projected Discharge Date:03/12/2017 03:27 PM Transportation at D/C: Discharge Delay Reason: Follow-Up Date:03/12/2017 03:27 PM Discharge Slot: Final Diagnosis: Placement Information Patient Contact Information Contact Name:REESE Relationship: Address:[address] Work Phone: City:[place] Alternate Phone: State/Zip Code:[place] [address] Email: Financial Information Financial Class:HMO and PPO Plans Primary Plan Desc:[employer] Primary Plan Number:[id number] Secondary Plan Desc: Secondary Plan Number: Assessment Information [facility] CM Progress Note CM Note CM Note Notes: Pt's breast implant rremoved. Pt asked to f/u with Dr Tejeda on Wednesday for dressing. No DC needs. Date Signed: 03/12/2017 04:08 PM Electronically Signed By:Syeda Owen LCSW Intervention Information Intervention Type:*Incorrect Registration Date of Service:03/10/2017 06:55 AM Patient Type:Inpatient Staff Member:ETHAN Cuellar, Valorie Hours: Discipline: Severity: Comment:
--- NOTE | 2017-03-12 19:21 | GDS ---
[f rep st] DISCHARGE SUMMARY DISCHARGE DIAGNOSES: 1. Metastatic breast cancer. 2. Malignant pleural effusion. 3. Neutropenia. 4. Exposure of left breast reconstruction implant with nonviable left breast mastectomy flap, status post debridement and implant removal. HISTORY: The patient is a 52-year-old female with a history of breast cancer diagnosed in 2014 with chemo and bilateral mastectomy. She recently developed a pleural effusion and was found to have meta static spread with recurrence of breast cancer. She restarted chemo and developed skin changes on he r left breast, which eventually extruded her implant, and she presents to the hospital. Dr. Tejeda from Plastic Surgery saw her and brought her to the operating room and removed the implant with exten sive debridement. During surgery, it was evident that her skin is heavily involved with local metast atic disease. She had a skin flap placed and now has a wound closed with a BETINA drain. There is minim al evidence of infection; however, decision was made between Oncology and Surgery to put her empirica lly on a course of Keflex as she does remain neutropenic at discharge. Pathology from surgery is pen ding, however, appearance was consistent with locally advanced breast cancer. DISCHARGE MEDICATIONS: Please see computerized record for full detailed list. New medications: Kef evan 500 mg p.o. t.i.d. for 1 week. ADDITIONAL DISCHARGE INSTRUCTIONS: 1. BETINA care per Dr. Tejeda. 2. Follow up with Dr. Tejeda next week and dressing to remain in place until that time. 3. Neupogen shot scheduled for tomorrow at 11 a.m. at [facility]. 4. Follow up with Dr. Diana Low, usual oncologist. Greater than 30 minutes' time was spent arranging this discharge. Patient was seen and examined by joseph rene on the day of discharge. /[id number]/MODL
== END 2017-03-12 15:27 | disposition home or self-care (01) | DRG 577 ==
LOC: OBSVTOIN 16:27 → F1N 16:27
PROVIDERS: ADMIT Hospitalist; ATTEND Hospitalist
PROC: 0HPU0JZ Removal of Synthetic Substitute from Left Breast, Open Approach (ICD-10-PCS; principal; 2017-03-11 14:45)
PROC: 0JX60ZB Transfer Chest Subcutaneous Tissue and Fascia with Skin and Subcutaneous Tissue, Open Approach (ICD-10-PCS; principal; 2017-03-11 14:45)
DX: T85.42XA Displacement of breast prosthesis and implant, initial encounter (principal); C79.81 Secondary malignant neoplasm of breast; J91.0 Malignant pleural effusion; C79.2 Secondary malignant neoplasm of skin; C78.2 Secondary malignant neoplasm of pleura; C79.51 Secondary malignant neoplasm of bone; D70.9 Neutropenia, unspecified; J45.909 Unspecified asthma, uncomplicated; D64.81 Anemia due to antineoplastic chemotherapy; L59.8 Other specified disorders of the skin and subcutaneous tissue related to radiation; Z90.13 Acquired absence of bilateral breasts and nipples
CPT/HCPCS: J0171; J0690; J1100; J1170; J1642; J2001; J2250; J2405; J2704; J3010; Q5101-ZA

== ENCOUNTER → 2017-04-02 | Outpatient (CLI) | payer OTHER ==
[~2017-04-02] MED LIST changes: +BUPIVACAINE 0.25% 30 ML SDV ONE
== END ==
LOC: FIMAGING 15:53
PROVIDERS: ATTEND Internal Medicine Hematology & Oncology
PROC: 0W993ZZ Drainage of Right Pleural Cavity, Percutaneous Approach (ICD-10-PCS; principal; 2017-04-02)
DX: J91.0 Malignant pleural effusion (principal); R91.8 Other nonspecific abnormal finding of lung field; Z85.3 Personal history of malignant neoplasm of breast

== ENCOUNTER → 2017-04-20 | Outpatient (CLI) | payer OTHER ==
[~2017-04-20] MED LIST changes: -BUPIVACAINE 0.25% 30 ML SDV ONE
== END ==
LOC: FIMAGING 14:09
PROVIDERS: ATTEND Internal Medicine Hematology & Oncology
DX: J91.0 Malignant pleural effusion (principal); J98.11 Atelectasis; Z85.3 Personal history of malignant neoplasm of breast

== ENCOUNTER → 2017-04-30 | Outpatient (CLI) | payer OTHER | LOC: FIMAGING 10:16 | PROVIDERS: ATTEND Physician Assistant | PROC: 0W993ZZ Drainage of Right Pleural Cavity, Percutaneous Approach (ICD-10-PCS; principal; 2017-04-30) | DX: J90 Pleural effusion, not elsewhere classified (principal); R06.00 Dyspnea, unspecified; C50.919 Malignant neoplasm of unspecified site of unspecified female breast ==

== ENCOUNTER 2017-05-10 20:27 | Inpatient (IN) | payer OTHER ==
--- NOTE | 2017-05-10 20:55 | EDPHY ---
H & P HPI/ROS: CHIEF COMPLAINT: Shortness of breath HISTORY OF PRESENT ILLNESS: Patient is a 2-year-old female with a history of breast cancer and asthma who presents emergency department with increasing his of breath. The patient states that she feels though she has had increasing shortness of breath over the past few days. This feels similar to her asthma symptoms. Of note, the patient normally took Dulera but she has ran out of that medication and is not taking it for a week. Her insurance no longer covers that medication. The patient took an albuterol inhaler with no relief. She normally is on 2 L of oxygen at baseline throughout the day and night. She slowly increased her oxygen requirement for prior to calling the ambulance. EMS arrived they found the patient have increased work of breathing and wheezing. They treated the patient with a DuoNeb. Her symptoms subsequently improved. The patient states that she does not have increased work of breathing at this time. Her symptoms feel better. She has had no recent fever or chills. No new chest pain. No cough. REVIEW OF SYSTEMS: My complete review of systems is negative except as mentioned in the HPI. Past Medical/Surgical History: Includes breast cancer, asthma Social history: The patient does not smoke Smoking Status: Never smoked Physical Exam: Vitals noted GENERAL: No acute distress, alert. Thin. HEENT: Eyes normal to inspection, normal pharynx, no signs of dehydration. Alopecia NECK: No thyromegaly, no lymphadenopathy, supple. RESPIRATORY: Clear to auscultation bilaterally, no rales, rhonchi or wheezing. CVS: Regular rate and rhythm, no rubs, murmurs, or gallops. Chest wall: The patient has bandages over left anterior chest wall. (secondary to the removal of her implant and radiation therapy) ABDOMEN: Soft, nontender, nondistended, no organomegaly. BACK: Normal to inspection, no CVA tenderness. SKIN: Normal color, no rash, warm, dry. No pallor. EXTREMITIES: No pedal edema, no calf tenderness, no Homans sign or cords, no joint swelling. NEURO/PSYCH: Alert and oriented x3, normal mood and affect, normal motor sensory exam. Constitutional: Initial Vital Signs O2 Sat (%) 95 05/10/17 20:30 O2 Delivery Mode Nasal Cannula O2 (L/minute) 2.5 Allergies/Adverse Reactions: No Known Allergies Allergy (Verified 05/10/17 20:41) Home Medications: Medication Instructions Recorded Mometasone/Formoterol [Dulera 200 2 gm IH BID 07/02/16 Mcg/5 Mcg Inhaler] Prochlorperazine Maleate 5 mg PO TIDMEAL PRN 07/02/16 [Compazine 5mg (*)] oxyCODONE IR [Oxycodone Ir (*)] 10 mg PO Q4HRS PRN 07/02/16 Ibuprofen [Motrin (*)] 600 mg PO Q4HRS PRN 01/05/17 fentaNYL [Duragesic 50 MCG Patch 50 mcg TD Q72H 03/10/17 (*)] Cephalexin [Keflex (*)] 500 mg PO TID #21 cap 03/12/17 Medical Decision Making - Diagnostics Imaging Results: Imaging Impressions Chest X-Ray 05/10/17 20:56 Impression: Stable opacification of the left lower lobe, which could represent atelectasis or pneumonia. Interstitial prominence bilaterally, which could be secondary to pulmonary edema, lymphangitic spread of tumor, or pneumonitis. Small bilateral pleural effusions. ED Course/Re-evaluation: In the emergency department I discussed possible etiologies with the patient. I answered all her questions. A chest x-ray was ordered. Patient states that she feels better after receiving the nebulizer treatment from EMS. She appeared comfortable on recheck. I decreased her oxygen to 3 liters/minute. She maintained her oxygen saturation at 92%. Chest x-ray: Please refer the dictated report by Dr. Alcaraz. The patient does have a noted mass in the left lower lobe. This could represent atelectasis versus infiltrate. Discussed the result with the patient. Patient was concerned at her level of dyspnea. She did not feel comfortable being discharged home. She states that she has a CT and scheduled for tomorrow. Patient states that she had fluid drained out of her right chest a week ago in she briefly felt better. I discussed the case with her Rusin. Laboratory studies were ordered. If the patient's creatinine is normal I will order a CT angio. Differential Diagnosis: My different clue but is not limited to asthma exacerbation, reactive airway disease, bronchitis, pneumonia, empyema, CHF Departure - Departure Disposition: [facility] Inpatient Acute Clinical Impression: Dyspnea Exacerbation of asthma Qualifiers: Asthma severity: mild Asthma persistence: intermittent Qualified Code(s): J45.21 - Mild intermittent asthma with (acute) exacerbation Breast cancer Qualifiers: Breast location: unspecified site of breast Estrogen receptor status: unspecified Patient sex: female Laterality: bilateral Qualified Code(s): C50.911 - Malignant neoplasm of unspecified site of right female breast; C50.912 - Malignant neoplasm of unspecified site of left female breast; C50.912 - Malignant neoplasm of unspecified site of left female breast; C50.912 - Malignant neoplasm of unspecified site of left female breast; C50.912 - Malignant neoplasm of unspecified site of left female breast Condition: Good Referrals: Megan Kee PA [Primary Care Provider] - As per Instructions
[2017-05-10] MEDS ORDERED: ACETAMINOPHEN 325 MG TAB PO PRN (23:11)
[2017-05-10] MEDS ORDERED: diphenhydrAMINE 25 MG CAP PO PRN (23:11)
[2017-05-10] MEDS ORDERED: HYDROCODONE/APAP 5/325 TAB PO PRN (23:11)
--- NOTE | 2017-05-10 23:11 | CPEKG ---
Heart Rate: 115 RR Interval: 522 P-R Interval: 156 QRSD Interval: 56 QT Interval: 312 QTC Interval: 432 P [place]: 51 QRS [place]: 37 T Wave [place]: 11 EKG Severity - BORDERLINE ECG - EKG Impression: SINUS TACHYCARDIA EKG Impression: PROBABLE LEFT ATRIAL ABNORMALITY EKG Impression: BORDERLINE T ABNORMALITIES, ANTERIOR LEADS Electronically Signed By: Jose Eduardo Olson 11-May-2017 13:35:29
[2017-05-10] MEDS ORDERED: ALTEPLASE 2 MG VIAL IVP ONE (23:30)
[2017-05-10] MEDS ORDERED: oxyCODONE IR 5 MG TAB PO ONE (23:46)
[2017-05-10] MEDS ORDERED: IOPAMIDOL (ISOVUE 370) 100 ML BTL IV ONE (23:50)
[2017-05-10 23:52] LABS: PLATELET COUNT 518 10^3/uL (150-400)
[2017-05-11] MEDS: ALBUTEROL 3 ML DEYVIAL IH PRN ×3 (00:04→11:57)
[2017-05-11] MEDS ORDERED: HYDROmorphONE/DILAUDID 1 MG/ML INJ IVP ONE (00:23)
[2017-05-11] MEDS: ONDANSETRON 4 MG/2 ML VIAL IVP PRN ×3 (00:30→11:28)
[2017-05-11] MEDS ORDERED: VANCOMYCIN HCL/NORMAL SALINE 250 ML IV ONE (01:41)
[2017-05-11] MEDS ORDERED: PIPERACILLIN/TAZO 4.5 GM/DEX 100 ML IV ONE (01:41)
[2017-05-11] MEDS ORDERED: VANCOMYCIN 1 GM in D5W 250 ML IV ONE (02:00)
[2017-05-11] MEDS: ENOXAPARIN 60 MG/0.6 ML SYR SC SCH ×4 (02:05→22:20)
[2017-05-11] MEDS: oxyCODONE IR 5 MG TAB PO PRN ×5 (03:31→21:28)
[2017-05-11] MEDS: NS 1,000 ML IV SCH ×2 (04:40→16:27)
[2017-05-11 05:48] LABS: PLATELET COUNT 501 10^3/uL (150-400)
--- NOTE | 2017-05-11 06:38 | PDGENHP ---
History and Physical - Chief Complaint Shortness of breath - History of Present Illness Source-to provide history appears reliable. Electronic medical record reviewed and case discussed with ED provider. HPI-very pleasant 52-year-old female with past medical history significant for metastatic breast cancer with mets to bone and noon presents emergency department in the late evening with complaints of acute shortness of breath. Patient some is status post bilateral mastectomy for initial doses of breast cancer 2015 she underwent radiation and chemotherapy and was in remission until May 2016 with metastatic disease was noted. This evening patient developed sudden shortness of breath. EMS was called and she received nebulizer treatment with some immediate improvement in her dyspnea. Patient does chronically wear 2 L of oxygen for history of chronic hypoxia likely related to history of malignant pleural effusions. Patient has required increasing her oxygen from 2 liters/minute to 4 LPM. In the ED, patient noted to be tachycardic with continued need for increased oxygen requirements from baseline. Laboratory studies and CTA chest were ordered with notable findings for an acute right upper lobe PE, bilateral pleural effusions left greater than right. Bilateral pneumonia. Patient with normal lactate. Patient was also noted to have right greater than left swelling of the right lower extremity. She does note that she has been experiencing some increased soreness on behind her right lower thigh but denies any open wounds on her leg. Patient does have a progressive rash on her left chest which is related to her progression of her breast cancer. She denies any surrounding erythema or drainage. Lesions are painful however and patient keeps bandage for comfort. The patient denies any fevers or chills. Dyspnea as noted above. No complaint of cough or production of sputum. History Information - Allergies/Home Medication List Allergies/Adverse Reactions: No Known Allergies Allergy (Verified 05/10/17 20:41) Home Medications: Mometasone/Formoterol [Dulera 200 Mcg/5 Mcg Inhaler] 2 gm IH BID 07/02/16 [Last Taken 03/10/17] Prochlorperazine Maleate [Compazine 5mg (*)] 5 mg PO TIDMEAL PRN 07/02/16 [Last Taken 03/10/17] oxyCODONE IR [Oxycodone Ir (*)] 10 mg PO Q4HRS PRN 07/02/16 [Last Taken 03/10/17 ] Ibuprofen [Motrin (*)] 600 mg PO Q4HRS PRN 01/05/17 [Last Taken 03/10/17] fentaNYL [Duragesic 50 MCG Patch (*)] 50 mcg TD Q72H 03/10/17 [Last Taken ] I have personally reviewed and updated: family history, medical history, social history, surgical history - Past Medical History asthma Additional medical history: metastatic breast cancer, asthma, chronic hypoxia on 2lpm baseline, malignant pleural effusions, PNA - Surgical History Reports: mastectomy Additional surgical history: back surgery x2, retinal sx, port placement, bilateral mastectomy with implants and removal L. - Family History Additional family history: dad had a stroke. brother had a stroke. mom with hypertension - Social History Smoking Status: Never smoked Alcohol Use: None Drug Use: Marijuana (edibles prn) Additional social history: Lives with her . Review of Systems Review of Systems: ROS: 10pt was reviewed & negative except for what was stated in HPI & below Constitutional: Denies: chills, fever Gastrointestinal: Reports: rectal bleeding (streaks with straining with wiping.) , constipation Genitourinary: Reports: other (decreased UOP). Denies: dysuria, hematuria Muscolosketal: Reports: back pain (chronic), muscle pain (right proximal posterior thigh) Skin: Reports: rash (left chest). Denies: change in color Neurological: Reports: weakness (generalized). Denies: anxiety, depressed, numbness, tingling Hematologic/Lymphatic: Reports: anemia Physical Exam Physical Exam: Selected Entries 05/10/17 05/11/17 20:42 02:45 Blood Pressure Automatic Automatic Method Heart Rate 126 H 112 H Respiratory 16 20 Rate O2 Sat (%) 95 93 Temperature (C) 37.1 C 37 C Blood Pressure 130/93 H 108/75 Mean Arterial 105 H 86 Pressure (MAP) O2 (L/minute) 4 O2 Delivery Nasal Cannula Room Air Mode Temperature Oral Oral Source Constitutional: no apparent distress, chronically ill appearing, uncomfortable, other (NAD. patient is sitting up in bed. chronically ill, pale and thin adult female. awake and pleasant. at bedside.) Ears, Nose, Mouth, Throat: dry mucous membranes, other Cardiovascular: no murmur, rub, or gallop, tachycardia, edema (nonpitting right LE compared to the left. ), other (slightly distance heart sounds) Peripheral Pulses: 2+: dorsalis-pedis (R), dorsalis-pedis (L) Respiratory: no respiratory distress, reduced air movement (diminished bibasilar ), other (+ increased work of breathing), No expiratory wheeze, No respiratory distress Gastrointestinal: normoactive bowel sounds, soft, non-tender abdomen, distension , No tenderness Genitourinary: no bladder tenderness, No wiggins in urethra Skin: warm, rash (left chest, scabbed lesions), other (pallor), No pressure ulcer Musculoskeletal: generalized weakness, No pain with ROM Neurologic: AAOx3, sensation intact bilaterally, other (grossly normal ), No facial droop Psychiatric: interacting appropriately, not anxious, not encephalopathic, thought process linear Lab Data & Imaging Review 05/11/17 05:20 05/11/17 05:20 WBC 10.92 10^3/uL (3.80-9.50) H 05/11/17 05:20 RBC 3.25 10^6/uL (4.18-5.33) L 05/11/17 05:20 Hgb 8.9 g/dL (12.6-16.3) L 05/11/17 05:20 POC Hgb 10.2 gm/dL (12.6-16.3) L 05/10/17 23:33 Hct 27.6 % (38.0-47.0) L 05/11/17 05:20 POC Hct 30 % (38-47) L 05/10/17 23:33 MCV 84.9 fL (81.5-99.8) 05/11/17 05:20 MCH 27.4 pg (27.9-34.1) L 05/11/17 05:20 MCHC 32.2 g/dL (32.4-36.7) L 05/11/17 05:20 RDW 19.4 % (11.5-15.2) H 05/11/17 05:20 Plt Count 501 10^3/uL (150-400) H 05/11/17 05:20 MPV 9.1 fL (8.7-11.7) 05/11/17 05:20 Neut % (Auto) 70.0 % (39.3-74.2) 05/11/17 05:20 Lymph % (Auto) 9.7 % (15.0-45.0) L 05/11/17 05:20 [place] % (Auto) 18.1 % (4.5-13.0) H 05/11/17 05:20 Eos % (Auto) 0.0 % (0.6-7.6) L 05/11/17 05:20 Baso % (Auto) 0.6 % (0.3-1.7) 05/11/17 05:20 Nucleat RBC Rel Count 0.0 % (0.0-0.2) 05/11/17 05:20 Absolute Neuts (auto) 7.63 10^3/uL (1.70-6.50) H 05/11/17 05:20 Absolute Lymphs (auto) 1.06 10^3/uL (1.00-3.00) 05/11/17 05:20 Absolute Monos (auto) 1.98 10^3/uL (0.30-0.80) H 05/11/17 05:20 Absolute Eos (auto) 0.00 10^3/uL (0.03-0.40) L 05/11/17 05:20 Absolute Basos (auto) 0.07 10^3/uL (0.02-0.10) 05/11/17 05:20 Absolute Nucleated RBC 0.00 10^3/uL (0-0.01) 05/11/17 05:20 Immature Gran % 1.6 % (0.0-1.1) H 05/11/17 05:20 Immature Gran # 0.18 10^3/uL (0.00-0.10) H 05/11/17 05:20 VBG Lactic Acid 1.4 mmol/L (0.7-2.1) 05/11/17 01:50 POC Sodium 131 mEq/L (135-145) L 05/10/17 23:33 Sodium 131 mEq/L (135-145) L 05/11/17 05:20 POC Potassium 4.3 mEq/L (3.3-5.0) 05/10/17 23:33 Potassium 4.4 mEq/L (3.5-5.2) 05/11/17 05:20 POC Chloride 91 mEq/L (97-110) L 05/10/17 23:33 Chloride 90 mEq/L (97-110) L 05/11/17 05:20 Carbon Dioxide 32 mEq/l (22-31) H 05/11/17 05:20 Anion Gap 9 mEq/L (8-16) 05/11/17 05:20 POC BUN 14 mg/dL (7-23) 05/10/17 23:33 BUN 15 mg/dL (7-23) 05/11/17 05:20 Creatinine 0.6 mg/dL (0.6-1.0) 05/11/17 05:20 POC Creatinine 0.6 mg/dL (0.6-1.0) 05/10/17 23:33 Estimated GFR > 60 05/11/17 05:20 Glucose 115 mg/dL (70-100) H 05/11/17 05:20 POC Glucose 100 mg/dL (70-100) 05/10/17 23:33 Calcium 8.9 mg/dL (8.5-10.4) 05/11/17 05:20 Troponin I < 0.012 ng/mL (0.000-0.034) 05/10/17 23:35 NT-Pro-B Natriuret Pep 212 pg/mL (0-125) H 05/10/17 23:35 Laboratory Tests 05/10/17 05/10/17 05/11/17 23:35 23:35 01:50 WBC 12.54 H RBC 3.40 L Hgb 9.3 L Hct 28.9 L MCV 85.0 MCH 27.4 L MCHC 32.2 L RDW 19.3 H Plt Count 518 H MPV 9.0 Neut % (Auto) 76.1 H Lymph % (Auto) 8.3 L [place] % (Auto) 14.4 H Eos % (Auto) 0.0 L Baso % (Auto) 0.6 Nucleat RBC Rel Count 0.0 Absolute Neuts (auto) 9.55 H Absolute Lymphs (auto) 1.04 Absolute Monos (auto) 1.80 H Absolute Eos (auto) 0.00 L Absolute Basos (auto) 0.07 Absolute Nucleated RBC 0.00 Immature Gran % 0.6 Immature Gran # 0.08 VBG Lactic Acid 1.4 Sodium 129 L Potassium 4.6 Chloride 89 L Carbon Dioxide 31 Anion Gap 9 BUN 16 Creatinine 0.6 Estimated GFR > 60 Glucose 97 Calcium 9.0 Troponin I < 0.012 NT-Pro-B Natriuret Pep 212 H Imaging Review: X Ray Chest 2 View ___ Chest, PA and Lateral May 10, 2017 History: Shortness of breath. Currently on chemotherapy for breast cancer. Comparison: April 30, 2017. Findings: The heart size is stable. Small bilateral pleural effusions. Interstitial prominence bilaterally. Opacification of the left lung base, which is stable. Degenerative change thoracic spine. [id number] catheter in stable position. Impression: Stable opacification of the left lower lobe, which could represent atelectasis or pneumonia. Interstitial prominence bilaterally, which could be secondary to pulmonary edema, lymphangitic spread of tumor, or pneumonitis. Small bilateral pleural effusions. BILATERAL MODERATE LOCULATED PLEURAL EFFUSIONS, NEW ON THE RIGHT BILATERAL PNEUMONIA, WORSE IN LEFT LUNG, AND BETTER IN RIGHT PRANEETH NEW SMALL VOLUME RUL PULMONARY EMBOLUS NEW ASCITES NEW RIGHT CHEST WALL FLUID COLLECTION POSTERIOR TO RIGHT BREAST IMPLANT OSSEOUS METS SIMILAR DISCUSSED WITH DR PEREZ AT 0105 Visualized and Interpreted Chest x-ray results: Yes Chest X-Ray results: infiltrate, effusion Visualized and Interpreted imaging results: Yes Visualized and Interpreted EKG results: Yes EKG additional interpertation: sinus tachycardia 110s. no acute ST changes. nonspecific t wave flattening II, III and anterior leads. QTc 432 Assessment & Plan Assessment: A/P: Pleasant 52 yo F with metastatic breast ca presents with acute onset of dyspnea and hypoxia. #RUL PE acute - patient given tx lovenox. US for right LE. #PNA - patient started on vancomycin and zosyn. #pleural effusions - malignant effusions. consider thoracentesis for worsening sx. #acute on chronic respiratory failure hypoxia - improved with supplemental oxygen and nebulizer. #asthma exacerbation - nebs prn. patient improved. hold off on steroids. #SIRS criteria without severe sepsis - lactate WNL. pt remains tachycardic. cultures pending. on antibiotics. #metastatic breast CA - consult oncology in AM per day team. # fluid collection behind right breast implant - consider plastics/surgery consult in AM. #immunsuppression on chemo - abx, consult as above. #R leg swelling - US R LE. #ascites - 2/2 metastatic disease. no significant abdominal pain. low suspicion for sbp. #rash left chest - 2/2 breast ca. #thrombocytosis - reactive. monitor. #anemia - no hx bleeding. monitor #hyponatremia - IVF overnight. monitor bmp. #hypochloridemia - IVF as above. monitor bmp. FEN - IVF. electrolyte replacement prn. diet as tolerated. PPX - SCDs. on tx lovenox. COR - patient was being transferred to Unit will need to clarify COR status in AM. Dispo - Patient admitted to inpatient status
[2017-05-11] MEDS ORDERED: PIPERACILLIN/TAZO 2.25 GM/DEX 50 ML IV SCH ×2 (08:00→10:00)
[2017-05-11] MEDS ORDERED: PIPERACILLIN/TAZO 3.375 GM/DEX 50 ML IV SCH (08:15)
--- NOTE | 2017-05-11 08:42 | PDMN ---
Medical Necessity Medical necessity: M290 -PE- A-4 days pulm, embolism with bilat. pleural effusions, bilat pna, in pt with hx of met. br ca., pt with increased SOB, progressive rash on chest, R > L swelling in RLE., hypoxia- increase in O2 req from 2L to 4L., asthma exacerbation, SIRS without evidence of severe sepsis. further monitoring,eval and tx needed
[2017-05-11] MEDS ORDERED: ENOXAPARIN 40 MG/0.4 ML SYR SC SCH (09:00)
--- NOTE | 2017-05-11 09:14 | WOCRNPDOC ---
WOCRN Advanced Assessment Note - Skin Integrity Problem, Advanced Assess Left Chest Dressing Type: ABD Pad, Other Other Dressing Type: Medipore tape Dressing Description: Clean/Dry, Intact Exudate Amount: Minimal Exudate Color: Green, Reddish/Yellow Exudate Characteristic(s): Dried, Serosanguinous Integumentary Issue Intervention: Dressing Changed, Hydrogel Applied (to dried out areas), Mechanical Debridement Jordan Wound Tissue: Erythema (rash) Jordan Wound Swelling: Moderate Wound Bed Color: Brown, Red, Yellow Wound Bed Constitution: Red/[place] - Non Granular Tissue, Scab (dried exudate), Adhered Slough Site Odor: None Site Measurement - Head-to-Toe Length X Width X Depth (cm): [id number] Skin Integrity Problem Comment: Large, chronic, non-healing wound r/t breast carcinoma, extending from L chest to L axilla. Wound bed has patches of epithelialized tissue, mixed w/ smooth non-granulating tissue, adhered slough, and dried serous exudate. There are rash-like lesions jordan-wound, extending onto patient's abdomen, etiology unknown. She reports treating this wound w/ antibiotic ointment and ABD. says wound was getting too wet w/ previous tx. After cleansing site gently w/ NS and gauze, hydrogel wound gel was applied to the dried areas of the wound. The entire wound bed was then covered w/ Manukatex contact layer to help remove slough and soften dried exudate. Entire site was covered w/ Aquacel foam. Report given to Dr. Cota, who is familiar with this patient from the outpatient setting. [facility].
--- NOTE | 2017-05-11 09:50 | ASMTLACE ---
LEONE Acuity / Level of Answers: Yes Care: Did the patient have an inpatient admission? Comorbidities - select Answers: Any tumor (including all that apply lymphoma or leukemia) # of Emergency department Answers: 1-2 visits in the last 6 months Score: 6 Date Signed: 05/11/2017 09:50 AM Electronically Signed By:Radha Vasquez LCSW
--- NOTE | 2017-05-11 09:55 | ASMTCMCOM ---
CM Note CM Note Notes: 52 year old female admitted for SOB, Asthma exacerbation, Plueral Effusions, SIRS, Respiratory Failure. She has a hx of Breast CA with mets and non healing wound on L chest. interested in private duty care resources. CM to follow. Date Signed: 05/11/2017 09:55 AM Electronically Signed By:Radha Vasquez LCSW
[2017-05-11 10:04] LABS: INR 1.18 (0.83-1.16); PROTIME(PATIENT) 15.2 SEC (12.0-15.0)
[2017-05-11] MEDS: cefTRIAXone 1 GM in STERILE WATER INJ 10 ML IV SCH (10:26)
--- NOTE | 2017-05-11 10:48 | GCON ---
[f rep st] CONSULTATION INPATIENT ONCOLOGY CONSULTATION DATE OF CONSULTATION: 05/11/2017 REFERRING PHYSICIAN: Obdulio Haji MD OUTPATIENT ONCOLOGIST: Dr. Diana Low. REASON FOR CONSULTATION: Dyspnea in the setting of metastatic breast cancer. HISTORY OF PRESENT ILLNESS: The patient is a 52-year-old woman with metastatic triple negative breast cancer. She was initially diagnosed in 2014 with localized disease and underwent bilateral mastectomy followed by adjuvant chemotherapy. She unfortunately had a metastatic recurrence in 2017. She has had a number of prior therapies including Xeloda, Taxotere, carboplatin and gemcitabine. Most recently, she was on a clinical trial of eribulin, cycle 4 is due to start on May 12. Her disease is located in the skin as well as bilateral pleural effusions. Her last scan showed some evidence of progression , but not pronounced enough to take her off the study so she has continued with the eribulin. She came into the hospital yesterday with a complaint of worsening dyspnea. She had bilateral pneumonia as well as pleural effusions including a new effusion on the right side. There is a small volume pulmonary embolism as well as new ascites. There was also some fluid posterior to the right breast implant. The osseous metastases appear the same. She is also having some worsening back pain and is taking narcotics at home. She has tried Neurontin and Lyrica though they did not agree with her. PAST MEDICAL HISTORY: Metastatic triple negative breast cancer as described above. CURRENT MEDICATIONS: Include ceftriaxone, Lovenox 60 mg subcutaneously twice daily, morphine IV, oxycodone, vancomycin. ALLERGIES: No known drug allergies. FAMILY HISTORY: Noncontributory. SOCIAL HISTORY: She is nonsmoker, nondrinker. Lives with the . REVIEW OF SYSTEMS: Other than pertinent positives in HPI, a 14-point review of systems is negative. PHYSICAL EXAMINATION: VITAL SIGNS: Temperature is 36.6, blood pressure 122/95 , heart rate 112, oxygen saturation 94% on 3 L. GENERAL: She was a thin woman , chronically ill appearing, very tired. HEENT: Sclerae anicteric. Oropharynx is clear. NECK: Supple without lymphadenopathy. LUNGS: Notable for distant breath sounds in both lungs. CARDIAC: Regular rate and rhythm. No murmurs, gallops, rubs. ABDOMEN: Normoactive bowel sounds. Markedly distended with ascites. No tenderness or rebound or guarding. EXTREMITIES: 1 + edema. SKIN: No petechiae or purpura. NEUROLOGIC: She was alert and oriented x3. LABORATORY DATA: White count 10.9, hemoglobin 8.9, platelets of 501. Sodium 131, potassium 4.0, chloride of 90, bicarb 32, BUN 15, creatinine 0.6. Liver function tests were normal though the albumin was low 2.4. IMAGING STUDIES: Reviewed in the HPI. IMPRESSION: This is a 52-year-old woman with metastatic triple negative breast cancer. She is now presenting with progressive pleural effusions as well as a pneumonia and pulmonary embolism. She is fairly ymptomatic, but hemodynamically stable. RECOMMENDATIONS: 1. Proceed with right-sided thoracentesis to see if that provides some relief. Would also check the fluid for infection, but more likely it is related to the malignancy. 2. Could consider a paracentesis therapeutically if her abdomen remains uncomfortable. 3. Continue pain control and treatment of infection as you are. 4. She will need to be on indefinite anticoagulation given the pulmonary embolism and metastatic cancer. Lovenox is a reasonable choice for now although on discharge, it may be better to transition her to something easier to manage such as Xarelto or Eliquis. 5. Her primary oncologist, Dr. Low, will be by tomorrow to speak with her about the direction of her care and overall prognosis. My sense is that she is progressing on the current chemotherapy. It might be reasonable to pursue palliative care alone at this point, particularly given her poor performance status. We will continue to follow patient with you closely while she is in the hospital. /[id number]/MODL MTDD
[2017-05-11] MEDS ORDERED: ALBUTEROL 60 PUFFS/8 GM MDI IH PRN (12:32)
[2017-05-11] MEDS ORDERED: oxyCODONE IR 5 MG TAB PO PRN (12:32)
[2017-05-11] MEDS ORDERED: HYDROmorphONE/DILAUDID 4 MG TAB PO PRN (12:33)
[2017-05-11] MEDS: HYDROmorphONE/DILAUDID 1 MG/ML INJ IVP PRN ×2 (13:23→16:01)
[2017-05-11] MEDS ORDERED: VANCOMYCIN 1 GM in NS 250 ML IV SCH (14:00)
[2017-05-11] MEDS ORDERED: LIDOCAINE 1% 300 MG/30 ML SDV ONE (14:14)
[2017-05-11] MEDS: morphINE SR 15 MG TAB PO SCH ×2 (14:16→20:54)
[2017-05-11] MEDS: VANCOMYCIN HCL/NORMAL SALINE 250 ML IV SCH (14:17)
--- NOTE | 2017-05-11 14:35 | HOSPPROG ---
Hospitalist Progress Note Assessment/Plan: * metastatic breast cancer * Seems to be progressing on chemotherapy * Oncology following * acute hypoxic respiratory failure * Multifactorial - effusion, pulmonary embolism, pneumonia * community-acquired pneumonia * Continue IV ceftriaxone * Add azithromycin * pulmonary embolism * Lovenox * bilateral pleural effusion right greater than left * Thoracentesis today * ascites * Check ultrasound * pain * Continue MS Contin add Dilaudid * tachycardia * Will see if this improves with thoracentesis Subjective: Feels a little better today. Breathing a little bit better. No cough. Minimal chest pain Objective: Vital Signs Temp Pulse Resp BP Pulse Ox 36.7 C 106 H 20 111/77 95 05/11/17 11:49 05/11/17 11:57 05/11/17 11:57 05/11/17 11:49 05/11/17 11:57 Laboratory Results 05/11/17 05:20 05/11/17 05:20 05/10/17 05/11/17 05/12/17 05:59 05:59 05:59 Intake Total 884 Output Total 250 Balance 634 PT 15.2 SEC (12.0-15.0) H 05/11/17 09:50 INR 1.18 (0.83-1.16) H 05/11/17 09:50 Discussed with Oncology and Interventional Radiology CT scan personally viewed interpreted - Physical Exam Constitutional: chronically ill appearing, cachectic Eyes: EOMI, No anicteric sclera Cardiovascular: regular rate and rhythym, no murmur, rub, or gallop Respiratory: no respiratory distress, other (Decreased breath sounds especially right base) Gastrointestinal: normoactive bowel sounds, soft, non-tender abdomen, no palpable masses Skin: warm Neurologic: AAOx3 Psychiatric: interacting appropriately, not anxious, not encephalopathic, thought process linear ICD10 Worksheet Patient Problems: Problems Problem Status Onset Breast cancer Acute Dyspnea Acute Exacerbation of asthma Acute Lung infiltrate Acute Metastatic breast cancer Acute Pneumonia Acute
[2017-05-11] MEDS: POLYETHYLENE GLYCOL 3350 17 GM PKT PO SCH ×2 (16:07→21:01)
[2017-05-11] MEDS: HYDROmorphONE/DILAUDID 2 MG/ML INJ IVP PRN (20:08)
[2017-05-11] MEDS: Mometasone/Formoterol [Dulera 200 Mcg/5 Mcg Inhaler] 2 PUFFS IH SCH (20:52)
[2017-05-11] MEDS: MIRTAZAPINE 15 MG TAB PO SCH (20:54)
[2017-05-11] MEDS ORDERED: NON-FORMULARY NEW DRUG (Mirtazapine [Remeron] 15 MG) PO SCH (21:00)
[2017-05-12] MEDS: HYDROmorphONE/DILAUDID 2 MG/ML INJ IVP PRN ×2 (00:52→22:18)
[2017-05-12] MEDS: VANCOMYCIN HCL/NORMAL SALINE 250 ML IV SCH ×2 (01:10→14:34)
[2017-05-12] MEDS: ALBUTEROL 3 ML DEYVIAL IH PRN ×4 (01:15→23:58)
[2017-05-12] MEDS: oxyCODONE IR 5 MG TAB PO PRN (03:37)
[2017-05-12 04:13] LABS: PLATELET COUNT 519 10^3/uL (150-400)
[2017-05-12] MEDS: morphINE SR 15 MG TAB PO SCH ×2 (07:32→11:49)
[2017-05-12] MEDS: Mometasone/Formoterol [Dulera 200 Mcg/5 Mcg Inhaler] 2 PUFFS IH SCH ×2 (07:46→18:59)
[2017-05-12] MEDS ORDERED: SENNOSIDES/DOCUSATE SODIUM TAB PO SCH (09:00)
[2017-05-12] MEDS: cefTRIAXone 1 GM in STERILE WATER INJ 10 ML IV SCH (09:10)
[2017-05-12] MEDS: POLYETHYLENE GLYCOL 3350 17 GM PKT PO SCH ×3 (09:10→22:21)
[2017-05-12] MEDS: ENOXAPARIN 60 MG/0.6 ML SYR SC SCH ×2 (09:10→19:59)
[2017-05-12] MEDS: AZITHROMYCIN 250 MG TAB PO SCH (09:10)
[2017-05-12] MEDS: NS 1,000 ML IV SCH ×2 (09:37→22:42)
[2017-05-12] MEDS: ONDANSETRON 4 MG/2 ML VIAL IVP PRN (09:51)
--- NOTE | 2017-05-12 10:01 | SOAPPROG ---
SOAP Progress Note Assessment/Plan: I spent one hour with Lulú and Karthikeyan. We discussed that her current performance status precludes further chemotherapy right now. We also discussed the limited options available and the low likelihood of clinical benefit. We left it that we will see how see recovers over the next several days. We discussed advanced care planning. They have had an ACP visit in the office and have a copy of the MOST form at home. We discussed their questions. We reviewed code status. Lulú does not want to be on a ventilator for any prolonged period. She fears suffering with dyspnea and we discussed the priority for symptom management in detail. They would like to discuss the DNR decision more together, but are moving in that direction. Pain is poorly controlled. Fentanyl patch was not a good fit for her (frequently forgot to change). She had been on MS Contin for about a week and felt tired on it. I recommended a SEED BUYER and a palliative care consult for pain management. Dr. Youngky aware. I left a detailed voicemail for Lindy Staci. 05/12/17 09:41 Objective: Vital Signs Temp Pulse Resp BP Pulse Ox 36.7 C 109 H 21 H 123/73 H 96 05/12/17 08:00 05/12/17 08:00 05/12/17 08:00 05/12/17 08:00 05/12/17 08:00 Microbiology 05/11/17 17:02 Gram Stain - Final Pleural Fluid - Aspirate 05/11/17 09:27 Gram Stain - Final Thoracic Fluid - Aspirate Laboratory Results 05/12/17 04:05 05/12/17 04:05 05/11/17 05/12/17 05/13/17 05:59 05:59 05:59 Intake Total 884 4094 Output Total 250 50 Balance 634 4094 -50 PT 15.2 SEC (12.0-15.0) H 05/11/17 09:50 INR 1.18 (0.83-1.16) H 05/11/17 09:50 ICD10 Worksheet Patient Problems: Problems Problem Status Onset Breast cancer Acute Dyspnea Acute Exacerbation of asthma Acute Lung infiltrate Acute Metastatic breast cancer Acute Pneumonia Acute
[2017-05-12] MEDS ORDERED: NALOXONE HCL 0.4 MG/ML INJ IVP PRN (11:10)
[2017-05-12] MEDS ORDERED: HYDROmorphONE/DILAUDID 6 MG/30 ML PCA IV PRN ×2 (11:10→11:14)
[2017-05-12] MEDS ORDERED: HYDROmorphONE/DILAUDID 4 MG TAB PO PRN (11:10)
[2017-05-12] MEDS: PROCHLORPERAZINE MALEATE 10 MG TAB PO PRN ×2 (11:16→18:08)
[2017-05-12] MEDS: HYDROmorphONE/DILAUDID 6 MG/30 ML PCA IV PRN ×3 (11:26→22:02)
--- NOTE | 2017-05-12 13:29 | HOSPPROG ---
Hospitalist Progress Note Assessment/Plan: * metastatic breast cancer * Seems to be progressing on chemotherapy * Oncology following - no good options going forward * May transition towards palliative care after discharge * acute hypoxic respiratory failure * Multifactorial - effusion, pulmonary embolism, pneumonia * Improving * community-acquired pneumonia * Continue IV ceftriaxone and azithromycin * pulmonary embolism * Lovenox * bilateral pleural effusion right greater than left * Status post thoracentesis on right * Considering draining left before discharge * ascites * Not a lot of ascites on ultrasound * pain * Will try increasing MS Rolon and switching her oxycodone to oral Dilaudid * Will also start MACHINE FORMER for emergency breakthrough * tachycardia * Slightly better Subjective: Breathing feels better after thoracentesis. MS Contin does make her tired but she is willing to see how increased dose helps her pain. Objective: Vital Signs Temp Pulse Resp BP Pulse Ox 36.7 C 109 H 21 H 123/73 H 96 05/12/17 08:00 05/12/17 08:00 05/12/17 08:00 05/12/17 08:00 05/12/17 08:00 Microbiology 05/11/17 17:02 Gram Stain - Final Pleural Fluid - Aspirate 05/11/17 09:27 Gram Stain - Final Thoracic Fluid - Aspirate Laboratory Results 05/12/17 04:05 05/12/17 04:05 05/11/17 05/12/17 05/13/17 05:59 05:59 05:59 Intake Total 884 4094 Output Total 250 50 Balance 634 4094 -50 PT 15.2 SEC (12.0-15.0) H 05/11/17 09:50 INR 1.18 (0.83-1.16) H 05/11/17 09:50 Discussed with Oncology - Time Spent With Patient Time Spent with Patient: greater than 35 minutes (Discussing prognosis) Time Spent with Patient: Greater than 35 minutes spent on this patients care, greater than 50% of time spent counseling, educating, and coordinating care regarding the above mentioned plan. - Physical Exam Constitutional: chronically ill appearing, cachectic Ears, Nose, Mouth, Throat: moist mucous membranes, hearing normal, ears appear normal Cardiovascular: regular rate and rhythym, no murmur, rub, or gallop Respiratory: no respiratory distress, reduced air movement (Left base) Gastrointestinal: normoactive bowel sounds, soft, non-tender abdomen, distension Skin: warm Neurologic: AAOx3 Psychiatric: interacting appropriately, not anxious, not encephalopathic, thought process linear ICD10 Worksheet Patient Problems: Problems Problem Status Onset Breast cancer Acute Dyspnea Acute Exacerbation of asthma Acute Lung infiltrate Acute Metastatic breast cancer Acute Pneumonia Acute
--- NOTE | 2017-05-12 16:41 | ASMTCMCOM ---
CM Note CM Note Notes: CM met w/ pt for dispo planning. is agreeable to having HC, PT and OT. would like [facility], if possible. Pt and had a palliative today. A msg was left w/ [facility] to see if they can take this pt. Pt will most likely be discharging over the weekend of early next week. CM to follow. Plan: [facility], PT and OT Date Signed: 05/12/2017 04:40 PM Electronically Signed By:BETTE Echevarria
[2017-05-12] MEDS ORDERED: LACTULOSE 20 GM/30 ML UDCUP PO PRN (17:25)
[2017-05-12] MEDS ORDERED: POLYETHYLENE GLYCOL 3350 17 GM PKT PO PRN (17:25)
[2017-05-12] MEDS ORDERED: BISACODYL 10 MG SUPP PR PRN (17:25)
[2017-05-12] MEDS: SENNOSIDES/DOCUSATE SODIUM TAB PO SCH (19:56)
[2017-05-12] MEDS: morphINE SR 30 MG TAB PO SCH (19:56)
[2017-05-12] MEDS: MAGNESIUM HYDROXIDE 30 ML UDCUP PO PRN (19:57)
[2017-05-12] MEDS: MIRTAZAPINE 15 MG TAB PO SCH (20:02)
[2017-05-13] MEDS: HYDROmorphONE/DILAUDID 2 MG/ML INJ IVP PRN ×5 (00:09→09:02)
[2017-05-13] MEDS: PROCHLORPERAZINE MALEATE 10 MG TAB PO PRN (00:09)
[2017-05-13] MEDS ORDERED: ZOLPIDEM TARTRATE 5 MG TAB PO ONE (00:43)
[2017-05-13] MEDS: VANCOMYCIN HCL/NORMAL SALINE 250 ML IV SCH ×2 (02:19→14:24)
[2017-05-13] MEDS: HYDROmorphONE/DILAUDID 6 MG/30 ML PCA IV PRN ×2 (03:32→09:12)
[2017-05-13] MEDS: morphINE SR 30 MG TAB PO SCH ×3 (04:37→21:53)
[2017-05-13 04:43] LABS: PLATELET COUNT 601 10^3/uL (150-400)
[2017-05-13] MEDS: SENNOSIDES/DOCUSATE SODIUM TAB PO SCH ×2 (09:03→20:25)
[2017-05-13] MEDS: cefTRIAXone 1 GM in STERILE WATER INJ 10 ML IV SCH (09:03)
[2017-05-13] MEDS: ENOXAPARIN 60 MG/0.6 ML SYR SC SCH ×2 (09:04→20:26)
[2017-05-13] MEDS: AZITHROMYCIN 250 MG TAB PO SCH (09:04)
[2017-05-13] MEDS: POLYETHYLENE GLYCOL 3350 17 GM PKT PO SCH ×3 (09:08→21:53)
[2017-05-13] MEDS: ALBUTEROL 3 ML DEYVIAL IH PRN ×5 (09:20→23:30)
[2017-05-13] MEDS: Mometasone/Formoterol [Dulera 200 Mcg/5 Mcg Inhaler] 2 PUFFS IH SCH ×4 (09:20→20:17)
[2017-05-13] MEDS ORDERED: NALOXONE HCL 0.4 MG/ML INJ IVP PRN (12:19)
--- NOTE | 2017-05-13 12:38 | SOAPPROG ---
SOAP Progress Note Assessment/Plan: Assessment: 1. Metastatic triple negative breast cancer 2. Bone mets 3. Malignant pleural effusion 4. Pneumonia (vs lymphangitic carcinomatosis) 5. Pulmonary embolism Pt is medically stable but very ill from her cancer. Much of this is probably related to the disease rather than reversible causes such as infection or PE. I met w/ her and children. I explained it is very unlikely that she will recover to the point where further chemotherapy could be considered. Hospice most likely the best option right now though they are not ready for that. Plan: - change NURSES' ASSOCIATION COUNSELOR to morphine - add dexamethasone 4 mg BID for bone pain - ongoing discussion re: prognosis and goals of care 40 min spent w/ pt and in coordination of care. 05/13/17 12:36 Subjective: still in pain. very weak and tired. Objective: exam: cachectic, somnolent Lungs: distant breath sounds CV: RRR no MGR Abd: +BS NT ND ext: no edema neuro: a+ox3 Vital Signs Temp Pulse Resp BP Pulse Ox 36.2 C 122 H 16 141/108 H 94 05/13/17 04:00 05/13/17 11:46 05/13/17 11:46 05/13/17 11:46 05/13/17 11:46 Microbiology 05/11/17 09:27 Gram Stain - Final Thoracic Fluid - Aspirate 05/11/17 17:02 Gram Stain - Final Pleural Fluid - Aspirate Laboratory Results 05/13/17 04:20 05/13/17 04:20 05/12/17 05/13/17 05/14/17 05:59 05:59 05:59 Intake Total 4094 900 Output Total 335 Balance 4094 565 PT 15.2 SEC (12.0-15.0) H 05/11/17 09:50 INR 1.18 (0.83-1.16) H 05/11/17 09:50 ICD10 Worksheet Patient Problems: Problems Problem Status Onset Breast cancer Acute Dyspnea Acute Exacerbation of asthma Acute Lung infiltrate Acute Metastatic breast cancer Acute Pneumonia Acute
[2017-05-13] MEDS: morphINE SR 15 MG TAB PO SCH (12:46)
[2017-05-13] MEDS: morphINE PCA 30 MG/30 ML PCA IV PRN (13:27)
[2017-05-13] MEDS: MAGNESIUM HYDROXIDE 30 ML UDCUP PO PRN (13:27)
[2017-05-13] MEDS: KETOROLAC 15 MG/1 ML SDV IVP SCH ×2 (13:27→18:25)
--- NOTE | 2017-05-13 13:51 | HOSPPROG ---
Hospitalist Progress Note Assessment/Plan: * metastatic breast cancer * Seems to be progressing on chemotherapy * Oncology following - no good options going forward * Hospice may be only option * Will discuss code status this afternoon * acute hypoxic respiratory failure * Multifactorial - effusion, pulmonary embolism, pneumonia * Improving * community-acquired pneumonia * Continue IV ceftriaxone and azithromycin * pulmonary embolism * Lovenox * bilateral pleural effusion right greater than left * Status post thoracentesis on right * Considering draining left before discharge * ascites * Not a lot of ascites on ultrasound * pain * Will try increasing MS Contin, adding dexamethasone and lower dose Toradol for bone pain * Switch to morphine PATIENT ACCESS REPRESENTATIVE * tachycardia * Slightly better Subjective: Had a lot of pain last night. Is getting somewhat somnolent though from pain medication Objective: Vital Signs Temp Pulse Resp BP Pulse Ox 36.2 C 122 H 16 141/108 H 94 05/13/17 04:00 05/13/17 11:46 05/13/17 11:46 05/13/17 11:46 05/13/17 11:46 Microbiology 05/11/17 09:27 Gram Stain - Final Thoracic Fluid - Aspirate 05/11/17 17:02 Gram Stain - Final Pleural Fluid - Aspirate Laboratory Results 05/13/17 04:20 05/13/17 04:20 05/12/17 05/13/17 05/14/17 05:59 05:59 05:59 Intake Total 4094 900 Output Total 335 Balance 4094 565 PT 15.2 SEC (12.0-15.0) H 05/11/17 09:50 INR 1.18 (0.83-1.16) H 05/11/17 09:50 - Physical Exam Constitutional: chronically ill appearing, cachectic Eyes: anicteric sclera Cardiovascular: no murmur, rub, or gallop, tachycardia, No edema Respiratory: no respiratory distress, reduced air movement Gastrointestinal: normoactive bowel sounds, soft, non-tender abdomen, no palpable masses Skin: warm Neurologic: AAOx3 Psychiatric: interacting appropriately, not anxious, not encephalopathic, thought process linear ICD10 Worksheet Patient Problems: Problems Problem Status Onset Breast cancer Acute Dyspnea Acute Exacerbation of asthma Acute Lung infiltrate Acute Metastatic breast cancer Acute Pneumonia Acute
[2017-05-13] MEDS: ONDANSETRON 4 MG/2 ML VIAL IVP PRN (18:05)
[2017-05-13] MEDS: NS 1,000 ML IV SCH (18:25)
[2017-05-13] MEDS: FAMOTIDINE 20 MG TAB PO SCH (20:25)
[2017-05-13] MEDS: DEXAMETHASONE 4 MG TAB PO SCH (20:25)
[2017-05-13] MEDS: MIRTAZAPINE 15 MG TAB PO SCH (20:29)
[2017-05-13] MEDS ORDERED: MIRTAZAPINE 30 MG TAB PO SCH (21:00)
[2017-05-14] MEDS: KETOROLAC 15 MG/1 ML SDV IVP SCH ×4 (00:32→17:33)
[2017-05-14] MEDS: morphINE PCA 30 MG/30 ML PCA IV PRN ×2 (01:36→18:48)
[2017-05-14 06:25] LABS: PLATELET COUNT 562 10^3/uL (150-400)
[2017-05-14] MEDS: Mometasone/Formoterol [Dulera 200 Mcg/5 Mcg Inhaler] 2 PUFFS IH SCH ×2 (08:55→21:31)
[2017-05-14] MEDS: ALBUTEROL 3 ML DEYVIAL IH PRN ×3 (08:55→21:31)
[2017-05-14] MEDS: AZITHROMYCIN 250 MG TAB PO SCH (08:57)
[2017-05-14] MEDS: morphINE SR 30 MG TAB PO SCH ×3 (08:57→21:57)
[2017-05-14] MEDS: PROCHLORPERAZINE MALEATE 10 MG TAB PO PRN (08:57)
[2017-05-14] MEDS: FAMOTIDINE 20 MG TAB PO SCH ×2 (08:58→21:57)
[2017-05-14] MEDS: MAGNESIUM HYDROXIDE 30 ML UDCUP PO PRN (08:58)
[2017-05-14] MEDS: cefTRIAXone 1 GM in STERILE WATER INJ 10 ML IV SCH (08:58)
[2017-05-14] MEDS: SENNOSIDES/DOCUSATE SODIUM TAB PO SCH ×2 (08:58→21:57)
[2017-05-14] MEDS: DEXAMETHASONE 4 MG TAB PO SCH ×2 (08:58→21:57)
[2017-05-14] MEDS: ENOXAPARIN 60 MG/0.6 ML SYR SC SCH ×2 (08:58→21:57)
[2017-05-14] MEDS: POLYETHYLENE GLYCOL 3350 17 GM PKT PO SCH ×4 (09:07→22:00)
--- NOTE | 2017-05-14 09:42 | SOAPPROG ---
SOAP Progress Note Assessment/Plan: Assessment: 1. Metastatic triple negative breast cancer 2. Bone mets 3. Malignant pleural effusion 4. Pneumonia (vs lymphangitic carcinomatosis) 5. Pulmonary embolism Pain and dyspnea under better control. Still extremely weak - largely due to cancer. Plan: - continue current pain regimen - continue abx for now - ongoing discussions about goals of care. unlikely she will recover enough to be a candidate for further chemo. DNR. - if remains stable, should try to transition to home with palliative care or hospice. Subjective: pain well controlled. minimal dyspnea. Objective: exam: cachectic, weak, but alert Lungs dullness @ bases CV RRR no MGR Abd: +BS NT Nd ext: 1+ edema neuro: a+ox3 Vital Signs Temp Pulse Resp BP Pulse Ox 36.3 C 102 H 20 127/84 H 100 05/14/17 07:26 05/14/17 09:06 05/14/17 09:06 05/14/17 07:26 05/14/17 09:06 Microbiology 05/11/17 09:27 Gram Stain - Final Thoracic Fluid - Aspirate 05/11/17 17:02 Gram Stain - Final Pleural Fluid - Aspirate Laboratory Results 05/14/17 06:15 05/14/17 06:15 05/13/17 05/14/17 05/15/17 05:59 05:59 05:59 Intake Total 900 910 800 Output Total 335 600 60 Balance 565 310 740 PT 15.2 SEC (12.0-15.0) H 05/11/17 09:50 INR 1.18 (0.83-1.16) H 05/11/17 09:50 ICD10 Worksheet Patient Problems: Problems Problem Status Onset Breast cancer Acute Dyspnea Acute Exacerbation of asthma Acute Lung infiltrate Acute Metastatic breast cancer Acute Pneumonia Acute
--- NOTE | 2017-05-14 11:40 | ASMTCMCOM ---
CM Note CM Note Notes: Met with pt's today to discuss DC needs in the home. [facility] will emile DYE RN,PT,OT. Referral was faxed to them. Talked to about pain management in the home. He agreed to have [facility] palliative meet with pt and he to discuss how they can help with pain mgmt. Referral faxed to them. Pt's DC unclear. Date Signed: 05/14/2017 11:39 AM Electronically Signed By:Syeda Owen LCSW
[2017-05-14] MEDS: NS 1,000 ML IV SCH (12:03)
--- NOTE | 2017-05-14 16:01 | WOCRNPDOC ---
WOCRN Advanced Assessment Note - Skin Integrity Problem, Advanced Assess Left Chest Dressing Type: Non-Bordered Foam (Aquacel), Other Other Dressing Type: Manukatex Exudate Amount: Moderate Exudate Color: Reddish/Yellow Exudate Characteristic(s): Sanguinous, Serosanguinous Integumentary Issue Intervention: Dressing Changed, Hydrogel Applied (to dry areas only) Anita Wound Tissue: Erythema (rash), Swollen Anita Wound Swelling: Mild Wound Bed Color: Staint Clair, Red, Yellow Wound Bed Constitution: Red/Staint Clair - Non Granular Tissue, Adhered Slough Site Odor: None Skin Integrity Problem Comment: Wound shows some slight improvement since Wednesday's assessment. Manukatex loosened some of the adhered, dried slough along the proximal aspect of the wound bed. Will continue w/ plan of care. Spoke w/ daughter and patient about reducing the frequency of dressing changes when patient goes home. She has been changing the dressing daily at home, and currently the wound is not exudative enough to warrant that frequency. Sent down some additional supplies to go home with patient.
--- NOTE | 2017-05-14 16:04 | HOSPPROG ---
Hospitalist Progress Note Assessment/Plan: 52 yo f w metastatic breast CA hyperkalemia: no clear meds follow in AM * metastatic breast cancer * Seems to be progressing on chemotherapy * Oncology following - no good options going forward * Hospice may be only option * Will discuss code status this afternoon * acute hypoxic respiratory failure * Multifactorial - effusion, pulmonary embolism, pneumonia * Improving * community-acquired pneumonia * Continue IV ceftriaxone and azithromycin * pulmonary embolism * Lovenox * bilateral pleural effusion right greater than left * Status post thoracentesis on right * Considering draining left before discharge * ascites * Not a lot of ascites on ultrasound * pain * improved w increase of MS Contin, addition of dexamethasone and lower dose Toradol for bone pain * Switch to morphine BLACK PULLER * tachycardia * Slightly better Subjective: case d/w dr londono. constipated Objective: Vital Signs Temp Pulse Resp BP Pulse Ox 36.3 C 98 14 130/84 H 94 05/14/17 14:00 05/14/17 14:00 05/14/17 14:00 05/14/17 14:00 05/14/17 14:00 Microbiology 05/11/17 09:27 Gram Stain - Final Thoracic Fluid - Aspirate Body Fluid Culture - Final 05/11/17 17:02 Gram Stain - Final Pleural Fluid - Aspirate Body Fluid Culture - Final Laboratory Results 05/14/17 06:15 05/14/17 06:15 05/13/17 05/14/17 05/15/17 05:59 05:59 05:59 Intake Total 900 910 800 Output Total 335 600 60 Balance 565 310 740 PT 15.2 SEC (12.0-15.0) H 05/11/17 09:50 INR 1.18 (0.83-1.16) H 05/11/17 09:50 - Physical Exam Constitutional: no apparent distress, appears nourished, chronically ill appearing, cachectic Eyes: PERRL, anicteric sclera Ears, Nose, Mouth, Throat: moist mucous membranes, hearing normal Cardiovascular: regular rate and rhythym, no murmur, rub, or gallop, tachycardia Respiratory: no respiratory distress, no rales or rhonchi Gastrointestinal: distension, other (firm. +bs) Genitourinary: No wiggins in urethra Skin: warm, normal color, no fluctuance Musculoskeletal: No full muscle strength Neurologic: AAOx3, sensation intact bilaterally Psychiatric: interacting appropriately, not anxious ICD10 Worksheet Patient Problems: Problems Problem Status Onset Breast cancer Acute Dyspnea Acute Exacerbation of asthma Acute Lung infiltrate Acute Metastatic breast cancer Acute Pneumonia Acute
[2017-05-14] MEDS: MIRTAZAPINE 15 MG TAB PO SCH (21:57)
[2017-05-15] MEDS: KETOROLAC 15 MG/1 ML SDV IVP SCH ×4 (00:09→17:25)
[2017-05-15] MEDS: PROCHLORPERAZINE MALEATE 10 MG TAB PO PRN ×4 (00:20→22:00)
[2017-05-15] MEDS: ALBUTEROL 3 ML DEYVIAL IH PRN ×6 (02:29→23:45)
[2017-05-15] MEDS: NS 1,000 ML IV SCH ×2 (05:57→21:59)
[2017-05-15] MEDS: Mometasone/Formoterol [Dulera 200 Mcg/5 Mcg Inhaler] 2 PUFFS IH SCH ×2 (08:23→21:21)
[2017-05-15] MEDS: FAMOTIDINE 20 MG TAB PO SCH ×2 (09:03→22:01)
[2017-05-15] MEDS: DEXAMETHASONE 4 MG TAB PO SCH ×2 (09:03→22:01)
[2017-05-15] MEDS: morphINE SR 30 MG TAB PO SCH (09:03)
[2017-05-15] MEDS: cefTRIAXone 1 GM in STERILE WATER INJ 10 ML IV SCH (09:04)
[2017-05-15] MEDS: SENNOSIDES/DOCUSATE SODIUM TAB PO SCH ×2 (09:10→22:02)
[2017-05-15] MEDS: AZITHROMYCIN 250 MG TAB PO SCH (10:53)
[2017-05-15] MEDS: POLYETHYLENE GLYCOL 3350 17 GM PKT PO SCH ×3 (10:55→22:11)
--- NOTE | 2017-05-15 10:56 | SOAPPROG ---
SOAP Progress Note Assessment/Plan: 52 yo with progressive metastatic TNBC. Progressed on most recent 4th line therapy on clinical trial (eribulin arm). Significantly compromised PS, small volume PE, ?PNA. I had lengthy discussion with Lulú and her family that I do think she will recover enough for further chemotherapy. Getting home is important to her and Mike. Appt scheduled with Jf Wednesday. I recommend palliative care/hospice at home to allow enough support for her to be in her home. Pain control and dyspnea management need to be optimized before d/c. * Pain control: MSO4 SENIOR ANALYST MARKET INTELLIGENCE total 23mg (day), 15 mg (night) yesterday. Will increase MS Contin to 45 mg TID. If SENIOR ANALYST MARKET INTELLIGENCE use decreases, can try MSIR liquid for breakthrough. Home with SENIOR ANALYST MARKET INTELLIGENCE is an option if [facility] can manage. * Dyspnea: multifactorial (bilat effusions, chest wall disease with restriction , ?PNA, small PE). R thoracentesis 05/11 (850 cc) with improved sxs. If has reaccumulated, consider PleurX. She does not have anxiety contributing to dyspnea, use benzodiazepine if it develops. - CXR - cont O2, dex, nebs * Small segmental PE: Lovenox BID. Cont for now in light of possible thoracentesis/PleurX. Consider change to NOAC on d/c depending on status, coverage by [facility], etc. * Advanced Care Planning: DNR. Plan as above. 05/15/17 10:43 Subjective: Pain is under better control. Dyspnea with minimal exertion. Feels groggy in the morning but more alert in the afternoon. , Mike, and kids, Ranjan and Hope, present. O: VS reviewed. Requiring 4L at rest. Gen: cachectic, sleepy, calm. Lungs: reduced BS bilaterally, shallow respirations. Abd: (reclined) distended, NT. Breast: right implant displaced laterally, left chest wall dressed. Objective: Vital Signs Temp Pulse Resp BP Pulse Ox 36.5 C 110 H 19 137/93 H 96 05/15/17 10:25 05/15/17 10:25 05/15/17 10:25 05/15/17 10:25 05/15/17 10:25 Microbiology 05/11/17 09:27 Gram Stain - Final Thoracic Fluid - Aspirate Body Fluid Culture - Final 05/11/17 17:02 Gram Stain - Final Pleural Fluid - Aspirate Body Fluid Culture - Final Laboratory Results 05/14/17 06:15 05/14/17 06:15 05/14/17 05/15/17 05/16/17 05:59 05:59 05:59 Intake Total 910 2943 Output Total 600 260 50 Balance 310 2683 -50 PT 15.2 SEC (12.0-15.0) H 05/11/17 09:50 INR 1.18 (0.83-1.16) H 05/11/17 09:50 ICD10 Worksheet Patient Problems: Problems Problem Status Onset Breast cancer Acute Dyspnea Acute Exacerbation of asthma Acute Lung infiltrate Acute Metastatic breast cancer Acute Pneumonia Acute
[2017-05-15] MEDS: ENOXAPARIN 60 MG/0.6 ML SYR SC SCH ×2 (12:25→22:06)
[2017-05-15] MEDS: MAGNESIUM HYDROXIDE 30 ML UDCUP PO PRN (14:06)
--- NOTE | 2017-05-15 14:44 | HOSPPROG ---
Hospitalist Progress Note Assessment/Plan: 52 yo f w metastatic breast CA # Metastatic breast cancer- progressing on chemotherapy- poor appetite and progressing pain - Oncology following - no good options going forward- will likely need hospice - cont pain medication titration WALL SCRAPER to msContin # Acute hypoxic respiratory failure - Multifactorial - effusion, pulmonary embolism, pneumonia CXR (personally reviewed and interpreted) stable small bilateral pleural effusions oxygen saturations 97% on 4L - cont Abx for PNA- ceftriaxone and azithromycin - cont inhaled beta agaonists - cont anticoagulation # hyperkalemia- potassium 5.5 -no clear cause recheck in AM # community-acquired pneumonia - Continue IV ceftriaxone and azithromycin # pulmonary embolism- cont Lovenox # bilateral pleural effusion right greater than left- Status post thoracentesis on right - monitoring with CXR # ascites - mild abdominal distention # pain- continue uptitration with calculations based on WALL SCRAPER # tachycardia- stable # proph - on anticoagulation # diet- taking minimal PO # dispo - > 2MN on IV pain meds - working to build an outpatient regimen I have discussed the case with RN - encouraging PO and using RT as needed Subjective: pain and SOB Objective: Vital Signs Temp Pulse Resp BP Pulse Ox 36.5 C 106 H 20 137/93 H 97 05/15/17 10:25 05/15/17 12:24 05/15/17 12:24 05/15/17 10:25 05/15/17 12:24 Microbiology 05/11/17 09:27 Gram Stain - Final Thoracic Fluid - Aspirate Body Fluid Culture - Final 05/11/17 17:02 Gram Stain - Final Pleural Fluid - Aspirate Body Fluid Culture - Final Laboratory Results 05/14/17 06:15 05/14/17 06:15 05/14/17 05/15/17 05/16/17 05:59 05:59 05:59 Intake Total 910 2943 Output Total 600 260 50 Balance 310 2683 -50 PT 15.2 SEC (12.0-15.0) H 05/11/17 09:50 INR 1.18 (0.83-1.16) H 05/11/17 09:50 - Physical Exam Constitutional: no apparent distress Eyes: anicteric sclera Ears, Nose, Mouth, Throat: moist mucous membranes Cardiovascular: regular rate and rhythym Respiratory: inspiratory crackles, rhonchi Gastrointestinal: normoactive bowel sounds Genitourinary: no bladder fullness Skin: warm Musculoskeletal: No asymmetric calves Neurologic: AAOx3 Psychiatric: depressed Lymph, Heme, Immunologic: no cervical LAD ICD10 Worksheet Patient Problems: Problems Problem Status Onset Breast cancer Acute Dyspnea Acute Exacerbation of asthma Acute Lung infiltrate Acute Metastatic breast cancer Acute Pneumonia Acute
[2017-05-15] MEDS: morphINE SR 15 MG TAB PO SCH ×2 (16:29→22:01)
[2017-05-15] MEDS: morphINE PCA 30 MG/30 ML PCA IV PRN (18:21)
[2017-05-15] MEDS: MIRTAZAPINE 15 MG TAB PO SCH (22:01)
[2017-05-16] MEDS: KETOROLAC 15 MG/1 ML SDV IVP SCH ×4 (01:37→18:19)
[2017-05-16] MEDS: ALBUTEROL 3 ML DEYVIAL IH PRN ×4 (02:04→20:39)
[2017-05-16] MEDS: Mometasone/Formoterol [Dulera 200 Mcg/5 Mcg Inhaler] 2 PUFFS IH SCH ×2 (09:03→20:39)
[2017-05-16] MEDS: PROCHLORPERAZINE MALEATE 10 MG TAB PO PRN (09:43)
[2017-05-16] MEDS: FAMOTIDINE 20 MG TAB PO SCH ×2 (09:43→22:06)
[2017-05-16] MEDS: morphINE SR 15 MG TAB PO SCH ×2 (09:43→17:00)
[2017-05-16] MEDS: cefTRIAXone 1 GM in STERILE WATER INJ 10 ML IV SCH (09:43)
[2017-05-16] MEDS: DEXAMETHASONE 4 MG TAB PO SCH ×2 (09:43→22:07)
[2017-05-16] MEDS: ENOXAPARIN 60 MG/0.6 ML SYR SC SCH ×2 (09:48→22:05)
[2017-05-16] MEDS: NS 1,000 ML IV SCH ×2 (09:51→22:19)
[2017-05-16] MEDS: AZITHROMYCIN 250 MG TAB PO SCH (11:05)
[2017-05-16] MEDS: SENNOSIDES/DOCUSATE SODIUM TAB PO SCH ×2 (11:05→22:09)
[2017-05-16] MEDS: POLYETHYLENE GLYCOL 3350 17 GM PKT PO SCH ×3 (11:40→22:11)
--- NOTE | 2017-05-16 12:02 | SOAPPROG ---
SOAP Progress Note Assessment/Plan: 52 yo with progressive metastatic TNBC. Progressed on most recent 4th line therapy on clinical trial (eribulin arm). Significantly compromised PS, small volume PE, ?PNA. I had lengthy discussion yesterday with Lulú and her family that I do think she will recover enough for further chemotherapy. Appt scheduled with Ulyssesdeonna Wednesday. They are concerned about being able to manage things at home. I recommended they also meet with [facility] regarding possible inpatient hospice. They are adjusting to the focus now on palliation. Pain control and dyspnea management need to be optimized before d/c. * Pain control: MSO4 BIT SHAVER total 14 (day), 16 mg (night) yesterday. She is concerned about the higher dose of MS Contin (45 mg being too sedating). If BIT SHAVER use decreases, can try MSIR liquid for breakthrough. Home with BIT SHAVER is an option if Jf can manage or continue optimizing pain meds at inpatient hospice. * Dyspnea: multifactorial (bilat effusions, chest wall disease with restriction , ?PNA, small PE). R thoracentesis 05/11 (850 cc) with improved sxs. If reaccumulates, consider PleurX. Benzodiazepines could be helpful but she does not want more sedation. - CXR yesterday without significant reacculumation - cont O2, dex, nebs * Small segmental PE: Lovenox BID. Cont for now in light of possible thoracentesis/PleurX. Consider change to NOAC on d/c depending on status, coverage by [facility] [place] [place], etc. * Advanced Care Planning: DNR. Jf appt Wed. Consult with [facility] regarding inpatient hospice. Lengthy visit with Lulú, daughter, Alyse, and Mike, the majority in counseling. 05/16/17 11:57 Subjective: Thinks increase in MS Contin caused sedation yesterday. Feels pain control is reasonable. Does not feel significant abd distention or discomfort. O: VS reviewed. Gen: arouses for conversation but falls back asleep easily. Lungs: shallow respirations. Abd: distended. Breast: right implant displaced laterally, left chest wall dressed. Objective: Vital Signs Temp Pulse Resp BP Pulse Ox 36.6 C 107 H 20 119/86 H 97 05/16/17 08:26 05/16/17 10:35 05/16/17 10:35 05/16/17 10:35 05/16/17 10:35 Microbiology 05/11/17 02:10 Blood Culture - Final Blood 05/11/17 01:50 Blood Culture - Final Blood Laboratory Results 05/14/17 06:15 05/16/17 06:05 05/15/17 05/16/17 05/17/17 05:59 05:59 05:59 Intake Total 2943 2235 Output Total 260 450 200 Balance 2683 1785 -200 PT 15.2 SEC (12.0-15.0) H 05/11/17 09:50 INR 1.18 (0.83-1.16) H 05/11/17 09:50 ICD10 Worksheet Patient Problems: Problems Problem Status Onset Breast cancer Acute Dyspnea Acute Exacerbation of asthma Acute Lung infiltrate Acute Metastatic breast cancer Acute Pneumonia Acute
[2017-05-16] MEDS: MAGNESIUM HYDROXIDE 30 ML UDCUP PO PRN (13:20)
--- NOTE | 2017-05-16 13:22 | HOSPPROG ---
Hospitalist Progress Note Assessment/Plan: 52 yo f w metastatic breast CA # Metastatic breast cancer- progressing on chemotherapy- poor appetite and progressing pain - Oncology following - no good options going forward- will likely need hospice - cont pain medication titration SCHEDULE CHECKER to msContin # Acute hypoxic respiratory failure - Multifactorial - effusion, pulmonary embolism, pneumonia CXR (personally reviewed and interpreted) no significant reaccumulation- small bilateral pleural effusions oxygen saturations 97% on 4L - cont Abx for PNA- ceftriaxone and azithromycin day 6/ - cont inhaled beta agaonists - cont anticoagulation # hyperkalemia- potassium 5.4 -no clear cause - possibly related to heparin? - consider small IVF bolus - recheck in AM # community-acquired pneumonia - Continue IV ceftriaxone and azithromycin # pulmonary embolism- cont Lovenox # bilateral pleural effusion right greater than left- Status post thoracentesis on right - monitoring with CXR # ascites - mild abdominal distention # pain- continue uptitration with calculations based on SCHEDULE CHECKER # tachycardia- stable # proph - on anticoagulation # diet- taking minimal PO # dispo - > 2MN on IV pain meds - working to build an outpatient regimen I have discussed the case with RN - continue pain management anticipate- [facility] consult tomorrow Subjective: pain improved - feeling sedated Objective: Vital Signs Temp Pulse Resp BP Pulse Ox 36.6 C 106 H 20 132/88 H 100 05/16/17 08:26 05/16/17 12:22 05/16/17 12:22 05/16/17 12:22 05/16/17 12:22 Microbiology 05/11/17 02:10 Blood Culture - Final Blood 05/11/17 01:50 Blood Culture - Final Blood Laboratory Results 05/14/17 06:15 05/16/17 06:05 05/15/17 05/16/17 05/17/17 05:59 05:59 05:59 Intake Total 2943 2235 Output Total 260 450 200 Balance 2683 1785 -200 PT 15.2 SEC (12.0-15.0) H 05/11/17 09:50 INR 1.18 (0.83-1.16) H 05/11/17 09:50 - Physical Exam Constitutional: chronically ill appearing, cachectic Eyes: anicteric sclera Ears, Nose, Mouth, Throat: dry mucous membranes Cardiovascular: regular rate and rhythym Respiratory: no respiratory distress Gastrointestinal: normoactive bowel sounds Genitourinary: no bladder fullness Skin: warm Musculoskeletal: No asymmetric calves Neurologic: AAOx3 Psychiatric: depressed, flat affect Lymph, Heme, Immunologic: no cervical LAD ICD10 Worksheet Patient Problems: Problems Problem Status Onset Breast cancer Acute Dyspnea Acute Exacerbation of asthma Acute Lung infiltrate Acute Metastatic breast cancer Acute Pneumonia Acute
--- NOTE | 2017-05-16 17:30 | ASMTCMCOM ---
CM Note CM Note Notes: Jf contacted about coming to [facility] to talk with patient to see if they might be able to control her pain at home or if she will have to go into in-pt Hospice with [facility]. Jf faxed 05/16/[address] Low. If [facility]f can's assist at home, we will need to contact [facility]. to follow. Date Signed: 05/16/2017 05:30 PM Electronically Signed By:Radha Vasquez LCSW
[2017-05-16] MEDS: morphINE PCA 30 MG/30 ML PCA IV PRN (17:35)
[2017-05-16] MEDS: morphINE SR 30 MG TAB PO SCH (18:45)
[2017-05-16] MEDS: MIRTAZAPINE 15 MG TAB PO SCH (22:06)
[2017-05-17] MEDS: KETOROLAC 15 MG/1 ML SDV IVP SCH ×5 (00:12→23:59)
[2017-05-17] MEDS: morphINE SR 15 MG TAB PO SCH ×2 (00:13→21:45)
[2017-05-17] MEDS ORDERED: morphINE SR 30 MG TAB PO SCH (09:00)
[2017-05-17] MEDS: AZITHROMYCIN 250 MG TAB PO SCH (09:06)
[2017-05-17] MEDS: DEXAMETHASONE 4 MG TAB PO SCH ×3 (09:06→21:44)
[2017-05-17] MEDS: cefTRIAXone 1 GM in STERILE WATER INJ 10 ML IV SCH (09:12)
[2017-05-17] MEDS: ONDANSETRON 4 MG/2 ML VIAL IVP PRN (09:21)
[2017-05-17] MEDS: FAMOTIDINE 20 MG TAB PO SCH ×2 (10:20→21:44)
[2017-05-17] MEDS: morphINE SR 30 MG TAB PO SCH ×2 (10:23→16:09)
[2017-05-17] MEDS: SENNOSIDES/DOCUSATE SODIUM TAB PO SCH ×2 (10:24→21:48)
[2017-05-17] MEDS: POLYETHYLENE GLYCOL 3350 17 GM PKT PO SCH ×3 (10:25→21:48)
--- NOTE | 2017-05-17 10:26 | SOAPPROG ---
SOAP Progress Note Assessment/Plan: Assessment: 1) Metastatic breast cancer 2) Pain secondary to #1 3) Small volume PE (patient on Lovenox) 4) Hyperkalemia Plan: Patient is currently in the dying process from metastatic breast cancer. Patient 's and daughter are at the bedside. Patient and family are accepting that she is reaching the end of her life. No further treatment of her breast cancer is planned. She would like to go home with hospice. They are meeting with [facility] today. Ideally she can go home with hospice. If her pain medication needs are felt to be too difficult for home Hospice, then inpatient hospice would be appropriate. I think that continuing her Lovenox is reasonable for now in light of her PE, though this could be stopped as her overall condition deteriorates. Case d/w Dr. Wise. Her hyperkalemia may be secondary to heparin. Will give kaexylate for now. In light of patient's condition, and the fact that she has entered the dying process, I do not think continuing to monitor her electrolytes would be productive. Patient and family questions answered. Plan for d/c with home hospice. 05/17/17 10:16 Subjective: Patient's pain currently controlled. and daughter at the bedside. Meeting with [facility] planned for later today. Objective: Vital Signs Temp Pulse Resp BP Pulse Ox 36.7 C 106 H 15 140/100 H 95 05/17/17 10:00 05/17/17 10:00 05/17/17 10:00 05/17/17 10:00 05/17/17 10:00 Microbiology 05/11/17 02:10 Blood Culture - Final Blood 05/11/17 01:50 Blood Culture - Final Blood Laboratory Results 05/14/17 06:15 05/17/17 06:20 05/16/17 05/17/17 05/18/17 05:59 05:59 05:59 Intake Total 2235 2580.3 Output Total 450 650 Balance 1785 1930.3 PT 15.2 SEC (12.0-15.0) H 05/11/17 09:50 INR 1.18 (0.83-1.16) H 05/11/17 09:50 - Time Spent With Patient Time Spent With Patient: 25 minutes Physical Exam - Physical Exam General Appearance: no apparent distress, other (Lethargic. Sitting in chair) Neuro/Psych: alert, oriented x 3 ICD10 Worksheet Patient Problems: Problems Problem Status Onset Breast cancer Acute Dyspnea Acute Exacerbation of asthma Acute Lung infiltrate Acute Metastatic breast cancer Acute Pneumonia Acute
[2017-05-17] MEDS: Mometasone/Formoterol [Dulera 200 Mcg/5 Mcg Inhaler] 2 PUFFS IH SCH ×2 (10:30→21:02)
[2017-05-17] MEDS: ENOXAPARIN 60 MG/0.6 ML SYR SC SCH ×2 (10:56→21:44)
[2017-05-17] MEDS ORDERED: PROMETHAZINE HCL 25 MG/ML INJ IVP PRN (10:57)
[2017-05-17] MEDS: NS 1,000 ML IV SCH (13:37)
[2017-05-17] MEDS: ALBUTEROL 3 ML DEYVIAL IH PRN ×2 (13:48→21:01)
[2017-05-17] MEDS: morphINE PCA 30 MG/30 ML PCA IV PRN (15:55)
--- NOTE | 2017-05-17 16:18 | HOSPPROG ---
Hospitalist Progress Note Assessment/Plan: 52 yo f w metastatic breast CA # Metastatic breast cancer- progressing on chemotherapy- poor appetite and progressing pain - Oncology following - no good options going forward- will likely need hospice - cont morphine PRODUCTION SUPERVISOR OFF SHIFT - to dc home with hospice - continue msContin # Acute hypoxic respiratory failure - Multifactorial - effusion, pulmonary embolism, pneumonia CXR (personally reviewed and interpreted) no significant reaccumulation- small bilateral pleural effusions oxygen saturations 91% on 4L - completed ceftriaxone and azithromycin today - cont inhaled beta agaonists - cont anticoagulation # hyperkalemia- potassium 5.9 -no clear cause - possibly related to heparin? - consider kayexelate - small IVF bolus - recheck in AM # community-acquired pneumonia - Completed IV ceftriaxone and azithromycin # pulmonary embolism- cont Lovenox # bilateral pleural effusion right greater than left- Status post thoracentesis on right - monitoring with CXR # ascites - mild abdominal distention # pain- continue morphine PRODUCTION SUPERVISOR OFF SHIFT # tachycardia- stable # proph - on anticoagulation # diet- taking minimal PO # dispo - > 2MN on IV pain meds - working to build an outpatient regimen I have discussed the case with CM - we are working on hospice dispo tomorrow with PRODUCTION SUPERVISOR [employer] Subjective: pain managed with meds Objective: Vital Signs Temp Pulse Resp BP Pulse Ox 36.6 C 107 H 18 141/106 H 91 L 05/17/17 15:49 05/17/17 15:49 05/17/17 15:49 05/17/17 15:49 05/17/17 15:49 Laboratory Results 05/14/17 06:15 05/17/17 06:20 05/16/17 05/17/17 05/18/17 05:59 05:59 05:59 Intake Total 2235 2580.3 Output Total 450 650 250 Balance 1785 1930.3 -250 PT 15.2 SEC (12.0-15.0) H 05/11/17 09:50 INR 1.18 (0.83-1.16) H 05/11/17 09:50 - Physical Exam Constitutional: chronically ill appearing, cachectic Eyes: anicteric sclera Ears, Nose, Mouth, Throat: dry mucous membranes Cardiovascular: regular rate and rhythym Respiratory: no respiratory distress, reduced air movement, inspiratory crackles Gastrointestinal: normoactive bowel sounds Genitourinary: no bladder fullness Skin: warm Musculoskeletal: No asymmetric calves Neurologic: AAOx3, other (somnolent) Psychiatric: No agitated Lymph, Heme, Immunologic: no cervical LAD ICD10 Worksheet Patient Problems: Problems Problem Status Onset Breast cancer Acute Dyspnea Acute Exacerbation of asthma Acute Lung infiltrate Acute Metastatic breast cancer Acute Pneumonia Acute
--- NOTE | 2017-05-17 17:21 | ASMTCMCOM ---
CM Note CM Note Notes: Sylvie, hemodialysis patient care specialist from [facility] here today and met w/family and pt. They decided they are ready for Hospice. Plan is to dc home tomorrow w/ and kids who are in their 20's and will be followed by [facility]. [facility] is able to manage home LEAD SOFTWARE TEST ENGINEER/pain for pt at home per Sylvie. DME will be delivered to pt's home btw 8-12 tomorrow and transport has been set up for 1PM with [facility] for which will pay privately as he called insurance co and found out they do not cover. Paperwork for [facility] at front of pt chart. Discussed plan w/Dr Wise. Order for home LEAD SOFTWARE TEST ENGINEER sent to [facility] and [facility] RN will be out to hospital in AM to switch out LEAD SOFTWARE TEST ENGINEER pump prior to dc. Discussed this with RN. CM will follow. Date Signed: 05/17/2017 05:20 PM Electronically Signed By:Eliana Hopper, ETHAN
[2017-05-17] MEDS: MIRTAZAPINE 15 MG TAB PO SCH (21:44)
[2017-05-18 04:09] VITALS: RESP 16
[2017-05-18] MEDS: KETOROLAC 15 MG/1 ML SDV IVP SCH (05:37)
[2017-05-18] MEDS: Mometasone/Formoterol [Dulera 200 Mcg/5 Mcg Inhaler] 2 PUFFS IH SCH (08:40)
[2017-05-18] MEDS: ALBUTEROL 3 ML DEYVIAL IH PRN (08:40)
[2017-05-18] MEDS ORDERED: MBX SOLN 30 ML BOTTLE PO PRN (09:57)
[2017-05-18] MEDS: SENNOSIDES/DOCUSATE SODIUM TAB PO SCH (09:58)
[2017-05-18] MEDS: DEXAMETHASONE 4 MG TAB PO SCH (10:00)
[2017-05-18] MEDS: FAMOTIDINE 20 MG TAB PO SCH (10:01)
[2017-05-18] MEDS: morphINE SR 30 MG TAB PO SCH (10:01)
[2017-05-18] MEDS: ENOXAPARIN 60 MG/0.6 ML SYR SC SCH (10:01)
[2017-05-18] MEDS: POLYETHYLENE GLYCOL 3350 17 GM PKT PO SCH (10:06)
[2017-05-18 10:43] VITALS: BP 136/97; PULSE 103; TEMP 98.1; O2SAT 100
--- NOTE | 2017-05-18 22:04 | GDS ---
[f rep st] DISCHARGE SUMMARY DISCHARGE DIAGNOSES: 1. Metastatic breast cancer. 2. Acute hypoxic respiratory failure. 3. Pulmonary embolism. 4. Malignant pleural effusion. 5. Community-acquired pneumonia. 6. Chronic malignant ascites. 7. Chronic pain. 8. Hyperkalemia. HISTORY OF PRESENT ILLNESS: A 52-year-old female with metastatic breast cancer actively receiving ch emotherapy, who presents on 05/10/2017 with complaints of shortness of breath. For details of the shaheed smith's initial presentation, please see the history and physical dated 05/10/2017. CONSULTATIVE SERVICES: Oncology. PROCEDURES: On 05/11/2017, the patient underwent thoracentesis with removal of 850 mL of pleural flu id. HOSPITAL COURSE: 1. Metastatic breast cancer. The patient has had progressive disease on treatment. Decision was sera aguiar during this hospital stay to transition care to hospice. The patient had aggressive attention niels d to her pain medication titration. Ultimately, the patient was discharged on t.i.d. long-acting mor phine with a morphine MANAGER DRIVE for supplemental short-acting coverage. Her home hospice provider will be providing these medications. 2. Community-acquired pneumonia. The patient completed a full 7-day course of antibiotics. 3. Pulmonary embolism. The patient was discharged on b.i.d. Lovenox to be discontinued at her wishe s upon transition to hospice. 4. Bilateral pleural effusions, malignant in nature. The patient received 1 large volume thoracente sis without rapid reaccumulation. She is being discharged without the placement of a Coleman drain or diuretics to hospice. 5. Hyperkalemia. The patient did develop hyperkalemia over the last few days of her hospital stay. There is not a clear source for this. I suspect it may be related to her Lovenox therapy. Decision s were made not to initiate Kayexalate therapy secondary to comfort. We suspect the patient will be discontinuing Lovenox soon after arrival back home. MEDICATIONS AT THE TIME OF DISPOSITION: Please reference the med rec printed on 05/18/2017. FOLLOWUP APPOINTMENTS: Home hospice for end of life care. PENDING STUDIES: None. TIME SPENT: I spent greater than 30 minutes in the planning and coordination of this discharge. /[id number]/MODL
--- NOTE | 2017-05-19 09:09 | ASDISCHSUM ---
Discharge Information Plan Status:Hospice-Home Medically Cleared to Leave: Discharge Date:05/18/2017 12:55 PM D/C Disposition:Hospice Home ADT D/C Disposition:Home, Routine, Self-Care Projected Discharge Date:05/17/2017 11:00 AM Transportation at D/C:ALS/BLS Discharge Delay Reason: Follow-Up Date:05/17/2017 11:00 AM Discharge Slot: Final Diagnosis: Placement Information Referral Type:*Home Health Care Services Referral ID:[id number] Provider Name: Address 1: Phone Number: Address 2: Fax Number: City: Selection Factors: State: Referral Type:Palliative Care Referral ID:[id number] [facility] Address 1:[address] Phone Number: Address 2: Fax Number: [facility]:[place] Selection Factors: State:[place] Patient Contact Information Contact Name:JOSEEBONIEYONI Relationship: Address:[address] Work Phone: City:[place] Alternate Phone: State/Zip Code:[place] [address] Email: Financial Information Financial Class:HMO and PPO Plans Primary Plan Desc:[employer] Primary Plan Number:[id number] Secondary Plan Desc: Secondary Plan Number: Assessment Information LACE LACE Acuity / Level of Answers: Yes Care: Did the patient have an inpatient admission? Comorbidities - select Answers: Any tumor (including all that apply lymphoma or leukemia) # of Emergency department Answers: 1-2 visits in the last 6 months Score: 6 Date Signed: 05/11/2017 09:50 AM Electronically Signed By:Radha Vasquez LCSW [facility] CM Progress Note CM Note CM Note Notes: 52 year old female admitted for SOB, Asthma exacerbation, Plueral Effusions, SIRS, Respiratory Failure. She has a hx of Breast CA with mets and non healing wound on L chest. interested in private duty care resources. CM to follow. Date Signed: 05/11/2017 09:55 AM Electronically Signed By:Radha Vasquez LCSW [facility] CM Progress Note CM Note CM Note Notes: CM met w/ pt for dispo planning. is agreeable to having HC, PT and OT. would like [facility], if possible. Pt and had a palliative today. A msg was left w/ [facility] to see if they can take this pt. Pt will most likely be discharging over the weekend of early next week. CM to follow. Plan: [facility], PT and OT Date Signed: 05/12/2017 04:40 PM Electronically Signed By:BETTE Echevarria [facility] CM Progress Note CM Note CM Note Notes: Met with pt's today to discuss DC needs in the home. [facility] will emile HC RN,PT,OT. Referral was faxed to them. Talked to about pain management in the home. He agreed to have [facility] palliative meet with pt and he to discuss how they can help with pain mgmt. Referral faxed to them. Pt's DC unclear. Date Signed: 05/14/2017 11:39 AM Electronically Signed By:Syeda Owen LCSW [facility] CM Progress Note CM Note CM Note Notes: [facility] contacted about coming to [facility] to talk with patient to see if they might be able to control her pain at home or if she will have to go into in-pt Hospice with [facility]. Jf faxed 05/16/[address] Low. If [facility] can's assist at home, we will need to contact [facility]. CM to follow. Date Signed: 05/16/2017 05:30 PM Electronically Signed By:Radha Vasquez [facility] CM Progress Note CM Note CM Note Notes: Sylvie, primary care coordinator from [facility] here today and met w/family and pt. They decided they are ready for Hospice. Plan is to dc home tomorrow w/ and kids who are in their 20's and will be followed by [facility]. [facility] is able to manage home MASCARA MOLDER/pain for pt at home per Sylvie. DME will be delivered to pt's home btw 8-12 tomorrow and transport has been set up for 1PM with [facility] for which will pay privately as he called insurance [employer] and found out they do not cover. Paperwork for [facility] at front of pt chart. Discussed plan w/Dr Wise. Order for home MASCARA MOLDER sent to [facility] and [facility] RN will be out to hospital in AM to switch out MASCARA MOLDER pump prior to dc. Discussed this with RN. CM will follow. Date Signed: 05/17/2017 05:20 PM Electronically Signed By:Eliana Hopper RN Case Management Discharge Plan Note Case Management Discharge Discharge Order Complete? Answers: Yes Patient to Obtain Answers: via Family Medications Transportation Arranged Answers: [facility] will Pick (Date 05/18/2017 01:00 PM & Time) Case Management Transport Answers: Yes Form Complete Faxed Final Orders Answers: Yes Family Notified Answers: Yes Discharge Comments Notes: Patient discharged home with [facility]. laundry machine tender came to [facility] and hooked patient up to home MASCARA MOLDER pump and O2. laundry machine tender will meet patient and family at home this afternoon. Orders/meds sent to [facility], I also requested that the home RN do Lovenox teaching with patient and family. Date Signed: 05/18/2017 12:59 PM Electronically Signed By:Zenobia Amaro RN Intervention Information
== END 2017-05-18 12:55 | disposition hospice, home (50) | DRG 180 ==
LOC: EDUNIT# → OBSVTOIN 23:11 → F2N 05-11 03:02 → F1N 05-12 14:23
PROVIDERS: ADMIT Family Medicine; ATTEND Hospitalist
PROC: 0W993ZZ Drainage of Right Pleural Cavity, Percutaneous Approach (ICD-10-PCS; principal; 2017-05-11)
DX: C78.2 Secondary malignant neoplasm of pleura (principal); J91.0 Malignant pleural effusion; J18.9 Pneumonia, unspecified organism; I26.99 Other pulmonary embolism without acute cor pulmonale; J45.909 Unspecified asthma, uncomplicated; J96.01 Acute respiratory failure with hypoxia; C79.2 Secondary malignant neoplasm of skin; C79.51 Secondary malignant neoplasm of bone; Z85.3 Personal history of malignant neoplasm of breast; Z90.13 Acquired absence of bilateral breasts and nipples; E87.5 Hyperkalemia; E87.1 Hypo-osmolality and hyponatremia; D63.0 Anemia in neoplastic disease; G89.3 Neoplasm related pain (acute) (chronic)
CPT/HCPCS: 82947-QW; 97162-GP; 97165-GO; G8978-GP-CK; G8979-GP-CJ; J0696; J1170; J1650; J1885; J2270; J2405; J2543; J2997; J3370; J7613; Q9967